=== PATIENT | male | born 1930 | race Caucasian/White ===

== ENCOUNTER 2018-05-04 05:51 | Inpatient (IN) ==
[2018-05-04] MEDS ORDERED: Iohexol 350 MG/ML 100 ML Vial (for Cath Lab) IVCONTRAST ONE (05:52)
[2018-05-04 07:00] LABS: Baso # (Auto) 0.1 th/mm3 (0.0-0.2); Baso % (Auto) 0.8 % (0.0-2.0); Eos # (Auto) 0.1 th/mm3 (0.0-0.4); Eos % (Auto) 1.1 % (0.0-4.0); Hematocrit 44.5 % (39.0-51.0); Lymph # (Auto) 2.3 th/mm3 (1.0-4.8); Lymph % (Auto) 19.4 % (9.0-44.0); Mean Corpuscular HGB Conc 33.6 % (32.0-36.0); Mean Corpuscular Hemoglobin 30.8 pg (27.0-34.0); Mean Corpuscular Volume 91.7 fL (80.0-100.0); Mean Platelet Volume 8.2 fL (7.0-11.0); Mono % (Auto) 8.8 % (0.0-8.0); Neut # (Auto) 8.3 th/mm3 (1.8-7.7); Neut % (Auto) 69.9 % (16.0-70.0); Platelet Count 180 th/mm3 (150-450); Red Blood Count 4.85 mil/mm3 (4.50-5.90); White Blood Count 11.9 th/mm3 (4.0-11.0)
[2018-05-04 07:08] LABS: Activated Partial Thrombo Time 27.6 sec (24.3-30.1); INR 1.1 Ratio
[2018-05-04 07:18] LABS: Calcium 9.1 mg/dL (8.5-10.1); Carbon Dioxide 28.6 meq/L (21.0-32.0)
[2018-05-04 08:13] LABS: Bilirubin,Urine Negative (Negative); Clarity,Urine Clear (Clear); Color,Urine Yellow (Yellw/Straw); Glucose,Urine (UA) Negative (Negative); Leukocyte Esterase,Urine Negative (Negative); Mucus,Urine Few /lpf (Occasional); Nitrite,Urine Negative (Negative); Specific Gravity,Urine 1.018 (1.002-1.035); Squamous Epithelial Cell,Urine <1 /hpf (0-5)
--- NOTE | 2018-05-04 08:14 | P.FRAIL ---
Frailty Index Date: May 04, 2018 Height: 167.64 cm Weight: 70.6 kg BMI: 25.1 Assessment Performed: Outpatient - Albumin Normal Albumin range: 3.5-5.0 g/dL Pass/Fail: Pass (4.1) - [place] Activities of Daily Living Bathing (bathes self/help in single area): [place] Dressing (gets/puts clothes on self): [place] (pt legally blind and needs help getting clothes. can dress self) Toileting (goes without help): [place] Transferring (unassisted or mechanical aides): [place] Continence (complete self-control): [place] Feeding (self, prep by another allowed): [place] Total ADL Score: 5 Pass/Fail: Pass - Journeyman Pipe Welder Strength 3 BMI Cutoff for Journeyman Pipe Welder Strength (Kg) <= 24 <= 29 24.1 - 28 <= 30 > 28 <= 32 Journeyman Pipe Welder Strength - Grasp 1: 24 Journeyman Pipe Welder Strength - Grasp 2: 22 Journeyman Pipe Welder Strength - Grasp 3: 22 Journeyman Pipe Welder Strength - Average: 22.6 Pass/Fail: Fail - 15-Foot Walk 3 Height 15-Foot Walk Cutoff Time <= 173 cm >= 7 seconds > 173 cm >= 6 seconds 15-Foot Walk (seconds): 11 (pt legally blind, uses cane, c/o knee pain, no sob) Pass/Fail: Fail - Total Frailty Total Frailty (out of 4): 2
[2018-05-04] MEDS ORDERED: Heparin/NS PF Inj 1,500 ML ONE (08:22)
[2018-05-04] MEDS ORDERED: fentaNYL Citrate Inj 100 MCG/2 ML Ampul ONE (08:32)
--- NOTE | 2018-05-04 09:52 | P.PCN ---
Date of procedure: 05/04/18 Pre-op diagnosis: Severe aortic valve stenosis Procedure: Procedure performed: 1. Fluoroscopy with interpretation 2. Coronary angiography 3. Right heart catheterization Methods: Risks, benefits, and alternatives were discussed with the patient. Patient understood and consented to the procedure. Patient was brought into the catheterization lab and placed in catheterization table. Right groin was prepped and draped in sterile fashion. Right groin was anesthetized with 2% lidocaine. Right femoral vein was accessed and a 7 [place] 11 cm sheath was placed without difficulty. Right common femoral artery was accessed and a 5 [place] 11 cm sheath was placed without difficulty. We had difficulty navigating the tortuous iliac vessels and selectively engaging the coronaries. The right common femoral sheath was upsized to a 6 [place] 25 cm sheath. Coronary angiography: 1. The left main coronary artery has 90% distal stenosis at the bifurcation of the left anterior descending and left circumflex coronary arteries. 2. The left anterior descending coronary artery has quite a bit of tortuosity and gives rise to a diagonal branch. The left anterior descending and diagonal branches have only minor luminal irregularities. 3. The left circumflex also has tortuous vessels in a first obtuse marginal branch with minor luminal irregularities. 4. 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 The mid right coronary artery is a 75% calcific stenosis the posterior descending branch originates off the right coronary artery making it a dominant vessel. The right coronary has only minor luminal irregularities. Right heart catheterization: A 7 [place] pulmonary arterial catheter was advanced to the right femoral venous sheath to the level of the right atrium under fluoroscopic guidance. Hemodynamics were performed in all chambers while venting to the pulmonary The wedge position. Hemodynamics are as follows. 1. Right atrial pressure 7 mmHg 2. Right ventricular pressure 37/3 mmHg 3. Pulmonary arterial pressure 28/8 mmHg 4. Pulmonary He wedge position 9 mmHg 5. Cardiac output 3.9 L/min 6. Cardiac index 2.2 L/min/m Conclusions: 1. 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 Severe aortic valve stenosis 3. Normal left and right-sided filling pressures. Normal cardiac output/index. Plan: We will consult cardiothoracic surgery for consideration of surgical aortic valve replacement in combination with coronary artery bypass surgery. Given the patient's advanced age and comorbidities in addition to calcific aorta, we will have to determine if he is a surgical candidate. A percutaneous approach would be very high risk and involve aortic valvuloplasty, Impella left ventricular percutaneous assist device placement, and multivessel coronary intervention.
--- NOTE | 2018-05-04 09:57 | CATHPROC ---
[employer] HIS Report Study Information Study Number Admission Scheduled Start Study Start [id number] May 04 2018 5:51AM 05/04/2018 May 04 2018 8:11AM [place] Service Cath Endovascular Study Admit Source Facility Department Other [facility] - [facility] Physician and Clinical Staff Initial Michael Gorman Flat Screen Worker Carlos Julian,RN Recorder Saul, Aidan,RT(R) Scrub Viridiana, Selam,PHARMACOGNOSIST TECH2 Procedures Performed Procedure Location (Site) Vessel Name Coronary Angiograms LCA Left Coronary Wire insertion Fem Art (right) Femoral Art Equipment Time Warehouse Incentive Selector Description Size Mfg Part Number Used/Scraped ARROW INTERNATIONAL CATHETER, FR.7 BALLOON [id number] 08:24 FR 7 Used INC. WEDGE PRESSURE *[id number] TRANSDUCER, TRNUOFFER [id number] 08:24 ORTEGA ABREU * Used W/STOCKCOCK *[id number] *[id number] *[id number] [id number] *[id number] *[id number] WIRE, AMPLATZ SUPER STIFF 09:11 [employer] Inc.tech 180CM 87822 Used 3MMJ [id number] 08:24 [employer] BLANKET,WARM AIR CCL * Used *[id number] 08:24 [employer] PACK, CCL CUSTOM * Used *[id number] 08:24 [employer] PACER PEN, SKIN DUAL W/ RULER * Used *[id number] 08:24 [employer] WIRE, 3MMJ .035 180CM 180CM Used *[id number] 08:24 NAMIC MANIFOLD, 2 PORT * Used *[id number] 08:24 NAMIC MANIFOLD, 4 PORT * Used *[id number] 08:24 NYCOMED OMNIPAQUE, 350 MG, 150ML 150ML [id number] Used [id number] 08:24 TERUMO MEDICAL SHEATH, FR5 TERUMO (10CM) FR 5 Used *[id number] 09:00 TERUMO MEDICAL SHEATH, FR5 TERUMO (25CM) FR 5 Used *[id number] 09:05 TERUMO MEDICAL SHEATH, FR6 TERUMO (25CM) FR 6 Used *[id number] 08:24 TERUMO MEDICAL SHEATH, FR7 TERUMO (10CM) FR 7 Used *[id number] Equipment Model, Serial, Lot Number and Expiration Data Description Model Number Serial Number Lot Number Expiration Date WIRE, AMPLATZ SUPER STIFF 3MMJ [id number] 10-06-2020 History: Allergies Allergy Reaction Plavix History: Risk Factors Family History of Hypertension Dyslipidemia Previous [place] Previous Heart Failure Premature CAD Yes Yes Yes No No Prior Valve Prior PCI Prior CABG Surgery No No No Cerebrovascular Peripheral Artery Chronic Lung On Dialysis Diabetes Disease Disease Disease No Yes No No No History: Stress Tests Stress or Imaging Studies Performed No History: Other Current Smoker No Labs Hgb (g/dl) Hct (%) WBC (l/cumm) Platelets (thousands) 11.60-17.00 35.00-51.00 4.00-11.00 150.00-450.00 15.0 44.5 11.9 180 Glucose (mg/dl) BUN (mg/dl) Creatinine (mg/dl) BUN:Creatinine (1:x) 74.00-106.00 7.00-18.00 0.50-1.30 10.00-20.00 90 15 0.9 16.7 Na (meq/l) K (meq/l) 136.00-145.00 3.50-5.10 140 4 INR (PTT:PT) 0.90-1.10 1.1 CPK-MB (ng/ML) 0.50-3.60 Not Drawn Medication Medication Total Dose (Bolus/Oral) Medication Total Dosage/Unit 1% XYLOCAINE 20 mL FENTANYL 50 mcg VERSED 2 mg Medications (Bolus/Oral) Medication Time Given Dosage/Unit Administered By Reason VERSED 05/04/2018 8:42:20 AM 1 mg Carlos Julian 1 mg VERSED given in lab by Carlos Julian RN in Left Antecubital via Peripheral IV. Ordered by Michael Nunn. FENTANYL 05/04/2018 8:43:51 AM 25 mcg Carlos Julian 25 mcg FENTANYL given in lab by Carlos Julian RN in Left Antecubital via Peripheral IV. Ordered by Michael Lozoya. 1% XYLOCAINE 05/04/2018 8:43:53 AM 20 mL Michael Nunn 20 mL 1% XYLOCAINE given in lab by Michael Nunn in Right Groin via Subcutaneous. Ordered by Michael Nunn. VERSED 05/04/2018 8:51:44 AM 1 mg Eliel, Carlos 1 mg VERSED given in lab by Carlos Julian RN in Left Antecubital via Peripheral IV. Ordered by Michael Nunn. FENTANYL 05/04/2018 8:52:01 AM 25 mcg Eliel, Carlos 25 mcg FENTANYL given in lab by Carlos Julian RN in Left Antecubital via Peripheral IV. Ordered by Michael Lozoya. Medication (Drip) Medication Time Given Dosage/Unit Concentration/Unit Diluent (ml) Solution IV Solutions 05/04/2018 8:14:43 AM 0 mL (IV) 500 NaCl .9 Patient arrived on IV Solutions given by Michael Nunn in Left Antecubital via Peripheral IV. Pump/D rip Flow = 20 ml/hr using NaCl .9. Ordered by Michael Nunn. Initial Case Assessment Initial Case Assessment Cardiovascular HR Rhythm NIBP Chest Pain 60 sr 174/85 0 Edema Present Skin color Skin None Normal Warm Dry Circulatory - Right Pulses Dorsalis Pedis Femoral 2 2 Scale (0,1,2,3,4,d) Circulatory - Left Pulses Dorsalis Pedis Femoral 2 2 Scale (0,1,2,3,4,d) Neurological State Oriented to time-place- Alert Moves all extremities person Respiration - General Respiration Rate SpO2 (%) O2 (lpm) (B/min) 18 98 0 Final Case Assessment Cardiovascular HR Rhythm NIBP Chest Pain 55 sr 154/64 0 Edema Present Skin color Skin None Normal Warm Dry Circulatory - Right Pulses Dorsalis Pedis Femoral 2 2 Scale (0,1,2,3,4,d) Circulatory - Left Pulses Dorsalis Pedis Femoral 2 2 Scale (0,1,2,3,4,d) Neurological State Oriented to time-place- Alert Moves all extremities person Respiration - General Respiration Rate SpO2 (%) O2 (lpm) (B/min) 18 99 0 Chronological Log Time Study Chronological Log 8:11:12 Patient arrived via Bed. 8:11:14 Patient Name, D.O.B, / Armband Verified By R.N. 8:11:16 Consent signed by the physician and the patient and verified by the [facility] staff. 8:11:17 Pre-op and post- op instructions given; patient acknowledges understanding of instructions. Verbal Stimulation=~VERBAL~ Physical Stimulation=~PHYSICAL~ Airway=~AIRWAY~ Respiration=~RESPIR ATION~ 8:13:48 TOTAL=~TOTAL~. (0=absent, 1=limited, 2=present) 8:13:56 Patient has been NPO for More than 6Hrs. 8:13:57 Skin Breakdown- 8:13:59 Patient Warmer Placed on the Table. 8:14:32 Patient Warmer Placed on the Table. 8:14:34 Ashley Prominences Protected 8:14:36 A # 20 IV was noted in the Antecubital (left). Grade = 0 Patient arrived on IV Solutions given by Michael Nunn in Left Antecubital via Peripheral IV. Pump/Drip Flow = 20 8:14:43 ml/hr using NaCl .9. Ordered by Michael Nunn. 8:14:48 History and physical on the chart or being dictated. 8:14:49 Assessment: Initial Case Vitals capture started with the following parameters, Patient=Adult, Interval=5 min, Initial Pr yrxyce=624 mmHg, 8:17:23 Deflation Rate=5 mmHg, Cuff placed on Left Arm Assessment: Initial Case, HR=60 BPM, Rhythm=sr, RBTS=365/85 mmhg, Chest Pain=0, Edema=None, [place] r=Normal, Skin = Warm, Dry Right Pulses: Dwayne Ped=2, Femoral=2 8:17:35 Left Pulses: Dwayne Ped=2, Femoral=2 Neurological: State=Alert, Ox3, DOHERTY Respiration: Resp=18 B/min, SpO2=98 %, O2=0 lpm 8:18:05 PAAR=591/85 mmhg, SpO2=97.0 %, Resp=14 B/min, Rose=2 8:18:24 Bilateral groins prepped with 2% chlorhexidine, and draped after a 3 minute waiting time. 8:21:38 Reference ECG taken 8:23:11 HR=63 bpm, TDLH=243/72 mmhg, XlM5=065.0 %, Resp=12 B/min 8:28:12 HR=53 bpm, PFAL=696/72 mmhg, SpO2=99.0 %, Resp=9 B/min, Rose=2 8:29:41 Pressure channel 1 zeroed. 8:33:13 HR=49 bpm, FMCW=040/57 mmhg, SpO2=99.0 %, Resp=7 B/min, Rose=2 8:34:34 MD paged 8:38:10 HR=58 bpm, SYZX=773/60 mmhg, SpO2=99.0 %, Resp=7 B/min, Orse=2 Time Out. Correct patient, correct procedure, correct physician, labs, allergies, and equipment verified with hoisting laborer 8:39:27 team present. Fire risk assesment completed (see hard stop sheet for coding). Time Out Concu rred by MD and individual staff in procedure. 8:39:37 Presedation re-assessment performed by [facility] RN. 8:42:20 1 mg VERSED given in lab by Carlos Julian RN in Left Antecubital via Peripheral IV. Ordered by Michael Nunn. 8:43:09 HR=52 bpm, ASWC=489/67 mmhg, SpO2=98.0 %, Resp=7 B/min, Rose=2 8:43:41 Case Start 8:43:45 Verbal Stimulation=2 Physical Stimulation=2 Airway=2 Respiration=2 TOTAL=8. (0=absent, 1=joyce ited, 2=present) 8:43:51 25 mcg FENTANYL given in lab by Carlos Julian RN in Left Antecubital via Peripheral IV. Orde red by Michael Nunn. 8:43:53 20 mL 1% XYLOCAINE given in lab by Michael Nunn in Right Groin via Subcutaneous. Ordered b Michael Denis. 8:45:09 Access site was Right Femoral Vein. 8:45:26 A SHEATH, FR7 TERUMO (10CM) FR 7 was advanced into the Fem Vein (right) using the Percutaneo us technique. 8:47:58 HR=56 bpm, XLHX=194/63 mmhg, SpO2=95.0 %, Resp=9 B/min, Rose=2 8:51:44 1 mg VERSED given in lab by Carlos Julian RN in Left Antecubital via Peripheral IV. Ordered by Michael Nunn. 8:52:01 25 mcg FENTANYL given in lab by Carlos Julian RN in Left Antecubital via Peripheral IV. Orde red by Michael Nunn. 8:52:06 Access site was Right Femoral Artery. 8:52:21 A SHEATH, FR5 TERUMO (10CM) FR 5 was advanced into the Fem Art (right) using the Percutaneou s technique. 8:52:59 A CATHETER, FR.7 BALLOON WEDGE PRESSURE FR 7 was inserted via Fem Vein (right) 8:53:03 HR=65 bpm, NIBP=94/52 mmhg, SpO2=89.0 %, Resp=8 B/min, Rose=2 Recorded Pressure: RA, HR=55, Condition=Condition 1 8:53:40 (Right Atrium) RA 76/5 Recorded Pressure: RV, HR=51, Condition=Condition 1 8:53:57 (Right Ventricle) RV 37/3/5 Recorded Pressure: MPA, HR=66, Condition=Condition 1 8:54:35 (Main Pulmonary Artery) MPA 10/03/17 Recorded Pressure: PCW, HR=65, Condition=Condition 1 8:54:52 (Pulmonary Capillary Wedge) PCW 8:55:52 [place]le Catheter Removed A JL 4.0 INFINITI CATHETER FR 5 was advanced over a wire. OMNIPAQUE, 350 MG, 150ML 150ML was use d for 8:56:07 injections. 8:58:32 HR=55 bpm, RAKY=289/65 mmhg, SpO2=94.0 %, Resp=13 B/min, Rose=2 8:59:39 Catheter was removed 8:59:46 A WIRE, 3MMJ .035 180CM 180CM was inserted via Fem Art (right). A SHEATH, FR5 TERUMO (25CM) FR 5 was exchanged in the Fem Art (right). This was necessary in ord er to 8:59:50 accomodate a larger catheter. A JL 5.0 INFINITI CATHETER FR 5 was advanced over a wire. OMNIPAQUE, 350 MG, 150ML 150ML was use d for 9:01:04 injections. 9:03:07 HR=48 bpm, APMF=485/58 mmhg, SpO2=89.0 %, Resp=16 B/min, Rose=2 9:04:17 Catheter was removed 9:04:57 A WIRE, 3MMJ .035 180CM 180CM was inserted via Fem Art (right). A SHEATH, FR6 TERUMO (25CM) FR 6 was exchanged in the Fem Art (right). This was necessary in ord er to 9:05:39 accomodate a larger catheter. 9:08:04 HR=65 bpm, XZPO=785/73 mmhg, SpO2=90.0 %, Resp=13 B/min, Rose=2 A AL 1 INFINITI CATHETER FR 6 was advanced over a wire. OMNIPAQUE, 350 MG, 150ML 150ML was used for 9:08:46 injections. 9:10:32 A WIRE, AMPLATZ SUPER STIFF 3MMJ 180CM was inserted via Fem Art (right). 9:11:52 Wire removed 9:13:07 HR=60 bpm, ECRK=815/60 mmhg, SpO2=95.0 %, Resp=10 B/min, Rose=2 After removing the current catheter a AL .75 GUIDE CATHETER FR 6 was advanced over a WIRE, 3MMJ .035 180CM 9:14:18 180CM. 9:18:06 HR=54 bpm, LEHX=388/60 mmhg, SpO2=95.0 %, Resp=16 B/min, Rose=2 9:20:16 The LCA was injected and visualized at various angles. OMNIPAQUE, 350 MG, 150ML 150ML used. Recorded Pressure: Ao, HR=62, Condition=Condition 1 9:22:08 (Aorta) Ao 134/58/86 9:23:50 HR=63 bpm, VGNH=686/49 mmhg, SpO2=98.0 %, Resp=11 B/min, Rose=2 9:26:53 Catheter was removed 9:26:58 Case End (Physician broke scrub) 9:28:06 HR=61 bpm, JFQK=837/63 mmhg, SpO2=93.0 %, Resp=10 B/min, Rose=2 9:28:27 Sheath removed; pressure applied to access site. 9:33:11 HR=47 bpm, ZHRL=243/55 mmhg, SpO2=95.0 %, Resp=10 B/min, Rose=2 9:38:10 HR=47 bpm, NOSP=778/61 mmhg, SpO2=97.0 %, Resp=14 B/min, Rose=2 9:43:46 HR=61 bpm, RLOB=876/80 mmhg, SpO2=92.0 %, Resp=15 B/min, Rose=2 9:47:11 Saturation: Site=FA (Femoral Artery) , O2=95.1 %, Hgb=15 gm/dl, Condition=Condition 1. Used in calculation. 9:47:27 Saturation: Site=PA (Pulmonary Artery) , O2=66.7 %, Hgb=15 gm/dl, Condition=Condition 1. Use d in calculation. 9:48:17 HR=55 bpm, JAGF=879/78 mmhg, SpO2=96.0 %, Resp=11 B/min, Rose=2 9:54:01 HR=54 bpm, ULKK=506/64 mmhg, Resp=15 B/min, Rose=2 9:55:11 Sterile dressing applied to site Assessment: Final Case, HR=55 BPM, Rhythm=sr, KMIO=417/64 mmhg, Chest Pain=0, Edema=None, Color= Normal, Skin = Warm, Dry Right Pulses: Dwayne Ped=2, Femoral=2 9:55:45 Left Pulses: Dwayne Ped=2, Femoral=2 Neurological: State=Alert, Ox3, DOHERTY Respiration: Resp=18 B/min, SpO2=99 %, O2=0 lpm 9:57:14 Vitals capture stopped. End Study - Contrast Media Used In Study Contrast Total Opened (mL) Total Used (mL) Total Wasted (mL) Omnipaque 75 75 0 End Study - Maximum Contrast Load Max Contrast Load (mL) 392.2 End Study - Radiation Exposure Fluoro Time (minutes) 15.3 End Study - Patient Disposition Complications Transferred To No Outpatient Bed
[2018-05-04] MEDS: Sod Chloride 0.9% Inj 1,000 ML IV.CONT SCH (10:07)
[2018-05-04] MEDS ORDERED: Atropine Inj 1 MG/10 ML Syringe ONE (10:19)
--- NOTE | 2018-05-04 11:21 | P.PNCV ---
- Note Subjective/Hospital Course: pt seen and evaluated for possible surgical AVR vs TAVR CABG vs high risk PCI sts data discussed with pt RISK SCORES About the STS Risk Calculator Procedure: AV Replacement + CAB Risk of Mortality: 7.428% Morbidity or Mortality: 32.395% Long Length of Stay: 20.18% Short Length of Stay: 10.129% Permanent Stroke: 4.051% Prolonged Ventilation: 21.751% DSW Infection: 0.447% Renal Failure: 9.044% Reoperation: 13.318% Objective: Vital Signs - 24 hr 05/04/18 07:06 05/04/18 10:05 Temperature 98.0 F Pulse Rate 64 Respiratory Rate 18 Blood Pressure 185/72 H Pulse Oximetry 96 99 Labs: Laboratory Results - last 12 hr 05/04/18 05/04/18 05/04/18 06:25 06:25 06:25 WBC 11.9 H RBC 4.85 Hgb 15.0 Hct 44.5 MCV 91.7 MCH 30.8 MCHC 33.6 RDW 14.0 Plt Count 180 MPV 8.2 Neut % (Auto) 69.9 Lymph % (Auto) 19.4 [place] % (Auto) 8.8 H Eos % (Auto) 1.1 Baso % (Auto) 0.8 Neut # (Auto) 8.3 H Lymph # (Auto) 2.3 [place] # (Auto) 1.0 H Eos # (Auto) 0.1 Baso # (Auto) 0.1 WBC Differential . Differential Comment Auto diff final PT 11.0 D INR 1.1 APTT 27.6 Sodium Potassium Chloride Carbon Dioxide Anion Gap BUN Creatinine Estimated GFR Random Glucose Calcium Albumin Urine Color Urine Clarity Urine pH Ur Specific [place] Urine Protein Urine Glucose (UA) Urine Ketones Urine Occult Blood Urine Nitrate Urine Bilirubin Urine Urobilinogen Ur Leukocyte Esterase Urine RBC Urine WBC Ur Squamous Epith Cells Urine Mucus Micro UA Comment Ur Microscopic Review Urine Culture Comments Blood Type A Positive Blood Type Recheck Required Antibody Screen Negative 05/04/18 05/04/18 05/04/18 06:25 06:25 06:40 WBC RBC Hgb Hct MCV MCH MCHC RDW Plt Count MPV Neut % (Auto) Lymph % (Auto) [place] % (Auto) Eos % (Auto) Baso % (Auto) Neut # (Auto) Lymph # (Auto) [place] # (Auto) Eos # (Auto) Baso # (Auto) WBC Differential Differential Comment PT INR APTT Sodium 140 Potassium 4.0 Chloride 106 Carbon Dioxide 28.6 Anion Gap 5 BUN 15 Creatinine 0.95 Estimated GFR 75 L Random Glucose 90 Calcium 9.1 Albumin 4.1 Urine Color Yellow Urine Clarity Clear Urine pH 5.0 Ur Specific [place] 1.018 Urine Protein Negative Urine Glucose (UA) Negative Urine Ketones Negative Urine Occult Blood Negative Urine Nitrate Negative Urine Bilirubin Negative Urine Urobilinogen 2.0 H Ur Leukocyte Esterase Negative Urine RBC 1 Urine WBC Less than 1 Ur Squamous Epith Cells <1 Urine Mucus Few H Micro UA Comment Culture not ind Ur Microscopic Review Not Reportable Urine Culture Comments Culture not ind Blood Type Blood Type Recheck Antibody Screen Result Diagrams: 05/04/18 06:25 05/04/18 06:25
[2018-05-04 12:08] LABS: Albumin 4.1 g/dL (3.4-5.0)
[2018-05-04 12:10] LABS: Total Protein 7.6 g/dL (6.4-8.2)
[2018-05-04 17:07] LABS: Hemoglobin A1c 5.4 % (4.3-6.0)
--- NOTE | 2018-05-04 17:18 | CT ---
EXAM DATE: 05/04/2018 2:16 PM EDT AGE/SEX: 87 years / Male INDICATIONS: Preoperative transaortic valve replacement. CLINICAL DATA: This is the patient's initial encounter. Patient reports that signs and symptoms have been present for 1 day and indicates a pain score of 0/10. MEDICAL/SURGICAL HISTORY: Aneurysm, abdominal. Hiatal hernia. Carcinoma, prostatic. None. RADIATION DOSE: 45.16 CTDI (mGy) COMPARISON: No prior exams available for comparison. TECHNIQUE: Volumetric scanning was performed using a multi-row detector CT scanner during bolus infu helder of 90 ml Omnipaque 350 (iohexol) nonionic water-soluble contrast as a single exam dose. The da ta was post processed with a variety of visualization algorithms including full volume maximum intens ity projection, multi-planar sliding thin slab reformation, curved planar reformation, and surface re ndering techniques. Using automated exposure control and adjustment of the mA and/or kV according to patient size, radiation dose was kept as low as reasonably achievable to obtain optimal diagnostic q uality images. DICOM format image data is available electronically for review and comparison. FINDINGS: CARDIAC: The coronary system is right dominant. There are coronary calcifications seen throughout th e coronary vessels.. There is no pericardial effusion AORTIC ROOT/VALVE: 3 cusps are evident with moderate calcifications. The aortic root measures 2.5 cm. Mid ascending thoracic aorta measures 3.2 cm with calcifications in the wall of the aorta.. THORACIC AORTA: There are atherosclerotic calcifications throughout the thoracic aortic arch. There is a three-vessel arch which is patent. No evidence of aneurysmal dilatation or dissection. ABDOMINAL AORTA: There is atherosclerotic plaquing throughout the abdominal aorta. There is aneurysm al dilatation of the infrarenal abdominal aorta measuring 4.4 x 4.4 cm. CELIAC ARTERY: The celiac artery is patent. There is a calcified plaque at the origin.. SMA: The SMA is patent with calcified plaque at the origin. RIGHT RENAL ARTERY: The right renal artery is patent. There are some calcified plaques at the origin . No definite high-grade stenosis. LEFT RENAL ARTERY: There is a focal moderate to high-grade stenosis involving the proximal segment o f the left renal artery approximately 1 cm past its origin. There is calcified plaquing at the origin of the left renal artery. The left renal artery is patent. RIGHT COMMON ILIAC: The right common iliac artery is patent with atherosclerotic plaquing. No focal or significant stenosis is demonstrated. The external iliac and common femoral artery are patent. The common femoral measures 1.2 cm.. LEFT COMMON ILIAC: The left common iliac artery is patent with atherosclerotic plaquing. The externa l iliac artery and common femoral artery are patent. The common femoral measures 1.4 cm.. THORAX: There is a 1.6 cm focal infiltrate versus density in the peripheral right upper lung. There is some chronic changes in both lung fleming. There is some scarring in both bases. ABDOMEN: There is some fatty infiltration of the liver. No dilated biliary ducts. The gallbladder is unremarkable. The spleen and pancreas are grossly within normal limits. The adrenal glands are unrem arkable. Both kidneys are functioning. There is no hydronephrosis. The bowel gas pattern is within no rmal limits. There is stool throughout the colon. PELVIS: The urinary bladder is unremarkable. There are degenerative changes the lumbar spine and pel vis. CONCLUSION: 1. There is a 1.6 cm focal infiltrate versus mass density in the peripheral right upper lung. This m ay be a focal inflammatory process versus mass. There are no prior studies for comparison. If this do es not resolve after appropriate medical therapy, a PET CT could be performed for further evaluation. 2. There is aneurysmal dilatation of the infrarenal abdominal aorta measuring 4.4 x 4.4 cm. There is diffuse atherosclerotic changes throughout the thoracic and abdominal aorta. 3. Short segment focal moderate to possibly high-grade stenosis involving the proximal segment of th e left renal artery. Electronically signed by: Nikos Howell MD 05/04/2018 5:16 PM EDT
[2018-05-05 05:40] LABS: Baso # (Auto) 0.1 th/mm3 (0.0-0.2); Baso % (Auto) 0.6 % (0.0-2.0); Eos # (Auto) 0.1 th/mm3 (0.0-0.4); Eos % (Auto) 0.7 % (0.0-4.0); Hematocrit 35.3 % (39.0-51.0); Hemoglobin 12.1 gm/dL (13.0-17.0); Lymph # (Auto) 2.1 th/mm3 (1.0-4.8); Mean Corpuscular HGB Conc 34.2 % (32.0-36.0); Mean Corpuscular Hemoglobin 30.7 pg (27.0-34.0); Mean Corpuscular Volume 89.9 fL (80.0-100.0); Mean Platelet Volume 8.4 fL (7.0-11.0); Mono # (Auto) 1.3 th/mm3 (0.0-0.9); Mono % (Auto) 11.2 % (0.0-8.0); Neut # (Auto) 8.2 th/mm3 (1.8-7.7); Neut % (Auto) 69.5 % (16.0-70.0); Platelet Count 144 th/mm3 (150-450); Red Blood Count 3.93 mil/mm3 (4.50-5.90); Red Cell Distribution Width 13.8 % (11.6-17.2); White Blood Count 11.9 th/mm3 (4.0-11.0)
[2018-05-05 06:09] LABS: Anion Gap 10 meq/L (5-15); Blood Urea Nitrogen 16 mg/dL (7-18); Calcium 8.3 mg/dL (8.5-10.1); Carbon Dioxide 23.9 meq/L (21.0-32.0); Chloride 108 meq/L (98-107); Glomerular Filtration Rate Greater Than 89 mL/min (>89); Glucose,Random 87 mg/dL (74-106); Potassium 3.5 meq/L (3.5-5.1); Sodium 142 meq/L (136-145)
--- NOTE | 2018-05-05 06:33 | MB ---
cc: Dominguez Tran MD DATE: 05/04/2018 HISTORY OF PRESENT ILLNESS: History of aortic stenosis, presented to Dr. Nunn's office for a transcatheter aortic valve consultation. They have been following his aortic valve. His aortic valve area is now 0.7 cm with a mean gradient of 48 mmHg. He has been somewhat sedentary, but is still able to do some housework and yard work. He underwent cardiac catheterization today for further evaluation, which showed a 90% distal stenosis in the left main coronary artery at the bifurcation of the LAD and the left circumflex artery. 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 The mid coronary artery had 75% calcific stenosis. He did a right-sided heart catheterization, which showed a right atrial pressure of 7 mmHg, pulmonary artery pressure of 28/8, a wedge pressure of 9, cardiac output of 3.9 with an index of 2.2. We were consulted to evaluate for possible aortic valve replacement in combination with coronary artery bypass grafting versus transcatheter aortic valve replacement and high-risk PCI with Impella ventricular assist device placement. PAST MEDICAL HISTORY: The patient has a significant medical history to include chronic atrial fibrillation, history of abdominal aortic aneurysm without rupture, aortic stenosis, cervical radiculopathy, history of CVA in the past, hypertension and hyperlipidemia. He is legally blind. He has some central vision. Coumadin therapy, osteoarthritis, history of prostate cancer treated with resection 11 years ago, history of sick sinus syndrome. PAST SURGICAL HISTORY: Include bilateral cataract surgery, colonoscopy, EGD, history of bilateral knee replacement, prostatectomy, tonsillectomy. FAMILY HISTORY: Father from heart disease. Mother with old age. 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 Remote history of tobacco abuse for a couple of years, quit in 1950s. Rare alcohol. He is unable to drive due to his blindness. He does, however, do some house and yard work. ALLERGIES: THE PATIENT HAS NO KNOWN ALLERGIES. HOME MEDICATIONS: 1. Diltiazem 120 p.o. daily. 2. Lisinopril 5. He takes 2 tablets at bedtime. 3. Coumadin 4 mg. He takes it 1.5 tabs Friday, Friday, Friday, , Friday, Friday. 4. On Friday, he takes aspirin 81 mg. 5. Fish oil. 6. Lovastatin. 7. Brimonidine eyedrops. 8. Latanoprost eye drops. 9. Tramadol 10. Timolol eyedrops. REVIEW OF SYSTEMS: GENERAL: No night sweats, fever, heat and cold intolerance. SKIN: No psoriasis, itching or hives. HEENT: The patient is legally blind. RESPIRATORY: Some occasional shortness of breath with activity. CARDIOVASCULAR: The patient denies any chest pain. No paroxysmal nocturnal dyspnea or orthopnea. GASTROINTESTINAL: No diarrhea or vomiting. GENITOURINARY: No burning, frequency, urgency. CENTRAL NERVOUS SYSTEM: History of prior cerebrovascular accident. ENDOCRINOLOGY: No hypothyroidism or diabetes. PHYSICAL EXAMINATION: VITAL SIGNS: Blood pressure 180/70, heart rate is 64, afebrile, O2 saturation 99 on 2 liters patient is awake, alert, in no acute distress. HEENT: Head is normocephalic, atraumatic. Pupils are equal. Oral mucosa pink, moist. NECK: Supple. No JVD. CARDIOVASCULAR: Heart sounds S1, S2. There is a grade 3/6 systolic murmur best heard on the left sternal border. LUNGS: Clear to auscultation. No wheezes, rales or rhonchi. ABDOMEN: Soft, nontender. No masses or organomegaly. Right groin catheterization site has a small hematoma. EXTREMITIES: No cyanosis, clubbing or edema. The patient did complain of some right foot numbness post-cath. We were able to obtain a strong palpable popliteal pulse and also Doppler post-tibial pulse. Please note, the patient also had a vagal response while they were holding pressure on the groin post-sheath removal and did require IV bolus of fluid and atropine, which he recovered immediately. LABORATORY DATA: Shows hemoglobin 15, hematocrit of 44, white cell count of 11.9, platelet count of 180. Sodium 140, potassium 4.0, BUN of 15, creatinine 0.95. INR 1.1. Urinalysis is unremarkable. Albumin level 4.1. ASSESSMENT AND PLAN: This is an 87-year-old male with severe aortic stenosis with a valve area of 0.7. He has coronary artery disease involving the left main and also the right coronary artery with ejection fraction of 55%. The cardiac films will be evaluated by Dr. Dominguez Tran. The risk of mortality is 7.428, morbidity/mortality of 32. Decision will be made and also with discussion with Dr. Nunn in regard to plan for treatment, which will be decided as per Dr. Dominguez Tran. Brittani Sampson [employer] SUPERVIS[employer] dictating for Dr. Dominguez Tran The patient was examined and chart reviewed on 05/04/2018. I agree with above. The ECHO and angiographic findings were discussed in detail with the patient. I agree that he will maximally benefit from coronary artery bypass grafting and aortic valve replacement therapy. The option of mechanical versus tissue valve was discussed in detail as well as the advantages and disadvantages of both types of valves. He understands the provided information and wishes to discuss it further with his spouse prior to agreeing to surgical intervention. Additionally given his advanced age and significant calcification on fluoroscopy , he will need a chest CT to assure that he does not have heavily calcified or porcelain ascending aorta which would preclude surgical intervention. Should he not be a surgical candidate, then a high risk PCI followed by TAVR may be a viable alternative option. Further therapy depending upon the CT findings as well as the patient's decision regarding his care. Thank you for allowing me to participate in the care of this patient. MD MAK Giron/lemuel , 11:31 AM , 11:43 AM CHRIS
--- NOTE | 2018-05-05 08:37 | P.PNCA ---
Subjective Interval history: no complaints doing well at bedside Medications and Allergies Active Medications: Active Medications Sodium Chloride (Ns Inj) 1,000 mls @ 30 mls/hr IV.CONT .Q24H [facility] Last Infusion: 05/04/18 10:15 Dose: 30 mls/hr Metoclopramide HCl (Reglan Inj) 10 mg IV.PUSH Q4H PRN; Protocol PRN Reason: NAUSEA Oxycodone/Acetaminophen (Percocet 5/325 Mg) 1 tab PO Q4H PRN PRN Reason: PAIN SCALE 1 TO 4 Sodium Chloride (Ns Flush) 2 ml IV.FLUSH BID YULIANA Sodium Chloride (Ns Flush) 2 ml IV.FLUSH PRN PRN PRN Reason: FLUSH AFTER USING IV ACCESS Allergies Allergy/AdvReac Type Severity Reaction Status Date / Time No Known Allergies Allergy Verified 05/04/18 07:24 Home Medications Medication Instructions Recorded Confirmed Type aspirin [Aspirin Low Dose] 81 mg PO DAILY 05/04/18 05/04/18 History diltiazem HCl 120 mg PO DAILY 05/04/18 05/04/18 History dorzolamide-timolol 1 drp OPHTHALMIC (EYE) BID 05/04/18 05/04/18 History latanoprost 1 drp OPHTHALMIC (EYE) QPM 05/04/18 05/04/18 History lisinopril 10 mg PO DAILY 05/04/18 05/04/18 History lovastatin 40 mg PO DAILY 05/04/18 05/04/18 History polyethylene glycol 3350 17 g PO DAILY PRN 05/04/18 05/04/18 History tramadol 50 mg PO Q6H PRN 05/04/18 05/04/18 History Physical Exam Vital signs: Vital Signs 05/04/18 10:05 05/04/18 20:00 05/05/18 00:00 Temperature 97.9 F 98.2 F Pulse Rate 66 51 L Respiratory Rate 18 18 Blood Pressure 122/58 L 138/63 Pulse Oximetry 99 98 100 05/05/18 04:00 Temperature 97.9 F Pulse Rate 62 Respiratory Rate 20 Blood Pressure 140/74 Pulse Oximetry 100 Intake & Output 05/04/18 05/05/18 05/05/18 18:59 06:59 18:59 Intake Total 515 / 515 240 / 240 Output Total 700 / 700 Balance 515 / 515 -460 / -460 Weight 70.6 kg 72.4 kg Intake: IV 515 / 515 Heparin/NS PF Inj 1,500 ML @ 0 15 / 15 mls/hr .ROUTE .STK-MED ONE Rx#: [id number] NS Inj 1,000 ML @ 30 mls/hr IV. 500 / 500 CONT .Q24H YULIANA Rx#:[id number] Oral 240 / 240 Output: Urine 700 / 700 Stool 0 / 0 Other: Weight On Admission 70.6 kg - Constitutional no acute distress - Routine Neck Exam Absent: JVD - Routine Respiratory Exam Present: CTA bilaterally - Routine Cardiovascular Exam Present: RRR, murmur - Routine Abdominal Exam Present: soft, normoactive bowel sounds - Routine Extremities Exam Absent: edema - Routine Neurological Exam Absent: sensory deficit, motor deficit Results 05/05/18 03:59 05/05/18 03:59 Cardiac Enzymes 05/04/18 Range/Units 06:25 AST 11 L (15-37) U/L Coagulation 05/04/18 Range/Units 06:25 PT 11.0 D (9.8-11.6) sec APTT 27.6 (24.3-30.1) sec CBC 05/04/18 05/05/18 Range/Units 06:25 03:59 WBC 11.9 H 11.9 H (4.0-11.0) th/mm3 RBC 4.85 3.93 L (4.50-5.90) mil/mm3 Hgb 15.0 12.1 L D (13.0-17.0) gm/dL Hct 44.5 35.3 L (39.0-51.0) % Plt Count 180 144 L (150-450) th/mm3 Neut # (Auto) 8.3 H 8.2 H (1.8-7.7) th/mm3 Lymph # (Auto) 2.3 2.1 (1.0-4.8) th/mm3 [place] # (Auto) 1.0 H 1.3 H (0.0-0.9) th/mm3 Eos # (Auto) 0.1 0.1 (0.0-0.4) th/mm3 Baso # (Auto) 0.1 0.1 (0.0-0.2) th/mm3 Comprehensive Metabolic Panel 05/04/18 05/04/18 05/04/18 Range/Units 06:25 06:25 06:25 Sodium 140 (136-145) meq/L Potassium 4.0 (3.5-5.1) meq/L Chloride 106 (98-107) meq/L Carbon Dioxide 28.6 (21.0-32.0) meq/L BUN 15 (7-18) mg/dL Creatinine 0.95 (0.60-1.30) mg/dL Calcium 9.1 (8.5-10.1) mg/dL Direct Bilirubin 0.2 (0.0-0.2) mg/dL Indirect Bilirubin 0.5 (0.0-0.8) mg/dL AST 11 L (15-37) U/L ALT 18 (12-78) U/L Alkaline Phosphatase 96 (45-117) U/L Total Protein 7.6 (6.4-8.2) g/dL Albumin 4.1 4.1 (3.4-5.0) g/dL 05/05/18 Range/Units 03:59 Sodium 142 (136-145) meq/L Potassium 3.5 (3.5-5.1) meq/L Chloride 108 H (98-107) meq/L Carbon Dioxide 23.9 (21.0-32.0) meq/L BUN 16 (7-18) mg/dL Creatinine 0.81 (0.60-1.30) mg/dL Calcium 8.3 L D (8.5-10.1) mg/dL Direct Bilirubin (0.0-0.2) mg/dL Indirect Bilirubin (0.0-0.8) mg/dL AST (15-37) U/L ALT (12-78) U/L Alkaline Phosphatase (45-117) U/L Total Protein (6.4-8.2) g/dL Albumin (3.4-5.0) g/dL Intake and Output 05/04/18 05/05/18 05/05/18 22:59 06:59 14:59 Intake Total 240 / 240 Output Total 700 / 700 Balance -460 / -460 Intake: Oral 240 / 240 Output: Urine 700 / 700 Stool 0 / 0 Other: Weight 72.4 kg - Imaging and Cardiology Imaging: Impressions Chest CT 05/04/18 00:00 CONCLUSION: 1. There is a 1.6 cm focal infiltrate versus mass density in the peripheral right upper lung. This may be a focal inflammatory process versus mass. There are no prior studies for comparison. If this does not resolve after appropriate medical therapy, a PET CT could be performed for further evaluation. 2. There is aneurysmal dilatation of the infrarenal abdominal aorta measuring 4.4 x 4.4 cm. There is diffuse atherosclerotic changes throughout the thoracic and abdominal aorta. 3. Short segment focal moderate to possibly high-grade stenosis involving the proximal segment of the left renal artery. Assessment and Plan - Assessment (1) Severe aortic stenosis Code(s): I35.0 - Nonrheumatic aortic (valve) stenosis Status: Acute (2) Coronary artery disease Code(s): I25.10 - Atherosclerotic heart disease of [place] coronary artery without angina pectoris Status: Acute - Plan discussed case in TAVR conference discussed case with Dr. Tran patient to consider surgical AVR + CABG. if declines, will decide strategy for revascularization (BAV +/- Impella + multiple vessel PCI (LM,LAD,LCx,RCA) continue supportive care high risk for sudden cardiac
--- NOTE | 2018-05-05 09:49 | P.PNCV ---
- Note Subjective/Hospital Course: 87/ male history of aortic stenosis, presented to Dr. Nunn's office for a transcatheter aortic valve consultation. His aortic valve area is now 0.7 cm with a mean gradient of 48 mmHg. He has been somewhat sedentary, but is still able to do some housework and yard work. He underwent cardiac catheterization today for further evaluation, which showed a 90% distal stenosis in the left main coronary artery at the bifurcation of the LAD and the left circumflex artery. 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 The mid coronary artery had 75% calcific stenosis. Right-sided heart catheterization, showed a right atrial pressure of 7 mmHg, pulmonary artery pressure of 28/8, a wedge pressure of 9, cardiac output of 3.9 with an index of 2.2. We were consulted to evaluate for possible aortic valve replacement in combination with coronary artery bypass grafting versus transcatheter aortic valve replacement and high-risk PCI with Impella ventricular assist device placement. PAST MEDICAL HISTORY: chronic atrial fibrillation, history of abdominal aortic aneurysm without rupture, aortic stenosis, cervical radiculopathy, history of CVA in the past, hypertension and hyperlipidemia. He is legally blind. He has some central vision. Coumadin therapy, osteoarthritis, history of prostate cancer treated with resection 11 years ago, history of sick sinus syndrome. 05/05 pt now at bedside, further discussion with pt and and Dr Nunn in regards to treatment options Dr Tran will discuss final plans with and pt this afternoon Objective: Vital Signs - 24 hr 05/04/18 10:05 05/04/18 20:00 05/05/18 00:00 Temperature 97.9 F 98.2 F Pulse Rate 66 51 L Respiratory Rate 18 18 Blood Pressure 122/58 L 138/63 Pulse Oximetry 99 98 100 05/05/18 04:00 Temperature 97.9 F Pulse Rate 62 Respiratory Rate 20 Blood Pressure 140/74 Pulse Oximetry 100 Labs: Laboratory Results - last 12 hr 05/05/18 05/05/18 03:59 03:59 WBC 11.9 H RBC 3.93 L Hgb 12.1 L D Hct 35.3 L MCV 89.9 MCH 30.7 MCHC 34.2 RDW 13.8 Plt Count 144 L MPV 8.4 Neut % (Auto) 69.5 Lymph % (Auto) 18.0 [place] % (Auto) 11.2 H Eos % (Auto) 0.7 Baso % (Auto) 0.6 Neut # (Auto) 8.2 H Lymph # (Auto) 2.1 [place] # (Auto) 1.3 H Eos # (Auto) 0.1 Baso # (Auto) 0.1 WBC Differential . Differential Comment Auto diff final Sodium 142 Potassium 3.5 Chloride 108 H Carbon Dioxide 23.9 Anion Gap 10 BUN 16 Creatinine 0.81 Estimated GFR Greater than 89 Random Glucose 87 Calcium 8.3 L D Result Diagrams: 05/05/18 03:59 05/05/18 03:59 Pulmonary: GENERAL: A&O x 3 / legally blind SKIN: Warm and dry. HEAD: Normocephalic. EYES: No scleral icterus. No injection or drainage. NECK: Supple, trachea midline. No JVD or lymphadenopathy. CARDIOVASCULAR: irregular rate and rhythm, 3/6 MAREN RESPIRATORY: Breath sounds equal bilaterally. No accessory muscle use. GASTROINTESTINAL: Abdomen soft, non-tender, nondistended. MUSCULOSKELETAL: No cyanosis, or edema. BACK: Nontender without obvious deformity. No CVA tenderness.
[2018-05-05] MEDS: Sod Chloride 0.9% Inj 1,000 ML IV.CONT SCH (10:00)
[2018-05-05] MEDS ORDERED: Polyethylene Glycol 3350 17 GM Packet PO PRN (15:39)
[2018-05-05] MEDS ORDERED: Dextrose 50% in Water 50 ML Vial IV.PUSH PRN (15:43)
[2018-05-05] MEDS ORDERED: Insulin Regular (For Infusion) 100 UNIT in Sodium Chlor 0.9% Inj 99 ML IV.CONT PRN (15:43)
[2018-05-05] MEDS ORDERED: Sodium Chloride 0.9% Irr Bot 500 ML, ceFAZolin Inj 500 MG IRRIGATION SCH ×2 (15:45)
[2018-05-05] MEDS ORDERED: Sodium Chlor 0.9% Inj 77.5 ML, Papaverine Inj 60 MG, Nitroglycerin Inj 100 MCG, dilTIAZ... IRRIGATION SCH ×3 (15:45)
[2018-05-05] MEDS ORDERED: Chlorhexidine 4% Topical 120 APPLIC/120 ML Bottle TOPICAL SCH (15:45)
[2018-05-05 18:06] LABS: Bilirubin,Urine Negative (Negative); Clarity,Urine Hazy (Clear); Color,Urine Yellow (Yellw/Straw); Glucose,Urine (UA) Negative (Negative); Leukocyte Esterase,Urine Negative (Negative); Mucus,Urine Few /lpf (Occasional); Nitrite,Urine Negative (Negative); Specific Gravity,Urine 1.017 (1.002-1.035); Squamous Epithelial Cell,Urine <1 /hpf (0-5); Urobilinogen,Urine 4 or Greater mg/dL (Less than 2)
--- NOTE | 2018-05-05 20:24 | US ---
EXAM DATE: 05/05/2018 3:43 PM EDT AGE/SEX: 87 years / Male INDICATIONS: PreOp cardiac surgery. CLINICAL DATA: This is the patient's initial encounter. Patient reports that signs and symptoms have been present for 1 day and indicates a pain score of 0/10. MEDICAL/SURGICAL HISTORY: Aneurysm, abdominal. Hypertension. Atrial fibrillation. Angina. Aort ic stenosis. Arthritis. Blind. Hyperlipidemia. Prostate cancer. Sick sinus syndrome. Hiatal hernia. None. COMPARISON: No prior exams available for comparison. VELOCITY PARAMETERS: ICA/CCA Ratio: Right 1.6 , Left 1.2 ICA: Right 104.8 cm/sec, Left 94.6 cm/sec CCA: Right 65.8 cm/sec, Left 80.2 cm/sec ECA: Right 73.5 cm/sec, Left 75.0 cm/sec Vertebral: Right 63.3 cm/sec antegrade, Left 40.9 cm/sec antegrade FINDINGS: Right Carotid: Moderate partially calcified arteriosclerotic plaque is visualized throughout the [place] common carotid and proximal ICA. Less than 50% luminal narrowing by grayscale analysis.The wavefo emely are within normal limits. Left Carotid: Moderate partially calcified arteriosclerotic plaque is visualized throughout the dist al common carotid and proximal ICA. Less than 50% luminal narrowing by grayscale analysis.. The wavef orms are within normal limits. Other: None. CONCLUSION: Calcified atherosclerotic plaque bilaterally slightly more abundant on the left without a hemodynamic ally significant stenosis involving either carotid artery. Antegrade flow involving both vertebral ar teries. Electronically signed by: Mauricio Paredes MD 05/05/2018 8:22 PM EDT
--- NOTE | 2018-05-05 20:32 | US ---
EXAM DATE: 05/05/2018 3:43 PM EDT AGE/SEX: 87 years / Male INDICATIONS: PreOp cardiac surgery. CLINICAL DATA: This is the patient's initial encounter. Patient reports that signs and symptoms have been present for 1 day and indicates a pain score of 0/10. MEDICAL/SURGICAL HISTORY: . Atrial fibrillation. Angina. Aortic stenosis. Arthritis. Blind. Hyp erlipidemia. Prostate cancer. Sick sinus syndrome. Hiatal hernia. None. COMPARISON: No prior exams available for comparison. TECHNIQUE: Venous ultrasound of both lower extremities was performed from the inguinal ligament to t he proximal calf. Real-time, color Doppler and spectral tracing, compression and augmentation techni ques were used. FINDINGS: Right Leg: Normal compression of the deep venous system from the inguinal region to the proximal jessica f. No echogenic clot is seen. Normal response of the venous system to augmentation and respiration. Left Leg: Normal compression of the deep venous system from the inguinal region to the proximal calf . No echogenic clot is seen. Normal response of the venous system to augmentation and respiration. Other: None. CONCLUSION: Negative exam. No sonographic or Doppler findings of deep venous thrombosis. Electronically signed by: Zachary Wills MD 05/05/2018 8:30 PM EDT
--- NOTE | 2018-05-05 20:33 | US ---
EXAM DATE: 05/05/2018 3:43 PM EDT AGE/SEX: 87 years / Male INDICATIONS: PreOp cardiac surgery. CLINICAL DATA: This is the patient's initial encounter. Patient reports that signs and symptoms have been present for 1 day and indicates a pain score of 0/10. MEDICAL/SURGICAL HISTORY: . Atrial fibrillation. Angina. Aortic stenosis. Arthritis. Blind. Hyp erlipidemia. Prostate cancer. Sick sinus syndrome. Hiatal hernia. None. COMPARISON: [facility] – [place], VENOUS DOPPLER LEG BI, 05/05/2018. . MEASUREMENTS: RIGHT THIGH: Proximal:__8 mm Mid:__ 2 mm Distal:__2 mm LEFT THIGH: Proximal:__6 mm Mid:__3 mm Distal:__2 mm RIGHT CALF: Proximal:__Non-visualized Mid:__Non-visualized Distal:__Non-visualized LEFT CALF: Proximal:__1 mm Mid:__Non-visualized Distal:__Non-visualized FINDINGS: The venous system of the lower extremities are patent by color Doppler imaging. Measurements of the leg veins (in mm) are listed above. CONCLUSION: 1. Venous mapping as above. 2. Nonvisualization of the greater saphenous throughout the right calf. Nonvisualization of the grea ter saphenous in the mid and distal portions of the left calf. Electronically signed by: Zachary Wills MD 05/05/2018 8:31 PM EDT
[2018-05-05] MEDS: Latanoprost 0.005% Opth Drops 2.5 ML Bottle EACH EYE SCH (20:47)
[2018-05-05] MEDS: Dorzolamide-Timolol 2/0.5% Opth Drops 10 ML Bottle EACH EYE SCH (20:47)
[2018-05-05] MEDS: Docusate Sodium 100 MG Capsule PO SCH (20:47)
[2018-05-06] MEDS: Sod Chloride 0.9% Inj 1,000 ML IV.CONT SCH (08:29)
[2018-05-06] MEDS: dilTIAZem CD 120 MG Capsule PO SCH (08:30)
[2018-05-06] MEDS: Dorzolamide-Timolol 2/0.5% Opth Drops 10 ML Bottle EACH EYE SCH ×2 (08:30→20:41)
[2018-05-06] MEDS: Docusate Sodium 100 MG Capsule PO SCH ×2 (08:30→20:43)
--- NOTE | 2018-05-06 11:05 | P.PNCV ---
- Note Subjective/Hospital Course: 87/ male history of aortic stenosis, presented to Dr. Nunn's office for a transcatheter aortic valve consultation. His aortic valve area is now 0.7 cm with a mean gradient of 48 mmHg. He has been somewhat sedentary, but is still able to do some housework and yard work. He underwent cardiac catheterization today for further evaluation, which showed a 90% distal stenosis in the left main coronary artery at the bifurcation of the LAD and the left circumflex artery. 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 The mid coronary artery had 75% calcific stenosis. Right-sided heart catheterization, showed a right atrial pressure of 7 mmHg, pulmonary artery pressure of 28/8, a wedge pressure of 9, cardiac output of 3.9 with an index of 2.2. We were consulted to evaluate for possible aortic valve replacement in combination with coronary artery bypass grafting versus transcatheter aortic valve replacement and high-risk PCI with Impella ventricular assist device placement. PAST MEDICAL HISTORY: chronic atrial fibrillation, history of abdominal aortic aneurysm without rupture, aortic stenosis, cervical radiculopathy, history of CVA in the past, hypertension and hyperlipidemia. He is legally blind. He has some central vision. Coumadin therapy, osteoarthritis, history of prostate cancer treated with resection 11 years ago, history of sick sinus syndrome. 05/05 pt now at bedside, further discussion with pt and and Dr Nunn in regards to treatment options Dr Tran will discuss final plans with and pt this afternoon 05/06 pt and agreeable for surgery on Friday venous mapping : nonvisualization of greater saphenous throughout the right calf , nonvisualization of greater saphenous in the mid and distal portions of left calf CT chest aneurysmal dilatation of infrarenal abdominal aorta 4.4x4.4cm 1.6 cm focal infiltrate vs mass peripheral right upper lung Objective: Vital Signs - 24 hr 05/05/18 12:00 05/05/18 19:00 05/05/18 20:00 Temperature 97.8 F 98.7 F Pulse Rate 72 62 64 Respiratory Rate 20 14 Blood Pressure 120/76 158/67 H Pulse Oximetry 96 98 05/05/18 21:00 05/05/18 22:00 05/05/18 23:00 Temperature 98.3 F Pulse Rate 64 54 L 58 L Respiratory Rate 14 Blood Pressure 155/67 H Pulse Oximetry 100 05/06/18 00:14 05/06/18 01:00 05/06/18 02:00 Temperature Pulse Rate 70 61 65 Respiratory Rate Blood Pressure Pulse Oximetry 05/06/18 03:00 05/06/18 05:11 05/06/18 06:00 Temperature 98.0 F Pulse Rate 59 L 55 L 56 L Respiratory Rate 14 Blood Pressure 124/58 L Pulse Oximetry 97 05/06/18 07:00 05/06/18 08:00 05/06/18 09:00 Temperature 97.9 F Pulse Rate 55 L 64 65 Respiratory Rate 17 Blood Pressure 160/70 H Pulse Oximetry 96 05/06/18 10:00 Temperature Pulse Rate 56 L Respiratory Rate Blood Pressure Pulse Oximetry GENERAL: A&O x 3 , legally blind SKIN: Warm and dry. HEAD: Normocephalic. EYES: No scleral icterus. No injection or drainage. NECK: Supple, trachea midline. No JVD or lymphadenopathy. CARDIOVASCULAR: irregular rate and rhythm 3/6 SM, no gallops, or rubs. RESPIRATORY: Breath sounds equal bilaterally. No accessory muscle use. GASTROINTESTINAL: Abdomen soft, non-tender, nondistended. MUSCULOSKELETAL: No cyanosis, or edema. BACK: Nontender without obvious deformity. No CVA tenderness. Result Diagrams: 05/05/18 03:59 05/05/18 03:59 - Plan (1) Atrial fibrillation Plan: for left atrial appendage excision (4) Coronary artery disease Plan: for surgery on Friday ASA, CCB
--- NOTE | 2018-05-06 11:40 | XR ---
EXAM DATE: 05/06/2018 12:00 AM EDT AGE/SEX: 87 years / Male INDICATIONS: Evaluate for pneumonia, pneumothorax, or communicable disease. Pre op cardiac surgery CLINICAL DATA: This is the patient's subsequent encounter. Patient reports that signs and symptoms h ave been present for 2 days and indicates a pain score of 0/10. MEDICAL/SURGICAL HISTORY: . A Fib. Angina. Aortic stenosis. Prostate cancer. Hiatal hernia. Sic k sinus syndrome. None. COMPARISON: [facility] – [place], CT CHEST TRANSAORTIC VALVE REP, 05/04/2018. . FINDINGS: Mild linear parenchymal opacities at the lung bases with mild diffuse interstitial prominence. The ca rdiomediastinal contours are unremarkable. Osseous structures are intact. CONCLUSION: 1. Senescent changes with mild atelectasis/scarring at the lung bases. Electronically signed by: Osmany Martinez MD 05/06/2018 11:39 AM EDT
[2018-05-06] MEDS: Latanoprost 0.005% Opth Drops 2.5 ML Bottle EACH EYE SCH (20:46)
[2018-05-07 05:34] LABS: Prothrombin Time 10.3 sec (9.8-11.6)
[2018-05-07] MEDS: Dorzolamide-Timolol 2/0.5% Opth Drops 10 ML Bottle EACH EYE SCH ×2 (08:07→21:11)
[2018-05-07] MEDS: Docusate Sodium 100 MG Capsule PO SCH ×2 (08:07→21:11)
[2018-05-07] MEDS: dilTIAZem CD 120 MG Capsule PO SCH (08:07)
[2018-05-07] MEDS: Sod Chloride 0.9% Inj 1,000 ML IV.CONT SCH (08:07)
--- NOTE | 2018-05-07 12:40 | P.PNCV ---
- Note Subjective/Hospital Course: 87/ male history of aortic stenosis, presented to Dr. Nunn's office for a transcatheter aortic valve consultation. His aortic valve area is now 0.7 cm with a mean gradient of 48 mmHg. He has been somewhat sedentary, but is still able to do some housework and yard work. He underwent cardiac catheterization today for further evaluation, which showed a 90% distal stenosis in the left main coronary artery at the bifurcation of the LAD and the left circumflex artery. 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 The mid coronary artery had 75% calcific stenosis. Right-sided heart catheterization, showed a right atrial pressure of 7 mmHg, pulmonary artery pressure of 28/8, a wedge pressure of 9, cardiac output of 3.9 with an index of 2.2. We were consulted to evaluate for possible aortic valve replacement in combination with coronary artery bypass grafting versus transcatheter aortic valve replacement and high-risk PCI with Impella ventricular assist device placement. PAST MEDICAL HISTORY: chronic atrial fibrillation, history of abdominal aortic aneurysm without rupture, aortic stenosis, cervical radiculopathy, history of CVA in the past, hypertension and hyperlipidemia. He is legally blind. He has some central vision. Coumadin therapy, osteoarthritis, history of prostate cancer treated with resection 11 years ago, history of sick sinus syndrome. 05/05 pt now at bedside, further discussion with pt and and Dr Nunn in regards to treatment options Dr Tran will discuss final plans with and pt this afternoon 05/06 pt and agreeable for surgery on Friday venous mapping : nonvisualization of greater saphenous throughout the right calf , nonvisualization of greater saphenous in the mid and distal portions of left calf CT chest aneurysmal dilatation of infrarenal abdominal aorta 4.4x4.4cm 1.6 cm focal infiltrate vs mass peripheral right upper lung 05/07 pt denies any chest pain or SOB stable for surgery in am Objective: Vital Signs - 24 hr 05/06/18 13:00 05/06/18 14:00 05/06/18 15:00 Temperature 98.6 F Pulse Rate 72 62 60 Respiratory Rate 18 Blood Pressure 128/61 Pulse Oximetry 98 05/06/18 15:59 05/06/18 17:00 05/06/18 18:00 Temperature Pulse Rate 55 L 66 61 Respiratory Rate Blood Pressure Pulse Oximetry 05/06/18 19:00 10/24/18 20:00 05/06/18 21:00 Temperature 98.3 F Pulse Rate 69 62 70 Respiratory Rate 16 Blood Pressure 124/58 L Pulse Oximetry 98 05/06/18 22:00 05/06/18 23:00 05/07/18 00:00 Temperature 98.7 F Pulse Rate 56 L 58 L 58 L Respiratory Rate 16 Blood Pressure 169/72 H Pulse Oximetry 97 05/07/18 01:00 05/07/18 02:00 05/07/18 03:00 Temperature 98.4 F Pulse Rate 54 L 54 L 63 Respiratory Rate 16 Blood Pressure 144/66 H Pulse Oximetry 98 05/07/18 04:00 05/07/18 05:00 05/07/18 06:00 Temperature Pulse Rate 50 L 56 L 59 L Respiratory Rate Blood Pressure Pulse Oximetry 05/07/18 07:00 05/07/18 08:00 05/07/18 09:00 Temperature 98.1 F Pulse Rate 56 L 54 L 60 Respiratory Rate 18 Blood Pressure 104/53 L Pulse Oximetry 97 05/07/18 10:00 05/07/18 11:00 05/07/18 12:00 Temperature 98.1 F Pulse Rate 53 L 51 L 61 Respiratory Rate 18 Blood Pressure 126/60 Pulse Oximetry 97 GENERAL: A&O x 3 SKIN: Warm and dry. HEAD: Normocephalic. EYES: No scleral icterus. No injection or drainage. NECK: Supple, trachea midline. No JVD or lymphadenopathy. CARDIOVASCULAR: irregular rate and rhythm without murmurs, gallops, or rubs. RESPIRATORY: Breath sounds equal bilaterally. No accessory muscle use. GASTROINTESTINAL: Abdomen soft, non-tender, nondistended. MUSCULOSKELETAL: No cyanosis, or edema. BACK: Nontender without obvious deformity. No CVA tenderness. Labs: Laboratory Results - last 12 hr 05/07/18 05/07/18 04:35 Unknown PT 10.3 INR 1.0 MTS Gel Crossmatch See Detail Result Diagrams: 05/05/18 03:59 05/05/18 03:59 - Plan (1) Atrial fibrillation Plan: for left atrial appendage excision resume eliquis before discharge (4) Coronary artery disease Plan: for surgery on Friday ASA, CCB
[2018-05-07] MEDS: Latanoprost 0.005% Opth Drops 2.5 ML Bottle EACH EYE SCH (21:11)
[2018-05-08] MEDS: Metoprolol Tartrate 25 MG Tablet PO SCH (05:21)
[2018-05-08] MEDS ORDERED: ceFAZolin 2 GM Premix Inj 2 GM/50 ML PIGGYBACK IV.SIG ONE (06:49)
[2018-05-08] MEDS ORDERED: Heparin - SQ 10,000 UNITS/ML Vial ONE ×2 (06:49→06:50)
[2018-05-08] MEDS ORDERED: CUST1000P IRRIGATION ONE (07:16)
[2018-05-08] MEDS ORDERED: Potassium Chlor 40 mEq Premix 40 MEQ/100 ML PIGGYBACK ONE (07:17)
[2018-05-08] MEDS ORDERED: Calcium Chloride Inj 1 GM/10 ML Syringe ONE (07:18)
[2018-05-08] MEDS ORDERED: Heparin 10,000 UNITS/10 ML Vial (for IV use) ONE (07:18)
[2018-05-08] MEDS ORDERED: Albumin Human 25% Inj 0 ML IV.SIG ONE (07:19)
--- NOTE | 2018-05-08 09:39 | P.CONVS ---
History of Present Illness Service: Vascular surgery Consult date: 05/08/18 Primary Care Provider: No Primary Care Physician Chief Complaint: Right groin hematoma History of Present Illness: 87-year-old male with a past medical history of aortic stenosis who recently underwent right heart catheterization. The patient subsequently developed a right groin hematoma. He reports mild pain in the right groin. His pain is exacerbated by pushing on the hematoma. He denies any right lower extremity wrist pain or claudication. He currently denies any chest pain or shortness of breath. PENDING SALE TO [facility] - History History Provided By: Patient - Medical History Medical History: Medical History (Last Updated 05/04/18 @ 07:24 by Adrianne Dodge RN) AAA (abdominal aortic aneurysm) Afib Angina pectoris Aortic stenosis Arthritis Blind in both eyes HLD (hyperlipidemia) HTN (hypertension) Hiatal hernia Prostate CA SSS (sick sinus syndrome) - Tobacco History Second Hand Smoke Exposure: No Tobacco Use In Past 30 Days: No Smoking Status: Former smoker - Alcohol History How Often Do You Have a Drink Containing Alcohol: Monthly or less - Immunization History Hx Influenza Vaccine This Season: Yes Medications and Allergies Active Medications: Active Medications Al Hydroxide/Mg Hydroxide (Milk Of [place]) 30 ml PO DAILY PRN PRN Reason: constipation Aspirin (Ecotrin) 81 mg PO DAILY [facility] Last Admin: 05/07/18 08:07 Dose: 81 mg Chlorhexidine Gluconate (Hibiclens 4% Topical) 1 applicatio TOPICAL TOPPIECE CUTTER [facility] Stop: 05/11/18 15:43 Sodium Chloride 77.5 ml/Papaverine HCl 60 mg/Nitroglycerin 100 mcg/Diltiazem HCl 100 mg 0 ml IRRIGATION TOPPIECE CUTTER [facility] Stop: 05/11/18 15:43 Sodium Chloride 500 ml/ (Cefazolin Sodium 500 mg) 0 ml IRRIGATION TOPPIECE CUTTER [facility] Stop: 05/11/18 15:43 Dextrose (D50w Vial) 50 ml IV.PUSH UNSCH PRN PRN Reason: PER HYPOGLYCEMIA PROTOCOL Diltiazem HCl (Cardizem Cd 24hr) 120 mg PO DAILY [facility] Last Admin: 05/07/18 08:07 Dose: 120 mg Docusate Sodium (Colace) 100 mg PO BID [facility] Last Admin: 05/07/18 21:11 Dose: 100 mg Dorzolamide/Timolol (Cosopt 2/0.5% Opth Drops) 1 drop EACH EYE BID [facility] Last Admin: 10/25/18 21:11 Dose: 1 drop Sodium Chloride (Ns Inj) 1,000 mls @ 30 mls/hr IV.CONT .Q24H [facility] Last Admin: 05/07/18 08:07 Dose: Not Given Cefazolin Sodium 2,000 mg/ (Sodium Chloride) 100 mls @ 200 mls/hr IV.SIG TOPPIECE CUTTER [facility] Stop: 05/11/18 15:43 Insulin Human Regular 100 unit (/ Sodium Chloride) 100 mls @ 3 mls/hr IV.CONT TITRATE PRN; Protocol PRN Reason: See Protocol Latanoprost (Xalatan 0.005% Opth Drops) 1 drop EACH EYE [facility] Last Admin: 05/07/18 21:11 Dose: 1 drop Metoclopramide HCl (Reglan Inj) 10 mg IV.PUSH Q4H PRN; Protocol PRN Reason: NAUSEA Metoprolol Tartrate (Lopressor) 12.5 mg PO TOPPIECE CUTTER [facility] Stop: 05/11/18 15:43 Last Admin: 05/08/18 05:21 Dose: 12.5 mg Oxycodone/Acetaminophen (Percocet 5/325 Mg) 1 tab PO Q4H PRN PRN Reason: PAIN SCALE 1 TO 4 Last Admin: 05/07/18 19:41 Dose: 1 tab Polyethylene Glycol (Miralax) 17 gm PO DAILY PRN PRN Reason: Constipation Pravastatin Sodium (Pravachol) 40 mg PO [facility] Last Admin: 05/07/18 21:11 Dose: 40 mg Sodium Chloride (Ns Flush) 2 ml IV.FLUSH BID [facility] Last Admin: 05/07/18 21:14 Dose: 2 ml Sodium Chloride (Ns Flush) 2 ml IV.FLUSH PRN PRN PRN Reason: FLUSH AFTER USING IV ACCESS Tramadol HCl (Ultram) 50 mg PO Q6H PRN PRN Reason: Pain 1-10 Allergies Allergy/AdvReac Type Severity Reaction Status Date / Time No Known Allergies Allergy Verified 05/04/18 07:24 Home Medications Medication Instructions Recorded Confirmed Type aspirin [Aspirin Low Dose] 81 mg PO DAILY 05/04/18 05/04/18 History diltiazem HCl 120 mg PO DAILY 05/04/18 05/04/18 History dorzolamide-timolol 1 drp OPHTHALMIC (EYE) BID 05/04/18 05/04/18 History latanoprost 1 drp OPHTHALMIC (EYE) QPM 05/04/18 05/04/18 History lisinopril 10 mg PO DAILY 05/04/18 05/04/18 History lovastatin 40 mg PO DAILY 05/04/18 05/04/18 History polyethylene glycol 3350 17 g PO DAILY PRN 05/04/18 05/04/18 History tramadol 50 mg PO Q6H PRN 05/04/18 05/04/18 History Physical Exam Vital Signs / I&O: Vital Signs 05/07/18 10:00 05/07/18 11:00 05/07/18 12:00 Temperature 98.1 F Pulse Rate 53 L 51 L 61 Respiratory Rate 18 Blood Pressure 126/60 Pulse Oximetry 97 05/07/18 13:00 05/07/18 14:00 05/07/18 15:00 Temperature 98.2 F Pulse Rate 52 L 55 L 61 Respiratory Rate 18 Blood Pressure 143/64 H Pulse Oximetry 98 05/07/18 16:00 05/07/18 17:00 05/07/18 18:00 Temperature Pulse Rate 52 L 66 58 L Respiratory Rate Blood Pressure Pulse Oximetry 05/07/18 19:00 05/07/18 20:00 05/07/18 21:00 Temperature 97.7 F Pulse Rate 50 L 54 L 52 L Respiratory Rate 20 Blood Pressure 138/65 Pulse Oximetry 97 05/07/18 21:10 05/07/18 22:00 05/07/18 23:00 Temperature 98.4 F Pulse Rate 60 60 Respiratory Rate 18 20 Blood Pressure 149/57 H Pulse Oximetry 96 05/08/18 00:00 05/08/18 01:00 05/08/18 02:00 Temperature Pulse Rate 52 L 54 L 53 L Respiratory Rate Blood Pressure Pulse Oximetry 05/08/18 03:00 05/08/18 04:00 05/08/18 05:00 Temperature 98.2 F Pulse Rate 50 L 52 L 65 Respiratory Rate 20 Blood Pressure 124/56 L Pulse Oximetry 98 05/08/18 06:00 05/08/18 07:00 Temperature 98 F Pulse Rate 52 L 59 L Respiratory Rate 16 Blood Pressure 131/86 Pulse Oximetry 97 Intake & Output 05/07/18 05/08/18 05/08/18 18:59 06:59 18:59 Intake Total 500 / 500 Output Total 600 / 600 325 / 325 Balance -100 / -100 -325 / -325 Weight 73 kg Intake: Oral 500 / 500 Output: Urine 600 / 600 325 / 325 Other: Date of Last Bowel Movement 05/07/18 05/07/18 05/07/18 # Bowel Movements 1 Neuro: Alert awake oriented x3 HEENT: Bilateral blindness Neck: Supple Heart: S1-S2 Lungs: Clear bilaterally Abdomen: Soft nontender nondistended Vascular: Right groin with a pulsatile mass with surrounding ecchymosis. There is no skin ischemia. Multiphasic dorsalis pedis, posterior tibial signals bilaterally. Laboratory Results - last 24 hr 05/07/18 05/07/18 05/07/18 00:30 11:00 20:00 Hgb 11.8 L Nasal Screen MRSA (PCR) Not detected Blood Type A Positive Antibody Screen Negative MTS Gel Crossmatch See Detail 05/07/18 Unknown Hgb Nasal Screen MRSA (PCR) Blood Type Antibody Screen MTS Gel Crossmatch See Detail Impressions Chest X-Ray 05/06/18 00:00 CONCLUSION: 1. Senescent changes with mild atelectasis/scarring at the lung bases. Assessment and Plan - Assessment (1) Groin hematoma Code(s): S30.1XXA - Contusion of abdominal wall, initial encounter Status: Acute - Plan No acute limb ischemia or skin ischemia. We will obtain Doppler ultrasound to rule out pseudoaneurysm. Thank you for allowing us to participate in this patient care Tacos Chahal MD [phone]
[2018-05-08] MEDS: Dorzolamide-Timolol 2/0.5% Opth Drops 10 ML Bottle EACH EYE SCH ×2 (11:05→21:10)
[2018-05-08] MEDS: dilTIAZem CD 120 MG Capsule PO SCH (11:07)
[2018-05-08] MEDS: Docusate Sodium 100 MG Capsule PO SCH ×2 (11:07→21:10)
--- NOTE | 2018-05-08 11:16 | US ---
EXAM DATE: 05/08/2018 10:51 AM EDT AGE/SEX: 87 years / Male INDICATIONS: Status post cardiac catheterization 05/04/2018; Right groin swelling and bruising. CLINICAL DATA: This is the patient's initial encounter. Patient reports that signs and symptoms have been present for 4 - 6 days and indicates a pain score of 1/10. MEDICAL/SURGICAL HISTORY: . AAA. Afib. Angina pectoris. Aortic stenosis. Arthritis. Blindn ess. Hiatal hernia. HLD. HTN. Prostate cancer. Sick sinus syndrome. . Cardiac catheterization. Cataract. Colonoscopy. EGD. Bilateral knee replacement. Prostatectomy. Tonsillectomy. COMPARISON: [facility] [place], US VENOUS MAPPING LEG BI, 05/05/2018. . TECHNIQUE: Dominguez-scale and color Doppler imaging of the inguinal region was performed. FINDINGS: Vascular: The arteries and veins in the inguinal region demonstrate no acute abnormality. There is no aneurysm, pseudoaneurysm, or thrombosis. Small hematoma measuring about 2 cm in diameter. Other: 2 cm hematoma is present. The visualized surrounding structures demonstrate no abnormality. CONCLUSION: 1. Negative for pseudoaneurysm. Small hematoma adjacent to the common femoral vein measuring about 2 cm in diameter. Electronically signed by: Gene Mata MD 05/08/2018 11:15 AM EDT
[2018-05-08] MEDS ORDERED: fentaNYL Citrate Inj 250 MCG/5 ML Ampul ONE (11:32)
--- NOTE | 2018-05-08 13:31 | P.PNCV ---
- Note Subjective/Hospital Course: 87/ male history of aortic stenosis, presented to Dr. Nunn's office for a transcatheter aortic valve consultation. His aortic valve area is now 0.7 cm with a mean gradient of 48 mmHg. He has been somewhat sedentary, but is still able to do some housework and yard work. He underwent cardiac catheterization today for further evaluation, which showed a 90% distal stenosis in the left main coronary artery at the bifurcation of the LAD and the left circumflex artery. 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 The mid coronary artery had 75% calcific stenosis. Right-sided heart catheterization, showed a right atrial pressure of 7 mmHg, pulmonary artery pressure of 28/8, a wedge pressure of 9, cardiac output of 3.9 with an index of 2.2. We were consulted to evaluate for possible aortic valve replacement in combination with coronary artery bypass grafting versus transcatheter aortic valve replacement and high-risk PCI with Impella ventricular assist device placement. PAST MEDICAL HISTORY: chronic atrial fibrillation, history of abdominal aortic aneurysm without rupture, aortic stenosis, cervical radiculopathy, history of CVA in the past, hypertension and hyperlipidemia. He is legally blind. He has some central vision. Coumadin therapy, osteoarthritis, history of prostate cancer treated with resection 11 years ago, history of sick sinus syndrome. 05/05 pt now at bedside, further discussion with pt and and Dr Nunn in regards to treatment options Dr Tran will discuss final plans with and pt this afternoon 05/06 pt and agreeable for surgery on Friday venous mapping : nonvisualization of greater saphenous throughout the right calf , nonvisualization of greater saphenous in the mid and distal portions of left calf CT chest aneurysmal dilatation of infrarenal abdominal aorta 4.4x4.4cm 1.6 cm focal infiltrate vs mass peripheral right upper lung 05/07 pt denies any chest pain or SOB stable for surgery in am 05/08 OR cancelled today 2/2 hematoma right groin appreciate vascular input Lower ext ultrasound : CONCLUSION: 1. Negative for pseudoaneurysm. Small hematoma adjacent to the common femoral vein measuring about 2 cm in diameter. rescheduled for Friday spoke with pt and no limb ischemia Objective: Vital Signs - 24 hr 05/07/18 14:00 05/07/18 15:00 05/07/18 16:00 Temperature 98.2 F Pulse Rate 55 L 61 52 L Respiratory Rate 18 Blood Pressure 143/64 H Pulse Oximetry 98 05/07/18 17:00 05/07/18 18:00 05/07/18 19:00 Temperature 97.7 F Pulse Rate 66 58 L 50 L Respiratory Rate 20 Blood Pressure 138/65 Pulse Oximetry 97 05/07/18 20:00 05/07/18 21:00 05/07/18 21:10 Temperature Pulse Rate 54 L 52 L Respiratory Rate 18 Blood Pressure Pulse Oximetry 05/07/18 22:00 05/07/18 23:00 05/08/18 00:00 Temperature 98.4 F Pulse Rate 60 60 52 L Respiratory Rate 20 Blood Pressure 149/57 H Pulse Oximetry 96 05/08/18 01:00 05/08/18 02:00 05/08/18 03:00 Temperature 98.2 F Pulse Rate 54 L 53 L 50 L Respiratory Rate 20 Blood Pressure 124/56 L Pulse Oximetry 98 05/08/18 04:00 05/08/18 05:00 05/08/18 06:00 Temperature Pulse Rate 52 L 65 52 L Respiratory Rate Blood Pressure Pulse Oximetry 05/08/18 07:00 05/08/18 08:00 05/08/18 09:00 Temperature 98 F Pulse Rate 59 L 58 L 56 L Respiratory Rate 16 Blood Pressure 131/86 Pulse Oximetry 97 05/08/18 10:00 Temperature Pulse Rate 58 L Respiratory Rate Blood Pressure Pulse Oximetry GENERAL: A&O x 3 SKIN: Warm and dry. right groin , ecchymosis with small hematoma / good distal pulses, no pulsatile mass HEAD: Normocephalic. EYES: No scleral icterus. No injection or drainage. NECK: Supple, trachea midline. No JVD or lymphadenopathy. CARDIOVASCULAR: Regular rate and rhythm without murmurs, gallops, or rubs. RESPIRATORY: Breath sounds equal bilaterally. No accessory muscle use. GASTROINTESTINAL: Abdomen soft, non-tender, nondistended. MUSCULOSKELETAL: No cyanosis, or edema. BACK: Nontender without obvious deformity. No CVA tenderness. Labs: Laboratory Results - last 12 hr 05/07/18 05/07/18 00:30 Unknown Blood Type A Positive Antibody Screen Negative MTS Gel Crossmatch See Detail See Detail Result Diagrams: 05/07/18 20:00 05/05/18 03:59 - Plan (1) Atrial fibrillation Plan: for left atrial appendage excision resume eliquis before discharge (4) Coronary artery disease Plan: for surgery on Friday cnacelled today 2/2 hematoma right groin US no pseudoaneurysm superficial hematoma ASA, CCB
[2018-05-08] MEDS: Latanoprost 0.005% Opth Drops 2.5 ML Bottle EACH EYE SCH (21:10)
--- NOTE | 2018-05-09 08:34 | P.PNVS ---
Subjective Subjective/Hospital Course: Pt feels well - no R groin pain does c/o knee pain which is chronic Objective Vital Signs / I&O: Vital Signs 05/08/18 09:00 05/08/18 10:00 05/08/18 11:00 Temperature 98.2 F Pulse Rate 56 L 58 L 65 Respiratory Rate 16 Blood Pressure 164/69 H Pulse Oximetry 97 05/08/18 12:00 05/08/18 13:00 05/08/18 14:00 Temperature Pulse Rate 66 58 L 54 L Respiratory Rate Blood Pressure Pulse Oximetry 05/08/18 15:00 05/08/18 16:00 05/08/18 17:00 Temperature 98.3 F Pulse Rate 68 55 L 60 Respiratory Rate 16 Blood Pressure 122/56 L Pulse Oximetry 98 05/08/18 18:00 05/08/18 19:00 05/08/18 20:00 Temperature 97.8 F Pulse Rate 55 L 61 66 Respiratory Rate 20 Blood Pressure 147/64 H Pulse Oximetry 99 05/08/18 21:00 05/08/18 22:00 05/08/18 23:00 Temperature 98.9 F Pulse Rate 56 L 54 L 50 L Respiratory Rate 20 Blood Pressure 145/67 H Pulse Oximetry 98 05/09/18 00:00 05/09/18 01:00 05/09/18 02:00 Temperature Pulse Rate 54 L 54 L 54 L Respiratory Rate Blood Pressure Pulse Oximetry 05/09/18 03:00 05/09/18 04:00 05/09/18 05:00 Temperature 97.9 F Pulse Rate 55 L 59 L 50 L Respiratory Rate 20 Blood Pressure 149/70 H Pulse Oximetry 98 05/09/18 06:00 Temperature Pulse Rate 65 Respiratory Rate Blood Pressure Pulse Oximetry Intake & Output 05/08/18 05/09/18 05/09/18 18:59 06:59 18:59 Intake Total 800 / 800 Output Total 400 / 400 700 / 700 Balance 400 / 400 -700 / -700 Weight 69 kg Intake: Oral 800 / 800 Output: Urine 400 / 400 700 / 700 Other: Date of Last Bowel Movement 05/07/18 # Bowel Movements 0 Physical Exam: R groin ecchymotic but soft skin without compromise Impressions Lower Extremity Ultrasound 05/08/18 00:00 CONCLUSION: 1. Negative for pseudoaneurysm. Small hematoma adjacent to the common femoral vein measuring about 2 cm in diameter. Assessment and Plan - Assessment (1) Groin hematoma Code(s): S30.1XXA - Contusion of abdominal wall, initial encounter Status: Acute - Plan hematoma without vascular compromise clear for AVR with Dr. Tran please call if needed
--- NOTE | 2018-05-09 08:35 | P.PNCV ---
- Note Subjective/Hospital Course: 87/ male history of aortic stenosis, presented to Dr. Nunn's office for a transcatheter aortic valve consultation. His aortic valve area is now 0.7 cm with a mean gradient of 48 mmHg. He has been somewhat sedentary, but is still able to do some housework and yard work. He underwent cardiac catheterization today for further evaluation, which showed a 90% distal stenosis in the left main coronary artery at the bifurcation of the LAD and the left circumflex artery. 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 The mid coronary artery had 75% calcific stenosis. Right-sided heart catheterization, showed a right atrial pressure of 7 mmHg, pulmonary artery pressure of 28/8, a wedge pressure of 9, cardiac output of 3.9 with an index of 2.2. We were consulted to evaluate for possible aortic valve replacement in combination with coronary artery bypass grafting versus transcatheter aortic valve replacement and high-risk PCI with Impella ventricular assist device placement. PAST MEDICAL HISTORY: chronic atrial fibrillation, history of abdominal aortic aneurysm without rupture, aortic stenosis, cervical radiculopathy, history of CVA in the past, hypertension and hyperlipidemia. He is legally blind. He has some central vision. Coumadin therapy, osteoarthritis, history of prostate cancer treated with resection 11 years ago, history of sick sinus syndrome. 05/05 pt now at bedside, further discussion with pt and and Dr Nunn in regards to treatment options Dr Tran will discuss final plans with and pt this afternoon 05/06 pt and agreeable for surgery on Friday venous mapping : nonvisualization of greater saphenous throughout the right calf , nonvisualization of greater saphenous in the mid and distal portions of left calf CT chest aneurysmal dilatation of infrarenal abdominal aorta 4.4x4.4cm 1.6 cm focal infiltrate vs mass peripheral right upper lung 05/07 pt denies any chest pain or SOB stable for surgery in am 05/08 OR cancelled today 2/2 hematoma right groin appreciate vascular input Lower ext ultrasound : CONCLUSION: 1. Negative for pseudoaneurysm. Small hematoma adjacent to the common femoral vein measuring about 2 cm in diameter. rescheduled for Friday spoke with pt and no limb ischemia 05/09 Clinically and hemodynamically stable Ultrasound reviewed Greatly appreciate Dr. Bliss's input Plan OR Friday morning Objective: Vital Signs - 24 hr 05/08/18 09:00 05/08/18 10:00 05/08/18 11:00 Temperature 98.2 F Pulse Rate 56 L 58 L 65 Respiratory Rate 16 Blood Pressure 164/69 H Pulse Oximetry 97 05/08/18 12:00 05/08/18 13:00 05/08/18 14:00 Temperature Pulse Rate 66 58 L 54 L Respiratory Rate Blood Pressure Pulse Oximetry 05/08/18 15:00 05/08/18 16:00 05/08/18 17:00 Temperature 98.3 F Pulse Rate 68 55 L 60 Respiratory Rate 16 Blood Pressure 122/56 L Pulse Oximetry 98 05/08/18 18:00 05/08/18 19:00 05/08/18 20:00 Temperature 97.8 F Pulse Rate 55 L 61 66 Respiratory Rate 20 Blood Pressure 147/64 H Pulse Oximetry 99 05/08/18 21:00 05/08/18 22:00 05/08/18 23:00 Temperature 98.9 F Pulse Rate 56 L 54 L 50 L Respiratory Rate 20 Blood Pressure 145/67 H Pulse Oximetry 98 05/09/18 00:00 05/09/18 01:00 05/09/18 02:00 Temperature Pulse Rate 54 L 54 L 54 L Respiratory Rate Blood Pressure Pulse Oximetry 05/09/18 03:00 05/09/18 04:00 05/09/18 05:00 Temperature 97.9 F Pulse Rate 55 L 59 L 50 L Respiratory Rate 20 Blood Pressure 149/70 H Pulse Oximetry 98 05/09/18 06:00 Temperature Pulse Rate 65 Respiratory Rate Blood Pressure Pulse Oximetry Result Diagrams: 05/07/18 20:00 05/05/18 03:59 - Plan (1) Atrial fibrillation Plan: for left atrial appendage excision resume eliquis before discharge (4) Coronary artery disease Plan: for surgery on Friday cnacelled today 2/2 hematoma right groin US no pseudoaneurysm superficial hematoma ASA, CCB
[2018-05-09] MEDS: Dorzolamide-Timolol 2/0.5% Opth Drops 10 ML Bottle EACH EYE SCH ×2 (09:11→20:39)
[2018-05-09] MEDS: Docusate Sodium 100 MG Capsule PO SCH ×2 (09:12→20:39)
[2018-05-09] MEDS: dilTIAZem CD 120 MG Capsule PO SCH (11:23)
[2018-05-10 04:30] LABS: Baso # (Auto) 0.1 th/mm3 (0.0-0.2); Baso % (Auto) 0.9 % (0.0-2.0); Eos # (Auto) 0.3 th/mm3 (0.0-0.4); Eos % (Auto) 2.6 % (0.0-4.0); Hematocrit 36.1 % (39.0-51.0); Hemoglobin 12.4 gm/dL (13.0-17.0); Lymph # (Auto) 2.4 th/mm3 (1.0-4.8); Lymph % (Auto) 21.5 % (9.0-44.0); Mean Corpuscular HGB Conc 34.2 % (32.0-36.0); Mean Corpuscular Hemoglobin 31.2 pg (27.0-34.0); Mean Platelet Volume 7.8 fL (7.0-11.0); Mono # (Auto) 1.2 th/mm3 (0.0-0.9); Mono % (Auto) 10.8 % (0.0-8.0); Neut % (Auto) 64.2 % (16.0-70.0); Platelet Count 154 th/mm3 (150-450); Red Blood Count 3.96 mil/mm3 (4.50-5.90); Red Cell Distribution Width 13.8 % (11.6-17.2)
[2018-05-10 04:58] LABS: Anion Gap 8 meq/L (5-15); Blood Urea Nitrogen 16 mg/dL (7-18); Calcium 8.5 mg/dL (8.5-10.1); Carbon Dioxide 25.5 meq/L (21.0-32.0); Chloride 109 meq/L (98-107); Glomerular Filtration Rate Greater Than 89 mL/min (>89); Glucose,Random 96 mg/dL (74-106); Potassium 4.2 meq/L (3.5-5.1); Sodium 142 meq/L (136-145)
[2018-05-10] MEDS: Latanoprost 0.005% Opth Drops 2.5 ML Bottle EACH EYE SCH ×3 (05:49→22:13)
--- NOTE | 2018-05-10 08:42 | P.PNVS ---
Subjective Subjective/Hospital Course: Pt feels well - no R groin pain sitting in bed, pati diet Objective Vital Signs / I&O: Vital Signs 05/09/18 09:00 05/09/18 10:00 05/09/18 11:00 Temperature Pulse Rate 59 L 55 L 60 Respiratory Rate Blood Pressure Pulse Oximetry 05/09/18 12:00 05/09/18 12:32 05/09/18 13:00 Temperature 98.0 F Pulse Rate 68 62 62 Respiratory Rate 18 Blood Pressure 139/63 Pulse Oximetry 99 05/09/18 14:00 05/09/18 15:00 05/09/18 15:39 Temperature 98.0 F Pulse Rate 60 53 L 57 L Respiratory Rate 18 Blood Pressure 125/60 Pulse Oximetry 96 05/09/18 16:00 05/09/18 17:00 05/09/18 18:00 Temperature Pulse Rate 59 L 48 L 54 L Respiratory Rate Blood Pressure Pulse Oximetry 05/09/18 19:00 05/09/18 20:00 05/09/18 21:00 Temperature 98 F Pulse Rate 60 62 72 Respiratory Rate 20 Blood Pressure 133/60 Pulse Oximetry 98 05/09/18 22:00 05/09/18 23:00 05/10/18 00:00 Temperature 98.6 F Pulse Rate 54 L 50 L 52 L Respiratory Rate 18 Blood Pressure 117/56 L Pulse Oximetry 97 05/10/18 01:00 05/10/18 02:00 05/10/18 03:00 Temperature 98.4 F Pulse Rate 48 L 53 L 52 L Respiratory Rate 18 Blood Pressure 141/63 H Pulse Oximetry 97 05/10/18 04:00 05/10/18 05:00 05/10/18 06:00 Temperature Pulse Rate 51 L 54 L 50 L Respiratory Rate Blood Pressure Pulse Oximetry 05/10/18 07:00 05/10/18 08:00 Temperature 98.6 F Pulse Rate 55 L 56 L Respiratory Rate 18 Blood Pressure 129/59 L Pulse Oximetry 96 Intake & Output 05/09/18 05/10/18 05/10/18 18:59 06:59 18:59 Intake Total 720 / 720 240 / 240 Output Total 725 / 725 250 / 250 Balance -5 / -5 -10 / -10 Weight 70 kg Intake: Oral 720 / 720 240 / 240 Output: Urine 725 / 725 250 / 250 Other: # Voids 2 Date of Last Bowel Movement 05/07/18 05/09/18 05/09/18 Physical Exam: R groin ecchymotic but skin not tense stable from yesterday Laboratory Results - last 24 hr 05/07/18 05/09/18 05/10/18 00:30 23:18 04:23 WBC 11.0 RBC 3.96 L Hgb 12.4 L Hct 36.1 L MCV 91.0 MCH 31.2 MCHC 34.2 RDW 13.8 Plt Count 154 MPV 7.8 Neut % (Auto) 64.2 Lymph % (Auto) 21.5 [place] % (Auto) 10.8 H Eos % (Auto) 2.6 Baso % (Auto) 0.9 Neut # (Auto) 7.0 Lymph # (Auto) 2.4 [place] # (Auto) 1.2 H Eos # (Auto) 0.3 Baso # (Auto) 0.1 WBC Differential . Differential Comment Auto diff final Sodium Potassium Chloride Carbon Dioxide Anion Gap BUN Creatinine Estimated GFR Random Glucose Calcium MTS Gel Crossmatch See Detail See Detail 05/10/18 04:23 WBC RBC Hgb Hct MCV MCH MCHC RDW Plt Count MPV Neut % (Auto) Lymph % (Auto) [place] % (Auto) Eos % (Auto) Baso % (Auto) Neut # (Auto) Lymph # (Auto) [place] # (Auto) Eos # (Auto) Baso # (Auto) WBC Differential Differential Comment Sodium 142 Potassium 4.2 Chloride 109 H Carbon Dioxide 25.5 Anion Gap 8 BUN 16 Creatinine 0.78 Estimated GFR Greater than 89 Random Glucose 96 Calcium 8.5 MTS Gel Crossmatch Impressions Lower Extremity Ultrasound 05/08/18 00:00 CONCLUSION: 1. Negative for pseudoaneurysm. Small hematoma adjacent to the common femoral vein measuring about 2 cm in diameter. Assessment and Plan - Assessment (1) Groin hematoma Code(s): S30.1XXA - Contusion of abdominal wall, initial encounter Status: Acute - Plan hematoma without vascular compromise clear for AVR with Dr. Tran please call if needed
[2018-05-10] MEDS: Docusate Sodium 100 MG Capsule PO SCH ×2 (08:49→22:13)
[2018-05-10] MEDS: Dorzolamide-Timolol 2/0.5% Opth Drops 10 ML Bottle EACH EYE SCH ×2 (08:49→22:15)
[2018-05-10] MEDS: dilTIAZem CD 120 MG Capsule PO SCH (08:49)
--- NOTE | 2018-05-10 09:23 | P.PNCV ---
- Note Subjective/Hospital Course: 87/ male history of aortic stenosis, presented to Dr. Nunn's office for a transcatheter aortic valve consultation. His aortic valve area is now 0.7 cm with a mean gradient of 48 mmHg. He has been somewhat sedentary, but is still able to do some housework and yard work. He underwent cardiac catheterization today for further evaluation, which showed a 90% distal stenosis in the left main coronary artery at the bifurcation of the LAD and the left circumflex artery. 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 The mid coronary artery had 75% calcific stenosis. Right-sided heart catheterization, showed a right atrial pressure of 7 mmHg, pulmonary artery pressure of 28/8, a wedge pressure of 9, cardiac output of 3.9 with an index of 2.2. We were consulted to evaluate for possible aortic valve replacement in combination with coronary artery bypass grafting versus transcatheter aortic valve replacement and high-risk PCI with Impella ventricular assist device placement. PAST MEDICAL HISTORY: chronic atrial fibrillation, history of abdominal aortic aneurysm without rupture, aortic stenosis, cervical radiculopathy, history of CVA in the past, hypertension and hyperlipidemia. He is legally blind. He has some central vision. Coumadin therapy, osteoarthritis, history of prostate cancer treated with resection 11 years ago, history of sick sinus syndrome. 05/05 pt now at bedside, further discussion with pt and and Dr Nunn in regards to treatment options Dr Tran will discuss final plans with and pt this afternoon 05/06 pt and agreeable for surgery on Friday venous mapping : nonvisualization of greater saphenous throughout the right calf , nonvisualization of greater saphenous in the mid and distal portions of left calf CT chest aneurysmal dilatation of infrarenal abdominal aorta 4.4x4.4cm 1.6 cm focal infiltrate vs mass peripheral right upper lung 05/07 pt denies any chest pain or SOB stable for surgery in am 05/08 OR cancelled today 2/2 hematoma right groin appreciate vascular input Lower ext ultrasound : CONCLUSION: 1. Negative for pseudoaneurysm. Small hematoma adjacent to the common femoral vein measuring about 2 cm in diameter. rescheduled for Friday spoke with pt and no limb ischemia 05/09 Clinically and hemodynamically stable Ultrasound reviewed Greatly appreciate Dr. Bliss's input Plan OR 05/10 Remains stable OR tomorrow Objective: Vital Signs - 24 hr 05/09/18 10:00 05/09/18 11:00 05/09/18 12:00 Temperature Pulse Rate 55 L 60 68 Respiratory Rate Blood Pressure Pulse Oximetry 05/09/18 12:32 05/09/18 13:00 05/09/18 14:00 Temperature 98.0 F Pulse Rate 62 62 60 Respiratory Rate 18 Blood Pressure 139/63 Pulse Oximetry 99 05/09/18 15:00 05/09/18 15:39 05/09/18 16:00 Temperature 98.0 F Pulse Rate 53 L 57 L 59 L Respiratory Rate 18 Blood Pressure 125/60 Pulse Oximetry 96 05/09/18 17:00 05/09/18 18:00 05/09/18 19:00 Temperature 98 F Pulse Rate 48 L 54 L 60 Respiratory Rate 20 Blood Pressure 133/60 Pulse Oximetry 98 05/09/18 20:00 05/09/18 21:00 05/09/18 22:00 Temperature Pulse Rate 62 72 54 L Respiratory Rate Blood Pressure Pulse Oximetry 05/09/18 23:00 05/10/18 00:00 05/10/18 01:00 Temperature 98.6 F Pulse Rate 50 L 52 L 48 L Respiratory Rate 18 Blood Pressure 117/56 L Pulse Oximetry 97 05/10/18 02:00 05/10/18 03:00 05/10/18 04:00 Temperature 98.4 F Pulse Rate 53 L 52 L 51 L Respiratory Rate 18 Blood Pressure 141/63 H Pulse Oximetry 97 05/10/18 05:00 05/10/18 06:00 05/10/18 07:00 Temperature 98.6 F Pulse Rate 54 L 50 L 55 L Respiratory Rate 18 Blood Pressure 129/59 L Pulse Oximetry 96 05/10/18 08:00 05/10/18 09:00 Temperature Pulse Rate 56 L 58 L Respiratory Rate Blood Pressure Pulse Oximetry Labs: Laboratory Results - last 12 hr 05/07/18 05/09/18 05/10/18 00:30 23:18 04:23 WBC 11.0 RBC 3.96 L Hgb 12.4 L Hct 36.1 L MCV 91.0 MCH 31.2 MCHC 34.2 RDW 13.8 Plt Count 154 MPV 7.8 Neut % (Auto) 64.2 Lymph % (Auto) 21.5 [place] % (Auto) 10.8 H Eos % (Auto) 2.6 Baso % (Auto) 0.9 Neut # (Auto) 7.0 Lymph # (Auto) 2.4 [place] # (Auto) 1.2 H Eos # (Auto) 0.3 Baso # (Auto) 0.1 WBC Differential . Differential Comment Auto diff final Sodium Potassium Chloride Carbon Dioxide Anion Gap BUN Creatinine Estimated GFR Random Glucose Calcium Blood Type MTS Gel Crossmatch See Detail See Detail 05/10/18 05/10/18 04:23 08:00 WBC RBC Hgb Hct MCV MCH MCHC RDW Plt Count MPV Neut % (Auto) Lymph % (Auto) [place] % (Auto) Eos % (Auto) Baso % (Auto) Neut # (Auto) Lymph # (Auto) [place] # (Auto) Eos # (Auto) Baso # (Auto) WBC Differential Differential Comment Sodium 142 Potassium 4.2 Chloride 109 H Carbon Dioxide 25.5 Anion Gap 8 BUN 16 Creatinine 0.78 Estimated GFR Greater than 89 Random Glucose 96 Calcium 8.5 Blood Type A Positive MTS Gel Crossmatch Result Diagrams: 05/10/18 04:23 05/10/18 04:23 - Plan (1) Atrial fibrillation Plan: for left atrial appendage excision resume eliquis before discharge (4) Coronary artery disease Plan: for surgery on Friday cnacelled today 2/2 hematoma right groin US no pseudoaneurysm superficial hematoma ASA, CCB
[2018-05-11] MEDS ORDERED: Sodium Chlor 0.9% Inj 500 ML IV.CONT ONE ×3 (03:30→07:10)
[2018-05-11] MEDS ORDERED: Chlorhexidine Gluconate 2% 1 Pack (2 Cloths) TOPICAL ONE (03:30)
[2018-05-11] MEDS: Metoprolol Tartrate 25 MG Tablet PO SCH (06:16)
[2018-05-11] MEDS ORDERED: Heparin - SQ 10,000 UNITS/ML Vial ONE ×2 (06:35→06:36)
[2018-05-11] MEDS ORDERED: ceFAZolin 2 GM Premix Inj 2 GM/50 ML PIGGYBACK IV.SIG ONE (06:36)
[2018-05-11] MEDS ORDERED: Tranexamic Acid Inj 1,000 MG/10 ML Ampul IV.PUSH ONE (07:10)
[2018-05-11] MEDS ORDERED: Dexmedetomidine Inj 200 MCG/2 ML Vial IV.CONT ONE (07:10)
[2018-05-11] MEDS ORDERED: Normosol-R pH 7.4 Inj 2,000 ML IV.CONT ONE (07:10)
[2018-05-11] MEDS ORDERED: Glycopyrrolate 0.2 MG/ML Vial IV.PUSH ONE (07:10)
[2018-05-11] MEDS ORDERED: Sodium Chlor 0.9% Inj 200 ML IV.CONT ONE (07:10)
[2018-05-11] MEDS ORDERED: Calcium Chloride Inj 1 GM/10 ML Syringe IV.CONT ONE (07:10)
[2018-05-11] MEDS ORDERED: Heparin - SQ 10,000 UNITS/ML Vial OTHER ONE (07:10)
[2018-05-11] MEDS ORDERED: Phenylephrine/NS 1000 MCG/10ML Syringe IV.PUSH ONE (07:10)
[2018-05-11] MEDS ORDERED: CUST1000P IRRIGATION ONE (07:26)
[2018-05-11] MEDS ORDERED: Potassium Chloride Inj 40 MEQ/20 ML Vial ONE (07:26)
[2018-05-11] MEDS ORDERED: Sodium Bicarbonate 8.4% Inj 50 MEQ/50 ML Syringe ONE ×2 (07:27→13:00)
[2018-05-11] MEDS ORDERED: Heparin 10,000 UNITS/10 ML Vial (for IV use) ONE (07:27)
[2018-05-11] MEDS ORDERED: Albumin Human 25% Inj 50 ML IV.SIG ONE (07:28)
[2018-05-11] MEDS: ceFAZolin Inj 2,000 MG in Sodium Chlor 0.9% Inj 80 ML IV.SIG SCH ×4 (08:05→23:55)
--- NOTE | 2018-05-11 10:47 | P.DCO ---
- Diagnosis (1) S/P AVR (aortic valve replacement) Status: Acute (2) S/P CABG (coronary artery bypass graft) Status: Acute - Home Health Nursing Order: Medical education, Signs/symptoms of disease process, Wound care and dressing changes, Nursing assessment with vital signs Instructions: PREVENA Single Use Negative Wound Therapy System Caregiver Instruction Sheet 1. A Prevena dressing system was applied to the chest incision during surgery , to promote wound healing. It works via a suction device (negative pressure wound therapy) to remove low to moderate levels of exudate (drainage) and infectious materials. We recommend that the device stay in place for up to seven days, from day of surgery. 2. Day of Surgery___/ Day of Removal ___/11/28 3. The dressing should only be removed by a health customer care manager. Please arrange removal of device to coincide with Home Health visit and or with Nursing staff at Rehab 4. If skin reddening or irritation of skin occurs, or excessive drainage, please notify the Cardiovascular Surgeons office at [phone]. 5. Light showering is permissible; however the pump should be disconnected and placed in safe location, where it will not get wet. The dressing should not be exposed to direct spray or submerged in water. No bath tub / shower only. Ensure the end of the tubing attached to the dressing is facing down so that water does not enter the top of the tube. 6. To remove Prevena dressing: press purple button to turn off device / remove the suction. Then disconnect the tubing from the pump. The fixation strips should be stretched away from the skin and the dressing lifted at one corner and peeled back until it has been fully removed. 7. After removal, it is ok to shower daily using liquid dial soap and clean wash cloth, rinse and pat dry, and leave incision open to air dry. For any concerns regarding Prevena dressing, and or wounds, please contact aTmar Flores, patient navigator at [phone] or notify the Cardiovascular Surgeons office at [phone]. Incentive spirometry Q1 hr x 10, while awake, also use acapella device hourly whole awake Sternal Breast Bone Precautions: NO pushing or pulling, ( pt must use sternal pillow to support chest with all activities and with coughing ( takes up to 3 months breast bone to heal ) Daily incision care: ok to shower daily, no tub bath. Wash all incisions with liquid dial soap, clean wash cloth to each site, rinse and pat dry. Observe for any signs of infection, such as drainage which is dark yellow, matt, green or foul smelling. Immediately report to the surgeon any drainage from the chest incision, or legs, and for any abnormal drainage from the chest tube sites. Notify surgeon if any temp >101.5 degrees F. When specialty dressing removed/ or if you do not have one, continue to shower daily as above, then rinse and pat incision dry and paint with betadine daily x 5 days. Allow steri strips to fall off if you have any. Avoid lotions, creams, salves, oils, etc. for the first month Please see attached forms for additional instructions regarding post Open Heart specialty wound vacuum dressings. MARTHA or Prevena , Dressing to be removed by Nursing staff on ___05/18/18____ F/U appointment: as per DC instructions: PCP in 2 weeks, CV surgeon 2 weeks, Test Analyst 3-4 weeks For any questions regarding incisions/ dressing / meds / post op care or above Symptoms, Friday 8am-5pm Heart & Vascular Surgery Office ( Dr. Tran & Dr. Barbosa), After Hours / Nights (5pm -8am) Weekends and Holidays Please call [facility] Cardiac [facility] ([facility]) Charge Nurse - Case Management Consult Yes - Certification I have seen patient Jayjay Engel on 05/11/18. My clinical findings support the need for the requested home health care services because: Deconditioned with increased weakness I certify that my clinical findings support that this patient is homebound because: Post-op weakness
[2018-05-11] MEDS ORDERED: Insulin Regular (For Infusion) 100 UNIT in Sodium Chlor 0.9% Inj 99 ML IV.CONT PRN (11:55)
[2018-05-11] MEDS ORDERED: Metoprolol Inj 5 MG/5 ML Vial IV.PUSH PRN (11:55)
[2018-05-11] MEDS ORDERED: Calcium Chloride Inj 1 GM in Sodium Chlor 0.9% Inj 100 ML IV.SIG PRN (11:55)
[2018-05-11] MEDS ORDERED: Dextrose 50% in Water 50 ML Vial IV.PUSH PRN (11:55)
[2018-05-11] MEDS ORDERED: Magnesium Sulfate Inj 2 GM in Sodium Chlor 0.9% Inj 96 ML IV.SIG PRN ×4 (11:55)
[2018-05-11] MEDS ORDERED: Dexmedetomidine Inj 200 MCG in Sodium Chlor 0.9% Inj 48 ML IV.CONT PRN (11:55)
[2018-05-11] MEDS ORDERED: RESP: Racemic Epinephrine 2.25% 0.5 ML Neb NEB PRN (11:55)
[2018-05-11] MEDS ORDERED: Morphine Sulfate Inj 2 MG/ML Vial IV.PUSH PRN (11:55)
[2018-05-11] MEDS ORDERED: fentaNYL Citrate Inj 100 MCG/2 ML Ampul IV.PUSH PRN (11:55)
[2018-05-11] MEDS ORDERED: Ketorolac Inj 30 MG/ML (IVP) Vial IV.PUSH PRN (11:55)
[2018-05-11] MEDS ORDERED: Calcium Chloride Inj 1 GM/10 ML Syringe IV.PUSH PRN (11:55)
[2018-05-11] MEDS ORDERED: Potassium Chlor 20 mEq Premix 20 MEQ/100 ML PIGGYBACK IV.SIG PRN ×3 (11:55)
[2018-05-11] MEDS ORDERED: Phenylephrine Inj 40 MG in Sodium Chlor 0.9% Inj 496 ML IV.CONT PRN (11:55)
--- NOTE | 2018-05-11 12:17 | P.OP ---
Date of procedure: 05/11/18 Anesthesia: CATALINAA Surgeon: Dominguez Tran MD Operation and Findings: PREPROCEDURE DIAGNOSES 1. Severe Multi Vessel Coronary Artery Disease. 2. Severe aortic stenosis 3. Atrial fibrillation POSTPROCEDURE DIAGNOSES 1. Severe Multi Vessel Coronary Artery Disease. 2. Severe aortic stenosis 3. 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 Urgent Clampless off-pump Coronary Artery Bypass Grafting x 3 with Left Internal Mammary Artery (BANKS) to Left Anterior Descending (LAD), reverse saphenous vein graft to obtuse Marginal branch of the left Circumflex artery, reverse saphenous vein graft to the right Coronary artery 2. Left leg Endoscopic Vein [place] 3. Intraoperative Vein Mapping. SURGEON Dominguez Tran MD INSPECTOR FLOOR Calvin Tobar, JANEE Cooper, [facility] ANESTHESIA General endotracheal CUSTOMER SALES REPRESENTATIVE LUTHER Espinoza MD PREPARATION ChloraPrep. COUNTS Needle, sponge, and instrument counts were correct. DRAINS Two 32-American mediastinal tubes. COMPLICATIONS None. INDICATIONS FOR PROCEDURE The patient is a 87-year-old presenting with chest pain and shortness of breath. Patient was noted to have multi-vessel coronary artery disease and severe aortic stenosis. The patient is being brought to the operating room for surgical therapy. PROCEDURE Patient was brought to the operating room and placed supine on the OR table. Following the induction of adequate general endotracheal anesthesia and placement of appropriate monitoring devices, intraoperative vein mapping was performed which revealed marginal but usable-caliber conduit in the left lower extremity. The patient was then prepped and draped in standard sterile fashion. Next, 2500 units of intravenous heparin was given. The left greater saphenous vein was harvested endoscopically. This appeared to be a useable-caliber conduit. Simultaneously, a median sternotomy was performed and the left internal mammary artery dissected free off the posterior sternal table. The patient was systemically heparinized and anticoagulation monitored by serial ACT measurements. The internal mammary artery had excellent pulsatile flow in it and was a good-caliber conduit. The pericardium was then divided in the midline, the cradle created and targets analyzed. Inspection of the ascending aorta at this point revealed a near porcelain aorta. It was heavily calcified with a very small area that was spared in the very proximal aspect of the ascending aorta just distal to the root. There was no area to cannulate or to crossclamp the ascending aorta in order to proceed with the aortic valve procedure, therefore, plans were made to proceed with off-pump coronary revascularization with potential TAVR following recovery. At this point, all anastomoses were performed in a beating-heart fashion using the [place] stabilizing system. The left internal mammary artery was anastomosed to the mid LAD (1.75 mm) in an end-to-side fashion using 7-0 Prolene. Segment of saphenous vein graft was then anastomosed to the OM1 (2 mm) in an end-to-side fashion using 7-0 Prolene. The final segment was anastomosed to the RCA (2 mm) in an end-to-side fashion using 7-0 Prolene. The proximal anastomoses were then constructed to the ascending aorta in a clamp less fashion using the heartstring device and a running 6-0 Prolene. All anastomotic sites were inspected and appeared to be hemostatic and patent. Protamine solution was given. Strict hemostasis was assured. The closure was undertaken. 2 chest tubes and ventricular pacing wires were placed. The pericardium was reapproximated in the midline. The sternum was approximated using sternal wires. The muscular and fascial layer were then closed in 3 layers. The endoscopic vein harvest site was closed in 2 layers. The patient tolerated the procedure well and was transferred to CVICU in stable condition.
[2018-05-11] MEDS ORDERED: fentaNYL Citrate Inj 250 MCG/5 ML Ampul ONE (12:32)
[2018-05-11] MEDS ORDERED: DOPamine 400 MG/250 ML Premix 400 MG/250 ML BAG IV.CONT ONE (12:42)
[2018-05-11] MEDS ORDERED: Post-op Orders (for Pharmacy) OTHER STA (12:47)
[2018-05-11] MEDS: Albumin Human 5% Inj 250 ML IV.SIG PRN ×2 (12:49→13:03)
--- NOTE | 2018-05-11 13:19 | XR ---
EXAM DATE: 05/11/2018 1:16 PM EDT AGE/SEX: 87 years / Male INDICATIONS: Post op cab. CLINICAL DATA: This is the patient's initial encounter. Patient reports that signs and symptoms have been present for 1 day and indicates a pain score of Nonresponsive. MEDICAL/SURGICAL HISTORY: Carcinoma, prostatic. a-fib, angina, aortic stenosis, arthritis, sick sinus syndrome, hiatal hernia None. COMPARISON: [facility] [place], CHEST 2V PA&LAT, 05/06/2018. . FINDINGS: ET tube nasogastric tube and central line, chest tubes and mediastinal drain are noted. Mediastinum i s prominent. There is no pneumothorax. There is no pleural effusion. CONCLUSION: Support apparatus in good position. Mild prominence the mediastinum. Electronically signed by: Lukas Lopez MD 05/11/2018 1:17 PM EDT
[2018-05-11] MEDS: Docusate Sodium 100 MG Capsule PO SCH ×2 (14:17→21:10)
[2018-05-11] MEDS: Dorzolamide-Timolol 2/0.5% Opth Drops 10 ML Bottle EACH EYE SCH ×2 (14:17→20:55)
[2018-05-11] MEDS: dilTIAZem CD 120 MG Capsule PO SCH (14:17)
--- NOTE | 2018-05-11 14:29 | MB ---
cc: Kedar Noble MD DATE: 05/11/2018 CRITICAL CARE CONSULTATION REASON FOR CONSULTATION: Critical care management. HISTORY OF PRESENT ILLNESS: The patient is an 87-year-old male with a past medical history of multivessel coronary artery disease, severe aortic stenosis, hypertension, hyperlipidemia, prostate cancer, who underwent off-pump CABG x3 by Dr. Tran. The patient remained on mechanical ventilation postop and Critical Care Medicine was consulted for critical care management. He underwent a cardiac catheterization by Dr. 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 He was seen by vascular surgery on 05/08/2018 as the patient developed right groin hematoma post-cardiac catheterization. He had an ultrasound of the lower extremity which showed no evidence of pseudoaneurysm; small hematoma adjacent to the common femoral vein measuring about 2 cm in diameter. When seen postop, patient was on Precedex at 0.3, Silverio-Synephrine currently at 60 mcg, dopamine at 5 mcg with a current blood pressure 97/44, with a heart rate of 49. He was cardioverted in the OR to sinus deshawn. Chest x-ray postop showed mild prominence in the mediastinum. PAST MEDICAL HISTORY: Significant for abdominal aortic aneurysm, atrial fibrillation, hyperlipidemia, hypertension, prostate cancer, sick sinus syndrome. ALLERGIES: NO KNOWN DRUG ALLERGIES. SOCIAL HISTORY: Ex-smoker, social drinker. FAMILY HISTORY: Noncontributing to present illness. CURRENT MEDICATIONS: 1. DuoNeb. 2. Aspirin. 3. Dopamine. 4. Silverio-Synephrine 5. Insulin drip. REVIEW OF SYSTEMS: As per HPI. Rest of review of systems limited as the patient is intubated. PHYSICAL EXAMINATION: GENERAL: An 87-year-old male status post CABG x3 off-pump, intubated. VITAL SIGNS: Temperature 97.7, pulse of 44-49, blood pressure 97/44, saturation 97%. Vent settings: CPAP pressure support of 10, PEEP of 5, 40% FiO2. HEENT: Atraumatic, normocephalic. Pupils equal and reactive to light and accommodation. Extraocular muscles intact. Conjunctivae pink. Nonicteric. Oral mucosa within normal. NECK: Supple. No JVD, adenopathy or thyromegaly. Trachea in the midline. CARDIOVASCULAR: Sinus deshawn; normal S1, S2. No murmurs, rubs or gallops noted. NECK: Supple. No JVD. PULMONARY: Bilaterally clear air entry. No rales or wheezing. ABDOMEN: Soft, nontender. No distention. Positive bowel sounds. EXTREMITIES: No cyanosis, clubbing, edema. NEUROLOGIC: Intubated. LABORATORY DATA: From 05/10/2018: WBC 11, hemoglobin 12.4, hematocrit 36, platelet count 154. Sodium 142, potassium 4, chloride 109, CO2 25, BUN 16, creatinine 0.78, glucose 123. RADIOGRAPHIC STUDIES: 1. A chest x-ray postop showed mild prominence in the mediastinum. 2. Venous Doppler ultrasound on 05/05/2018: No evidence of DVT. 3. CT chest from 05/04/2018 showed 1.6 cm focal infiltrate versus mass density in the peripheral right upper lung, aneurysmal dilatation of the infrarenal abdominal aorta measuring 4.4 cm x 4.4 cm. IMPRESSION: 1. Ventilator-dependent respiratory failure. 2. Status post coronary artery bypass graft x3 off-pump. 3. Severe aortic stenosis. 4. Multivessel coronary artery disease. 5. Atrial fibrillation. 6. History of hypertension. 7. Hyperlipidemia. 8. 1.6 cm infiltrate versus mass density in the peripheral right upper lung. 9. Infrarenal abdominal aortic aneurysm; 4.4 cm x 4.4 cm. RECOMMENDATIONS: 1. The patient was weaned off Precedex drip 2. Monitor neuro status closely. 3. Continue with vent support and maintain sats above 92%. 4. Bronchodilators in the form of DuoNeb every 6 hours plus every 2 hours p.r.n. for shortness of breath. 5. ICU vent bundle and continue with spontaneous breathing trials as tolerated. 6. Wean off pressors. He is currently on Silverio-Synephrine at 60 mcg and dopamine at 5 mcg. Maintain MAP greater than 65 mmHg. 7. The patient is status post cardiac catheterization on 05/04/2018, which showed severe aortic stenosis, multivessel disease, normal filling pressures and normal cardiac output/cardiac index. 8. Monitor chest tube drainage. Chest tube management per CT Surgery. 9. We will consult pulmonary service regarding abnormal focal opacity; 1.6 cm infiltrate versus a mass density in the peripheral right upper lung. This could be a focal inflammatory process versus mass. The patient might need a PET CT scan as an outpatient. 10. Monitor renal function, I's and O's and electrolyte replacement per protocol. 11. Continue with aspirin 81 mg daily, Plavix 75 mg daily to be started tomorrow. 12. Perioperative antibiotics per CT Surgery. He is on cefazolin. Monitor for signs of infection, which include fever and WBC. 13. Keep n.p.o. and continue with Protonix 40 mg daily. 14. Glycemic control. The patient is currently on insulin drip per protocol. 15. Monitor CBC. 16. Gastrointestinal prophylaxis with Protonix 40 mg daily and deep venous thrombosis prophylaxis with sequential compression devices. 17. IV access; right IJ CVP and left radial A-line in place. 18. Continue present treatment plan. MD VU Centeno/chalo , 01:52 PM , 02:08 PM
[2018-05-11 14:33] LABS: Alanine Aminotransferase 15 U/L (12-78); Anion Gap 8 meq/L (5-15); Aspartate Aminotransferase 11 U/L (15-37); Blood Urea Nitrogen 17 mg/dL (7-18); Calcium 8.2 mg/dL (8.5-10.1); Carbon Dioxide 25.1 meq/L (21.0-32.0); Chloride 111 meq/L (98-107); Glomerular Filtration Rate 80 mL/min (>89); Glucose,Random 134 mg/dL (74-106); Magnesium 2.6 mg/dL (1.5-2.5); Phosphorus 2.9 mg/dL (2.5-4.9); Potassium 4.2 meq/L (3.5-5.1); Sodium 144 meq/L (136-145)
[2018-05-11 14:34] LABS: Alkaline Phosphatase 62 U/L (45-117); Total Protein 5.2 g/dL (6.4-8.2)
--- NOTE | 2018-05-11 14:46 | ECG ---
Date Performed: 05/08/2018 Time Performed: 07:15:24 PTAGE: 87 years EKG: Sinus rhythm Inferior/lateral T wave changes are nonspecific Borderline ECG NO PREVIOUS TRACING DOCTOR: Leon De La Cruz Interpretating Date/Time 05/11/2018 14:43:25
[2018-05-11] MEDS: Latanoprost 0.005% Opth Drops 2.5 ML Bottle EACH EYE SCH (20:55)
[2018-05-12 06:10] LABS: Hematocrit 28.4 % (39.0-51.0); Hemoglobin 9.7 gm/dL (13.0-17.0); Mean Corpuscular HGB Conc 34.2 % (32.0-36.0); Mean Corpuscular Volume 90.5 fL (80.0-100.0); Mean Platelet Volume 9.1 fL (7.0-11.0); Platelet Count 166 th/mm3 (150-450); Red Blood Count 3.14 mil/mm3 (4.50-5.90); Red Cell Distribution Width 13.8 % (11.6-17.2); White Blood Count 25.2 th/mm3 (4.0-11.0)
--- NOTE | 2018-05-12 06:13 | XR ---
EXAM DATE: 05/12/2018 5:48 AM EDT AGE/SEX: 87 years / Male INDICATIONS: Status post CABG five days ago. CLINICAL DATA: This is the patient's subsequent encounter. Patient reports that signs and symptoms h ave been present for 1 week and indicates a pain score of 5/10. MEDICAL/SURGICAL HISTORY: Aneurysm, abdominal. Carcinoma, prostatic. Hypertension. A-Fib. Ao rtic stenosis. CABG. Central line. COMPARISON: [facility], CHEST 1V SINGLE AP, 05/11/2018. . FINDINGS: Median sternotomy changes are again noted. Mild cardiomegaly is stable. Mediastinal drain and left ch est tube remain in place. No pneumothorax seen. Mild streaky atelectasis of both mid and lower lungs is modestly improved in the interim. Patient has been extubated. Nasogastric tube out. Right internal jugular central venous catheter allison ins in place, tip in the superior vena cava. CONCLUSION: 1. Interim extubation and nasogastric tube removal. 2. Other lines and tubes unchanged, including a mediastinal drain and left chest tube. No pneumothor ax. 3. Slightly improved bilateral atelectasis. Electronically signed by: Calvin Mancini MD 05/12/2018 6:12 AM EDT
[2018-05-12 06:35] LABS: Anion Gap 8 meq/L (5-15); Blood Urea Nitrogen 17 mg/dL (7-18); Calcium 8.1 mg/dL (8.5-10.1); Carbon Dioxide 23.5 meq/L (21.0-32.0); Chloride 110 meq/L (98-107); Glomerular Filtration Rate Greater Than 89 mL/min (>89); Glucose,Random 110 mg/dL (74-106); Potassium 4.7 meq/L (3.5-5.1); Sodium 141 meq/L (136-145)
[2018-05-12] MEDS ORDERED: DOPamine 400 MG/250 ML Premix 400 MG/250 ML BAG IV.CONT ONE (06:55)
[2018-05-12] MEDS: DOPamine Inj 800 MG in Sodium Chlor 0.9% Inj 500 ML IV.CONT PRN (07:25)
[2018-05-12] MEDS ORDERED: Bisacodyl 10 MG Supp RECTAL PRN (08:28)
[2018-05-12] MEDS ORDERED: Dextrose 50% in Water 50 ML Vial IV.PUSH PRN (08:28)
[2018-05-12] MEDS ORDERED: Sod Phosphate/Sod Biphosphate (Adult) Enema 133 ML Bottle RECTAL PRN (08:28)
[2018-05-12] MEDS ORDERED: Mag Sulf 1 gm/100 ml Premix 100 ML IV.SIG ONE (09:00)
[2018-05-12] MEDS: Multivitamin/Minerals Therapeutic Tablet PO SCH (09:07)
[2018-05-12] MEDS: ceFAZolin Inj 2,000 MG in Sodium Chlor 0.9% Inj 80 ML IV.SIG SCH ×3 (09:08→23:28)
[2018-05-12] MEDS: Dorzolamide-Timolol 2/0.5% Opth Drops 10 ML Bottle EACH EYE SCH ×2 (09:08→20:18)
[2018-05-12] MEDS: Insulin NovoLOG Aspart Correctional Sugar Inj SQ SCH ×4 (09:26→23:19)
--- NOTE | 2018-05-12 10:16 | P.PNCV ---
- Note Subjective/Hospital Course: 87/ male history of aortic stenosis, presented to Dr. Nunn's office for a transcatheter aortic valve consultation. His aortic valve area is now 0.7 cm with a mean gradient of 48 mmHg. He has been somewhat sedentary, but is still able to do some housework and yard work. He underwent cardiac catheterization today for further evaluation, which showed a 90% distal stenosis in the left main coronary artery at the bifurcation of the LAD and the left circumflex artery. 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 The mid coronary artery had 75% calcific stenosis. Right-sided heart catheterization, showed a right atrial pressure of 7 mmHg, pulmonary artery pressure of 28/8, a wedge pressure of 9, cardiac output of 3.9 with an index of 2.2. We were consulted to evaluate for possible aortic valve replacement in combination with coronary artery bypass grafting versus transcatheter aortic valve replacement and high-risk PCI with Impella ventricular assist device placement. PAST MEDICAL HISTORY: chronic atrial fibrillation, history of abdominal aortic aneurysm without rupture, aortic stenosis, cervical radiculopathy, history of CVA in the past, hypertension and hyperlipidemia. He is legally blind. He has some central vision. Coumadin therapy, osteoarthritis, history of prostate cancer treated with resection 11 years ago, history of sick sinus syndrome. 05/05 pt now at bedside, further discussion with pt and and Dr Nunn in regards to treatment options Dr Tran will discuss final plans with and pt this afternoon 05/06 pt and agreeable for surgery on Friday venous mapping : nonvisualization of greater saphenous throughout the right calf , nonvisualization of greater saphenous in the mid and distal portions of left calf CT chest aneurysmal dilatation of infrarenal abdominal aorta 4.4x4.4cm 1.6 cm focal infiltrate vs mass peripheral right upper lung 05/07 pt denies any chest pain or SOB stable for surgery in am 05/08 OR cancelled today 2/2 hematoma right groin appreciate vascular input Lower ext ultrasound : CONCLUSION: 1. Negative for pseudoaneurysm. Small hematoma adjacent to the common femoral vein measuring about 2 cm in diameter. rescheduled for Friday spoke with pt and no limb ischemia 05/09 Clinically and hemodynamically stable Ultrasound reviewed Greatly appreciate Dr. Bliss's input Plan OR 05/10 Remains stable OR tomorrow 05/11 surgery PREPROCEDURE DIAGNOSES 1. Severe Multi Vessel Coronary Artery Disease. 2. Severe aortic stenosis 3. Atrial fibrillation POSTPROCEDURE DIAGNOSES 1. Severe Multi Vessel Coronary Artery Disease. 2. Severe aortic stenosis 3. 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 Urgent Clampless off-pump Coronary Artery Bypass Grafting x 3 with Left Internal Mammary Artery (BANKS) to Left Anterior Descending (LAD), reverse saphenous vein graft to obtuse Marginal branch of the left Circumflex artery, reverse saphenous vein graft to the right Coronary artery 2. Left leg Endoscopic Vein [place] 3. Intraoperative Vein Mapping. extubated after surgery crystalloid 3000cc, 650cc cell saver 05/12 on 5 liter nasal cannula intermittently paced last pm intermittent Afib with rate 60-70 pt will need to have workup for TAVR at a later date lactic acid 0.9 weaning off Silverio gtt / on 5 mcq of Dopamine on 5 liter nasal cannula intermittently paced last pm intermittent Afib with rate 60-70/ consult placed with Dr Millan on ASA, Plavix, no BB , amiodarone or CCB/ dc toradol leave in CVICU for now Objective: Vital Signs - 24 hr 05/11/18 12:24 05/11/18 12:30 05/11/18 13:00 Temperature 97.7 F 97.7 F Pulse Rate 45 L 44 L Respiratory Rate 11 L 12 Blood Pressure 125/52 L Pulse Oximetry 97 97 05/11/18 14:35 05/11/18 14:41 05/11/18 15:00 Temperature 97.4 F L Pulse Rate 75 Respiratory Rate 10 L Blood Pressure 114/58 L Pulse Oximetry 98 94 L 94 L 05/11/18 16:13 05/11/18 18:25 05/11/18 19:00 Temperature 97.4 F L Pulse Rate 70 59 L Respiratory Rate 18 12 16 Blood Pressure 106/53 L Pulse Oximetry 98 05/11/18 21:25 05/11/18 23:00 05/12/18 03:00 Temperature 97.8 F 97.9 F Pulse Rate 75 89 69 Respiratory Rate 16 16 16 Blood Pressure 115/51 L 92/52 L Pulse Oximetry 97 97 98 05/12/18 03:26 05/12/18 07:00 05/12/18 09:22 Temperature 98.4 F Pulse Rate 69 64 76 Respiratory Rate 14 12 18 Blood Pressure 125/66 Pulse Oximetry 95 97 GENERAL: A&O x 3 SKIN: Warm and dry. prevena dressing to chest , dressing in place left leg hematoma right groin site, some old ecchymosis HEAD: Normocephalic. EYES: No scleral icterus. No injection or drainage. NECK: Supple, trachea midline. No JVD or lymphadenopathy. CARDIOVASCULAR: irregular rate and rhythm/ 3/6 sm RESPIRATORY: Breath sounds equal bilaterally. No accessory muscle use. diminished in bases / chest tube to wall suction / no air leak/ drained 130cc/ 12 hrs GASTROINTESTINAL: Abdomen soft, non-tender, nondistended. MUSCULOSKELETAL: No cyanosis, or edema. BACK: Nontender without obvious deformity. No CVA tenderness. Labs: Laboratory Results - last 12 hr 05/12/18 05/12/18 05/12/18 00:48 01:03 02:13 WBC RBC Hgb Hct MCV MCH MCHC RDW Plt Count MPV Sodium Potassium Chloride Carbon Dioxide Anion Gap BUN Creatinine Estimated GFR POC Glucose 56 L 144 H 97 Random Glucose Calcium Magnesium 05/12/18 05/12/18 05/12/18 03:00 05:19 05:19 WBC 25.2 H RBC 3.14 L Hgb 9.7 L Hct 28.4 L MCV 90.5 MCH 31.0 MCHC 34.2 RDW 13.8 Plt Count 166 MPV 9.1 Sodium 141 Potassium 4.7 Chloride 110 H Carbon Dioxide 23.5 Anion Gap 8 BUN 17 Creatinine 0.77 Estimated GFR Greater than 89 POC Glucose 112 H Random Glucose 110 H Calcium 8.1 L Magnesium 2.0 D 05/12/18 05/12/18 05/12/18 05:23 06:50 08:11 WBC RBC Hgb Hct MCV MCH MCHC RDW Plt Count MPV Sodium Potassium Chloride Carbon Dioxide Anion Gap BUN Creatinine Estimated GFR POC Glucose 127 H 100 100 Random Glucose Calcium Magnesium 05/12/18 09:26 WBC RBC Hgb Hct MCV MCH MCHC RDW Plt Count MPV Sodium Potassium Chloride Carbon Dioxide Anion Gap BUN Creatinine Estimated GFR POC Glucose 120 H Random Glucose Calcium Magnesium Result Diagrams: 05/12/18 05:19 05/12/18 05:19 Telemetry: afib - Plan (1) S/P CABG (coronary artery bypass graft) Plan: ASA, plavix AV will need to be addressed as a TAVR workup at later date (4-6weeks ) no BB , no amiodarone 2/2 bradycardia remains on pressors weaning slowly s/p volume infusion lactic acid 0.9 OOB to chair later this am pulm toileting eval for rehab at discharge (3) Coronary artery disease Plan: for surgery on Friday cnacelled today 2/2 hematoma right groin US no pseudoaneurysm superficial hematoma ASA, CCB (4) Atrial fibrillation Plan: was on coumadin at home consult placed for Dr Millan / yuri for pacer (5) Legally blind Plan: may need rehab
--- NOTE | 2018-05-12 10:19 | P.PNCC ---
Subjective Subjective Remarks/Hospital Course: patient is an 87-year-old male with a past medical history of multivessel coronary artery disease, severe aortic stenosis, hypertension, hyperlipidemia, prostate cancer, who underwent off-pump CABG x3 by Dr. Tran. The patient remained on mechanical ventilation postop and Critical Care Medicine was consulted for critical care management. He underwent a cardiac catheterization by Dr. 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 He was seen by vascular surgery on 05/08/2018 as the patient developed right groin hematoma post-cardiac catheterization. He had an ultrasound of the lower extremity which showed no evidence of pseudoaneurysm; small hematoma adjacent to the common femoral vein measuring about 2 cm in diameter. When seen postop, patient was on Precedex at 0.3, Silverio-Synephrine currently at 60 mcg, dopamine at 5 mcg with a current blood pressure 97/44, with a heart rate of 49. He was cardioverted in the OR to sinus deshawn. Chest x-ray postop showed mild prominence in the mediastinum. 05/12 Patient was extubated yesterday On Dopamine 5 mics and Neosyn 10 mics. Afebrile. Objective Vital Signs / I&O: Vital Signs 05/11/18 12:24 05/11/18 12:30 05/11/18 13:00 Temperature 97.7 F 97.7 F Pulse Rate 45 L 44 L Respiratory Rate 11 L 12 Blood Pressure 125/52 L Pulse Oximetry 97 97 05/11/18 14:35 05/11/18 14:41 05/11/18 15:00 Temperature 97.4 F L Pulse Rate 75 Respiratory Rate 10 L Blood Pressure 114/58 L Pulse Oximetry 98 94 L 94 L 05/11/18 16:13 05/11/18 18:25 05/11/18 19:00 Temperature 97.4 F L Pulse Rate 70 59 L Respiratory Rate 18 12 16 Blood Pressure 106/53 L Pulse Oximetry 98 05/11/18 21:25 05/11/18 23:00 05/12/18 03:00 Temperature 97.8 F 97.9 F Pulse Rate 75 89 69 Respiratory Rate 16 16 16 Blood Pressure 115/51 L 92/52 L Pulse Oximetry 97 97 98 05/12/18 03:26 05/12/18 07:00 05/12/18 09:22 Temperature 98.4 F Pulse Rate 69 64 76 Respiratory Rate 14 12 18 Blood Pressure 125/66 Pulse Oximetry 95 97 Intake & Output 05/11/18 05/12/18 05/12/18 18:59 06:59 18:59 Intake Total 5566 / 5566 2200 / 2200 582 / 582 Output Total 1575 / 1575 715 / 715 Balance 3991 / 3991 1485 / 1485 582 / 582 Weight 77.5 kg Intake: IV 1366 / 1366 200 / 200 582 / 582 DOPamine 400 MG/250 ML Premix 68 / 68 400 mg In 250 ml @ 0 mls/hr IV. CONT .STK-MED ONE Rx#:[id number] Precedex Inj 200 MCG In NS Inj 12 / 12 0 / 0 48 ML @ 0.2 MCG/KG/HR 3.52 mls/ hr IV.CONT TITRATE PRN Rx#: [id number] NovoLIN R (IV Infusion) 100 44 / 44 32 / 32 UNIT In NS Inj 99 ML @ 3 UNITS/ HR 3 mls/hr IV.CONT TITRATE PRN Rx#:[id number] Neosynephrine Inj 40 MG In NS 192 / 192 Inj 496 ML @ 40 MCG/MIN 30 mls/ hr IV.CONT TITRATE PRN Rx#: [id number] Ofirmev Inj 1,000 mg In 100 ml 200 / 200 100 / 100 100 / 100 @ 400 mls/hr IV.SIG Q6H [place] Rx# :[id number] Buminate 5% Inj 250 ML @ 250 500 / 500 mls/hr IV.SIG UNSCH PRN Rx#: [id number] Calcium Chloride Inj 1 GM In NS 100 / 100 Inj 100 ML @ 100 mls/hr IV.SIG PRN PRN Rx#:[id number] LR 1000 mL Inj 250 ML @ Wide 250 / 250 Open IV.SIG .Q0M [place] Rx#: [id number] KCl 20 mEq Premix Inj 20 meq In 100 / 100 100 ml @ 50 mls/hr IV.SIG PRN PRN Rx#:[id number] Ancef 2 GM Premix Inj 2 gm In 50 / 50 50 ml @ 0 mls/hr IV.SIG .STK- MED ONE Rx#:[id number] Ancef Inj 2,000 MG In NS Inj 80 200 / 200 100 / 100 100 / 100 ML @ 200 mls/hr IV.SIG Q8H [facility] Rx#:[id number] Anesthesia Amount 3000 / 3000 Other 1200 / 1200 2000 / 2000 Output: Estimated Blood Loss 650 / 650 Urine Amount (Catheter) 625 / 625 585 / 585 Indwelling Temp Sensing 625 / 625 585 / 585 Catheter Chest Tube Drainage 300 / 300 130 / 130 #1Y and #2Y Right Pleural/ 300 / 300 130 / 130 Mediastinal Y Connected Other: Other Intake Source Saline Solution Saline Solution Result Diagrams: 05/12/18 05:19 05/12/18 05:19 Other Results: Laboratory Results - last 12 hr 05/12/18 05/12/18 05/12/18 00:48 01:03 02:13 WBC RBC Hgb Hct MCV MCH MCHC RDW Plt Count MPV Sodium Potassium Chloride Carbon Dioxide Anion Gap BUN Creatinine Estimated GFR POC Glucose 56 L 144 H 97 Random Glucose Calcium Magnesium 05/12/18 05/12/18 05/12/18 03:00 05:19 05:19 WBC 25.2 H RBC 3.14 L Hgb 9.7 L Hct 28.4 L MCV 90.5 MCH 31.0 MCHC 34.2 RDW 13.8 Plt Count 166 MPV 9.1 Sodium 141 Potassium 4.7 Chloride 110 H Carbon Dioxide 23.5 Anion Gap 8 BUN 17 Creatinine 0.77 Estimated GFR Greater than 89 POC Glucose 112 H Random Glucose 110 H Calcium 8.1 L Magnesium 2.0 D 05/12/18 05/12/18 05/12/18 05:23 06:50 08:11 WBC RBC Hgb Hct MCV MCH MCHC RDW Plt Count MPV Sodium Potassium Chloride Carbon Dioxide Anion Gap BUN Creatinine Estimated GFR POC Glucose 127 H 100 100 Random Glucose Calcium Magnesium 05/12/18 09:26 WBC RBC Hgb Hct MCV MCH MCHC RDW Plt Count MPV Sodium Potassium Chloride Carbon Dioxide Anion Gap BUN Creatinine Estimated GFR POC Glucose 120 H Random Glucose Calcium Magnesium Imaging: Chest CT 05/04/18 00:00 CONCLUSION: 1. There is a 1.6 cm focal infiltrate versus mass density in the peripheral right upper lung. This may be a focal inflammatory process versus mass. There are no prior studies for comparison. If this does not resolve after appropriate medical therapy, a PET CT could be performed for further evaluation. 2. There is aneurysmal dilatation of the infrarenal abdominal aorta measuring 4.4 x 4.4 cm. There is diffuse atherosclerotic changes throughout the thoracic and abdominal aorta. 3. Short segment focal moderate to possibly high-grade stenosis involving the proximal segment of the left renal artery. Carotid Doppler Study 05/05/18 15:43 CONCLUSION: Calcified atherosclerotic plaque bilaterally slightly more abundant on the left without a hemodynamically significant stenosis involving either carotid artery. Antegrade flow involving both vertebral arteries. Venous Doppler Study 05/05/18 15:43 CONCLUSION: Negative exam. No sonographic or Doppler findings of deep venous thrombosis. Lower Extremity Ultrasound 05/08/18 00:00 CONCLUSION: 1. Negative for pseudoaneurysm. Small hematoma adjacent to the common femoral vein measuring about 2 cm in diameter. Chest X-Ray 05/12/18 05:00 CONCLUSION: 1. Interim extubation and nasogastric tube removal. 2. Other lines and tubes unchanged, including a mediastinal drain and left chest tube. No pneumothorax. 3. Slightly improved bilateral atelectasis. Objective Remarks: GENERAL: Patient is 87 yo lying in bed in NAD SKIN: Warm and dry. HEAD: Normocephalic. EYES: No scleral icterus. No injection or drainage. NECK: Supple, trachea midline. No JVD or lymphadenopathy. CARDIOVASCULAR: Regular rate and rhythm without murmurs, gallops, or rubs. RESPIRATORY: Breath sounds equal bilaterally. No accessory muscle use. GASTROINTESTINAL: Abdomen soft, non-tender, nondistended. MUSCULOSKELETAL: No cyanosis, or edema. Neuro: Awake and alert Assessment and Plan - Assessment and Plan Plan: 1. Resp Insuff s/p extubation 05/11 2. S/p CABG x3 off-pump. 3. Severe aortic stenosis. 4. Multivessel coronary artery disease. 5. Atrial fibrillation. 6. History of hypertension. 7. Hyperlipidemia. 8. 1.6 cm infiltrate versus mass density in the peripheral right upper lung. 9. Infrarenal abdominal aortic aneurysm; 4.4 cm x 4.4 cm. Plan Neuro: Monitor neuro status, avoid sedatives Pulm: Continue with oxygen and maintain sats>92%. Bronchodilators , incentive spirometry CXR today: Slightly improved bilateral atelectasis CV: Wean off pressors ( On Dopamine 5mics, Neosyn 10 mics) Monitor HR and BP maintain MAP> 65 mmHg. s/p cardiac cath 05/04: severe , multivessel disease, normal filling pressures and normal cardiac output/cardiac index. Monitor chest tube drainage. Chest tube management per CT Surgery. Continue with aspirin 81 mg daily, Plavix 75 mg daily : Monitor renal function, I's and O's and electrolyte replacement per protocol. ID: Perioperative antibiotics per CT Surgery. He is on cefazolin. Monitor for signs of infection,(fever and WBC). Repeat CBC GI: Protonix 40 mg daily. Endo: SSI for Glycemic control. Heme: Monitor CBC. GI prophylaxis with Protonix 40 mg daily DVT prophylaxis with SCD IV access; right IJ CVP placed 05/11 Level 3
--- NOTE | 2018-05-12 10:52 | P.DIET ---
Nutritional Evaluation Screening comments: MDC for diet education received s/p CABG on 05/11. Patient Navigator to provide education. Consult RD if complexities with diet education arise.
[2018-05-12 11:01] LABS: Baso # (Auto) 0.1 th/mm3 (0.0-0.2); Baso % (Auto) 0.3 % (0.0-2.0); Hematocrit 28.1 % (39.0-51.0); Hemoglobin 9.4 gm/dL (13.0-17.0); Lymph # (Auto) 1.4 th/mm3 (1.0-4.8); Mean Corpuscular HGB Conc 33.4 % (32.0-36.0); Mean Corpuscular Volume 92.8 fL (80.0-100.0); Mean Platelet Volume 7.9 fL (7.0-11.0); Mono # (Auto) 1.9 th/mm3 (0.0-0.9); Mono % (Auto) 8.6 % (0.0-8.0); Neut # (Auto) 19.2 th/mm3 (1.8-7.7); Neut % (Auto) 85.1 % (16.0-70.0); Platelet Count 144 th/mm3 (150-450); Red Blood Count 3.03 mil/mm3 (4.50-5.90); Red Cell Distribution Width 13.9 % (11.6-17.2); White Blood Count 22.6 th/mm3 (4.0-11.0)
[2018-05-12] MEDS ORDERED: Acetaminophen 650 MG Supp RECTAL PRN (12:00)
[2018-05-12] MEDS ORDERED: Acetaminophen 325 MG Tablet PO PRN (12:00)
--- NOTE | 2018-05-12 14:56 | ECG ---
Date Performed: 05/12/2018 Time Performed: 07:59:34 PTAGE: 87 years EKG: CONSIDER ACUTE ST ELEVATION [place] Sinus rhythm . Anterolateral ST elevation, CONSIDER ACUTE INFARCT Since the previous tracing, no significant rosen e noted Abnormal ECG NO PREVIOUS TRACING DOCTOR: Kyle Tanner Interpretating Date/Time 05/12/2018 14:49:56
[2018-05-12] MEDS: Docusate Sodium 100 MG Capsule PO SCH (20:17)
[2018-05-12] MEDS: Latanoprost 0.005% Opth Drops 2.5 ML Bottle EACH EYE SCH (20:18)
[2018-05-13] MEDS: Insulin NovoLOG Aspart Correctional Sugar Inj SQ SCH ×5 (02:57→20:31)
[2018-05-13] MEDS: DOPamine Inj 800 MG in Sodium Chlor 0.9% Inj 500 ML IV.CONT PRN (02:58)
[2018-05-13 05:28] LABS: Baso # (Auto) 0.1 th/mm3 (0.0-0.2); Baso % (Auto) 0.4 % (0.0-2.0); Eos % (Auto) 0.1 % (0.0-4.0); Hematocrit 25.4 % (39.0-51.0); Hemoglobin 8.6 gm/dL (13.0-17.0); Lymph # (Auto) 1.3 th/mm3 (1.0-4.8); Lymph % (Auto) 7.7 % (9.0-44.0); Mean Corpuscular HGB Conc 33.7 % (32.0-36.0); Mean Corpuscular Hemoglobin 31.2 pg (27.0-34.0); Mean Corpuscular Volume 92.8 fL (80.0-100.0); Mean Platelet Volume 8.7 fL (7.0-11.0); Mono # (Auto) 1.5 th/mm3 (0.0-0.9); Mono % (Auto) 9.1 % (0.0-8.0); Neut % (Auto) 82.7 % (16.0-70.0); Platelet Count 120 th/mm3 (150-450); Red Blood Count 2.74 mil/mm3 (4.50-5.90); Red Cell Distribution Width 13.9 % (11.6-17.2)
[2018-05-13 05:58] LABS: Anion Gap 5 meq/L (5-15); Blood Urea Nitrogen 18 mg/dL (7-18); Calcium 8.1 mg/dL (8.5-10.1); Carbon Dioxide 26.9 meq/L (21.0-32.0); Chloride 108 meq/L (98-107); Glomerular Filtration Rate Greater Than 89 mL/min (>89); Glucose,Random 103 mg/dL (74-106); Magnesium 2.3 mg/dL (1.5-2.5); Potassium 4.3 meq/L (3.5-5.1); Sodium 140 meq/L (136-145)
--- NOTE | 2018-05-13 07:21 | MB ---
cc: Sandra Millan MD,Dominguez Russell MD DATE: 05/12/2018 REASON FOR CONSULTATION: For evaluation of TAVR. HISTORY OF PRESENT ILLNESS: Mr. Engel is an 87-year-old gentleman with history of coronary artery disease, left main 78%, severe aortic stenosis, aortic valve area around 0.7 cm2 with a mean gradient of around 48, ____ coronary artery bypass grafting today scheduled for transaortic valve replacement in the near future. The patient is post-CABG. Doing well. He also has history of atrial fibrillation and abdominal aneurysm. The chart was reviewed. The patient was evaluated. The patient is legally blind and history of CVA. ALLERGIES: NONE. SOCIAL HISTORY: The patient denies smoking and drinking. FAMILY HISTORY: Noncontributory to his current medical condition. MEDICATIONS: Currently, the gentleman is on acetaminophen. He is on aspirin 81 mg a day. He is on Plavix 75 mg a day, insulin, Toradol, magnesium, metoprolol, Protonix, Zofran, and potassium. REVIEW OF SYSTEMS: He is feeling tired. He want to go home. He want to know when the TAVR is going to be done. PHYSICAL EXAMINATION: GENERAL: Alert, fully oriented. VITAL SIGNS: His blood pressure on evaluation this morning 107/53, pulse 55, respiratory rate 18. LUNGS: Ventilated. CARDIOVASCULAR: S1, S2 regular. No gallop. ABDOMEN: Soft, obese. No mass. EXTREMITIES: No edema. Right jugular area with central line access. ELECTROCARDIOGRAM: Sinus with diffuse ST changes. There is no significant change compared to previous electrocardiogram. LABORATORY DATA: Hemoglobin is 9.4, white blood cell 22.6, INR 1.0. Potassium 4.7, creatinine 0.77. ASSESSMENT AND RECOMMENDATIONS: Mr. Engel is stable. He is in sinus rhythm. Electrocardiogram is stable. No sign of interventricular conduction delay. There is also ____ of bradycardia. At this point, my recommendation is to continue with current management. Further decision by the TAVR team. I will follow Mr. Engel on a p.r.n. basis. Case extensively discussed with his . No need at this point for AV claudia conduction evaluation. Sandra Millan MD HS/sv/ll , 07:58 PM , 08:09 PM
--- NOTE | 2018-05-13 08:00 | P.PNCC ---
Subjective Subjective Remarks/Hospital Course: patient is an 87-year-old male with a past medical history of multivessel coronary artery disease, severe aortic stenosis, hypertension, hyperlipidemia, prostate cancer, who underwent off-pump CABG x3 by Dr. Tran. The patient remained on mechanical ventilation postop and Critical Care Medicine was consulted for critical care management. He underwent a cardiac catheterization by Dr. 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 He was seen by vascular surgery on 05/08/2018 as the patient developed right groin hematoma post-cardiac catheterization. He had an ultrasound of the lower extremity which showed no evidence of pseudoaneurysm; small hematoma adjacent to the common femoral vein measuring about 2 cm in diameter. When seen postop, patient was on Precedex at 0.3, Silverio-Synephrine currently at 60 mcg, dopamine at 5 mcg with a current blood pressure 97/44, with a heart rate of 49. He was cardioverted in the OR to sinus deshawn. Chest x-ray postop showed mild prominence in the mediastinum. 05/12 Patient was extubated yesterday On Dopamine 5 mics and Neosyn 10 mics. Afebrile. Subjective: 05/13: Patient requesting pain pills for back pain. Currently on a dopamine drip at 2.5mcg/kg/min. Afebrile. Tolerating cardiac and diabetic diet. Objective Vital Signs / I&O: Vital Signs 05/12/18 09:22 05/12/18 11:00 05/12/18 13:49 Temperature 98.4 F Pulse Rate 76 65 89 Respiratory Rate 18 12 18 Blood Pressure 107/53 L Pulse Oximetry 97 98 05/12/18 15:00 05/12/18 16:56 05/12/18 19:00 Temperature 98.6 F 98.0 F Pulse Rate 70 67 Respiratory Rate 14 14 20 Blood Pressure 95/49 L 111/56 L Pulse Oximetry 97 98 05/12/18 19:48 05/12/18 20:00 05/12/18 23:00 Temperature 98.2 F Pulse Rate 64 64 Respiratory Rate 14 20 Blood Pressure 113/68 Pulse Oximetry 97 98 94 L 05/12/18 23:10 05/13/18 03:00 05/13/18 07:33 Temperature 98.0 F Pulse Rate 62 62 68 Respiratory Rate 20 18 Blood Pressure 123/69 Pulse Oximetry 97 98 Intake & Output 05/12/18 05/13/18 05/13/18 18:59 06:59 18:59 Intake Total 2202 / 2202 860 / 860 Output Total 170 / 170 635 / 635 Balance 2031 / 2031 225 / 225 Weight 76.5 kg Intake: IV 782 / 782 620 / 620 Intropin Inj 800 MG In NS Inj 520 / 520 500 ML @ 3 MCG/KG/MIN 8.24 mls/ hr IV.CONT TITRATE PRN Rx#: [id number] Precedex Inj 200 MCG In NS Inj 0 / 0 48 ML @ 0.2 MCG/KG/HR 3.52 mls/ hr IV.CONT TITRATE PRN Rx#: [id number] NovoLIN R (IV Infusion) 100 32 / 32 UNIT In NS Inj 99 ML @ 3 UNITS/ HR 3 mls/hr IV.CONT TITRATE PRN Rx#:[id number] Ofirmev Inj 1,000 mg In 100 ml 100 / 100 @ 400 mls/hr IV.SIG Q6H [facility] Rx# :[id number] Calcium Chloride Inj 1 GM In NS 100 / 100 Inj 100 ML @ 100 mls/hr IV.SIG PRN PRN Rx#:[id number] LR 1000 mL Inj 250 ML @ Wide 250 / 250 Open IV.SIG .Q0M [facility] Rx#: [id number] Magnesium Sulfate 1 gm/D5W 100 100 / 100 ml Premix 100 ML @ 100 mls/hr IV.SIG ONCE ONE Rx#:[id number] Ancef Inj 2,000 MG In NS Inj 80 200 / 200 100 / 100 ML @ 200 mls/hr IV.SIG Q8H [facility] Rx#:[id number] Oral 720 / 720 240 / 240 Other 700 / 700 Output: Urine 525 / 525 Chest Tube Drainage 170 / 170 110 / 110 #1Y and #2Y Right Pleural/ 170 / 170 110 / 110 Mediastinal Y Connected Other: Other Intake Source Saline Solution Result Diagrams: 05/13/18 04:35 05/13/18 04:35 Imaging: Chest CT 05/04/18 00:00 CONCLUSION: 1. There is a 1.6 cm focal infiltrate versus mass density in the peripheral right upper lung. This may be a focal inflammatory process versus mass. There are no prior studies for comparison. If this does not resolve after appropriate medical therapy, a PET CT could be performed for further evaluation. 2. There is aneurysmal dilatation of the infrarenal abdominal aorta measuring 4.4 x 4.4 cm. There is diffuse atherosclerotic changes throughout the thoracic and abdominal aorta. 3. Short segment focal moderate to possibly high-grade stenosis involving the proximal segment of the left renal artery. Carotid Doppler Study 05/05/18 15:43 CONCLUSION: Calcified atherosclerotic plaque bilaterally slightly more abundant on the left without a hemodynamically significant stenosis involving either carotid artery. Antegrade flow involving both vertebral arteries. Lower Extremity Ultrasound 05/05/18 15:43 CONCLUSION: 1. Venous mapping as above. 2. Nonvisualization of the greater saphenous throughout the right calf. Nonvisualization of the greater saphenous in the mid and distal portions of the left calf. Venous Doppler Study 05/05/18 15:43 CONCLUSION: Negative exam. No sonographic or Doppler findings of deep venous thrombosis. Chest X-Ray 05/06/18 00:00 CONCLUSION: 1. Senescent changes with mild atelectasis/scarring at the lung bases. Lower Extremity Ultrasound 05/08/18 00:00 CONCLUSION: 1. Negative for pseudoaneurysm. Small hematoma adjacent to the common femoral vein measuring about 2 cm in diameter. Chest X-Ray 05/11/18 11:55 CONCLUSION: Support apparatus in good position. Mild prominence the mediastinum. Chest X-Ray 05/12/18 05:00 CONCLUSION: 1. Interim extubation and nasogastric tube removal. 2. Other lines and tubes unchanged, including a mediastinal drain and left chest tube. No pneumothorax. 3. Slightly improved bilateral atelectasis. Objective Remarks: GENERAL: Patient is 87 yo lying in bed in NAD on nasal cannula SKIN: Warm and dry. HEAD: Normocephalic. EYES: No scleral icterus. No injection or drainage. NECK: Supple, trachea midline. No JVD or lymphadenopathy. CARDIOVASCULAR: Regular rate and rhythm without murmurs, gallops, or rubs. RESPIRATORY: Breath sounds equal bilaterally. No accessory muscle use. GASTROINTESTINAL: Abdomen soft, non-tender, nondistended. MUSCULOSKELETAL: No no peripheral edema. KEEGAN hose in place. Bilaterally. Neuro: Awake and alert Assessment and Plan - Assessment and Plan Plan: 1. Resp Insuff s/p extubation 05/11 2. S/p CABG x3 off-pump. 3. Severe aortic stenosis. 4. Multivessel coronary artery disease. 5. Atrial fibrillation. 6. History of hypertension. 7. Hyperlipidemia. 8. 1.6 cm infiltrate versus mass density in the peripheral right upper lung. 9. Infrarenal abdominal aortic aneurysm; 4.4 cm x 4.4 cm. 10. Leukocytosis 11. Normocytic anemia 12. Thrombocytopenia 13. Glaucoma Plan Neuro: Monitor neuro status, avoid sedatives. On benefit 650 every 4, tramadol 50 mg every 6 hours as needed pain 1 through 10 and oxycodone/acetaminophen 1 tablet every 4 hours as needed pain 1 through 4. Management per neurosurgery Continue latanoprost 0.005% 1 drop each eye at night and torsemide/ dorzolamide/timolol 2/0.5 for glaucoma Pulm: Continue with oxygen and maintain sats>92%. Currently on 3 L 0/ipratropium aerosols every 6 hours while awake with every 2 hours as needed dyspnea, incentive spirometry CXR ordered 05/14: Slightly improved bilateral atelectasis CV: Wean off pressors ( On Dopamine 2.5 mcg/kg/min) Monitor HR and BP maintain MAP> 65 mmHg. Holding diltiazem 120 mg daily while on vasopressors. Continue pravastatin 40 mg daily for hyperlipidemia. s/p cardiac cath 05/04: severe , multivessel disease, normal filling pressures and normal cardiac output/cardiac index. Monitor chest tube drainage. Chest tube management per CT Surgery. Continue with aspirin 81 mg daily, clopidogrel 75 mg daily Evaluated by EP cardiology. No indication for AV conduction evaluation per their notes : Monitor renal function, I's and O's and electrolyte replacement per protocol. ID: Perioperative antibiotics per CT Surgery. Has completed cefazolin. Monitor for signs of infection,(fever and WBC). Repeat CBC GI: Protonix 40 mg daily. Endo: SSI for Glycemic control. With aspart insulin before meals at bedtime Heme: Monitor CBC. Follow trends. No indication for transfusion of blood products at this time. GI prophylaxis with Protonix 40 mg daily DVT prophylaxis with SCD IV access; right IJ CVP placed 05/11 Level 3
[2018-05-13] MEDS: Multivitamin/Minerals Therapeutic Tablet PO SCH (09:28)
[2018-05-13] MEDS: Docusate Sodium 100 MG Capsule PO SCH ×2 (09:29→20:32)
[2018-05-13] MEDS: Dorzolamide-Timolol 2/0.5% Opth Drops 10 ML Bottle EACH EYE SCH ×2 (09:31→20:38)
[2018-05-13] MEDS: Polyethylene Glycol 3350 17 GM Packet PO SCH (09:32)
[2018-05-13] MEDS: Ferrous Sulfate 325 MG Tablet PO SCH ×2 (11:28→18:03)
--- NOTE | 2018-05-13 12:37 | MB ---
cc: Alfred Fajardo MD DATE: 05/12/2018 REASON FOR CONSULTATION: Lung nodule. HISTORY OF PRESENT ILLNESS: This is an 87-year-old white male with a history of severe aortic valve stenosis and multivessel coronary artery disease, hyperlipidemia, hypertension, prostate cancer and underwent a CABG x3 by Dr. Tran. The patient had initially undergone a cardiac catheterization on 05/04/2018, which showed stenosis of the distal main and the right coronary arteries and aortic valve stenosis as well. Following the CABG, the patient was in the intensive care unit and has been extubated off the ventilator and is on pressors including Silverio-Synephrine and dopamine. His chest x-ray did show some evidence of vascular prominence. He subsequently underwent CT of the chest and the CT chest reportedly showed evidence of a nodular infiltrate in the right upper lobe measuring 1.6 cm and needed further followup; also had infrarenal abdominal aortic aneurysm 4.4 cm. Presently, the patient is alert and having some shortness of breath at rest and is on oxygen via nasal cannula at 5 liters. PAST MEDICAL HISTORY: Significant for atrial fibrillation, abdominal aortic aneurysm, hypertension, hyperlipidemia, cancer of the prostate and sick sinus. SOCIAL HISTORY: The patient smoked for about 5 years; less than a pack a day. Occasional alcohol use. FAMILY HISTORY: Noncontributory. ALLERGIES: NONE LISTED. MEDICATIONS: Medications list was reviewed from the chart. REVIEW OF SYSTEMS: The patient is unable to answer all questions. He has some chest tightness and he has some wheezing and cough, and also has mild leg swelling. The patient denies any calf muscle pains. No urinary symptoms. No anxiety, no depression. PHYSICAL EXAMINATION: GENERAL: This is an averagely built, elderly man who is awake and in no acute distress. VITAL SIGNS: Blood pressure 120/60, pulse is 70, respirations 16, temperature 97.5. HEENT: Head is normocephalic. Pupils are reactive. Sclerae are clear. Throat is clear. Nasal mucosa injected. NECK: Supple, no bruits or thyroid enlargement or lymphadenopathy. CHEST: Equal movements with a few coarse wheezes scattered throughout both lung fleming with occasional basal crackles. HEART: Sounds were irregular. S1 and S2 with a systolic apical murmur 2/6. ABDOMEN: Soft, obese without masses. No organomegaly or tenderness. Bowel sounds are active. EXTREMITIES: With minimal edema and decreased peripheral pulses. Reflexes are 1+ with no gross motor deficits. NEUROLOGIC: Cranial nerves grossly intact. SKIN: Cool and dry. IMPRESSION: 1. Status post coronary artery bypass graft x3 with acute postoperative respiratory insufficiency. 2. Right upper lobe lung nodule, etiology undetermined. 3. Mild pulmonary edema. 4. Severe aortic valve stenosis. 5. History of hypertension. 6. Atrial fibrillation. PLAN: The patient has been placed on O2 at 4 liters. Incentive spirometry started every 2 hours. Nebulized albuterol and Atrovent solution q.i.d. p.r.n. and a followup chest x-ray to be done. The nodule in the right lung needs outpatient followup with a PET CT when is clinically stable and his chest wound has healed. We will also get a pulmonary function study when it is feasible to do that. The patient will be weaned down on the oxygen as tolerated. Pressors to be weaned down as well. Thank you Dr. Salvador for this consultation. VAyaka Fajardo MD VREZA/chalo , 12:00 PM , 12:15 PM
--- NOTE | 2018-05-13 13:03 | P.PNCV ---
- Note Subjective/Hospital Course: 87/ male history of aortic stenosis, presented to Dr. Nunn's office for a transcatheter aortic valve consultation. His aortic valve area is now 0.7 cm with a mean gradient of 48 mmHg. He has been somewhat sedentary, but is still able to do some housework and yard work. He underwent cardiac catheterization today for further evaluation, which showed a 90% distal stenosis in the left main coronary artery at the bifurcation of the LAD and the left circumflex artery. 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 The mid coronary artery had 75% calcific stenosis. Right-sided heart catheterization, showed a right atrial pressure of 7 mmHg, pulmonary artery pressure of 28/8, a wedge pressure of 9, cardiac output of 3.9 with an index of 2.2. We were consulted to evaluate for possible aortic valve replacement in combination with coronary artery bypass grafting versus transcatheter aortic valve replacement and high-risk PCI with Impella ventricular assist device placement. PAST MEDICAL HISTORY: chronic atrial fibrillation, history of abdominal aortic aneurysm without rupture, aortic stenosis, cervical radiculopathy, history of CVA in the past, hypertension and hyperlipidemia. He is legally blind. He has some central vision. Coumadin therapy, osteoarthritis, history of prostate cancer treated with resection 11 years ago, history of sick sinus syndrome. 05/05 pt now at bedside, further discussion with pt and and Dr Nunn in regards to treatment options Dr Tran will discuss final plans with and pt this afternoon 05/06 pt and agreeable for surgery on Friday venous mapping : nonvisualization of greater saphenous throughout the right calf , nonvisualization of greater saphenous in the mid and distal portions of left calf CT chest aneurysmal dilatation of infrarenal abdominal aorta 4.4x4.4cm 1.6 cm focal infiltrate vs mass peripheral right upper lung 05/07 pt denies any chest pain or SOB stable for surgery in am 05/08 OR cancelled today 2/2 hematoma right groin appreciate vascular input Lower ext ultrasound : CONCLUSION: 1. Negative for pseudoaneurysm. Small hematoma adjacent to the common femoral vein measuring about 2 cm in diameter. rescheduled for Friday spoke with pt and no limb ischemia 05/09 Clinically and hemodynamically stable Ultrasound reviewed Greatly appreciate Dr. Bliss's input Plan OR 05/10 Remains stable OR tomorrow 05/11 surgery PREPROCEDURE DIAGNOSES 1. Severe Multi Vessel Coronary Artery Disease. 2. Severe aortic stenosis 3. Atrial fibrillation POSTPROCEDURE DIAGNOSES 1. Severe Multi Vessel Coronary Artery Disease. 2. Severe aortic stenosis 3. 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 Urgent Clampless off-pump Coronary Artery Bypass Grafting x 3 with Left Internal Mammary Artery (BANKS) to Left Anterior Descending (LAD), reverse saphenous vein graft to obtuse Marginal branch of the left Circumflex artery, reverse saphenous vein graft to the right Coronary artery 2. Left leg Endoscopic Vein [place] 3. Intraoperative Vein Mapping. extubated after surgery crystalloid 3000cc, 650cc cell saver 05/12 on 5 liter nasal cannula intermittently paced last pm intermittent Afib with rate 60-70 pt will need to have workup for TAVR at a later date lactic acid 0.9 weaning off Silverio gtt / on 5 mcq of Dopamine on 5 liter nasal cannula intermittently paced last pm intermittent Afib with rate 60-70/ consult placed with Dr Millan on ASA, Plavix, no BB , amiodarone or CCB/ dc toradol leave in CVICU for now 05/13 off all pressors , feels fair , somewhat painful no BB or amiodarone for now remains in NSR / eval for chest tube removal later today ambulate , wean 02 resume coumadin when chest tubes out transfer to stepdown Objective: Vital Signs - 24 hr 05/12/18 13:49 05/12/18 15:00 05/12/18 16:56 Temperature 98.6 F Pulse Rate 89 70 Respiratory Rate 18 14 14 Blood Pressure 95/49 L Pulse Oximetry 97 05/12/18 19:00 05/12/18 19:48 05/12/18 20:00 Temperature 98.0 F Pulse Rate 67 64 Respiratory Rate 20 14 Blood Pressure 111/56 L Pulse Oximetry 98 97 98 05/12/18 23:00 05/12/18 23:10 05/13/18 03:00 Temperature 98.2 F 98.0 F Pulse Rate 64 62 62 Respiratory Rate 20 20 Blood Pressure 113/68 123/69 Pulse Oximetry 94 L 97 05/13/18 07:00 05/13/18 07:33 05/13/18 08:00 Temperature 98.8 F Pulse Rate 61 68 Respiratory Rate 16 18 Blood Pressure 112/62 Pulse Oximetry 97 98 97 Labs: Laboratory Results - last 12 hr 05/10/18 05/13/18 05/13/18 08:00 02:47 04:35 WBC 17.0 H RBC 2.74 L Hgb 8.6 L Hct 25.4 L MCV 92.8 MCH 31.2 MCHC 33.7 RDW 13.9 Plt Count 120 L MPV 8.7 Neut % (Auto) 82.7 H Lymph % (Auto) 7.7 L [place] % (Auto) 9.1 H Eos % (Auto) 0.1 Baso % (Auto) 0.4 Neut # (Auto) 14.0 H Lymph # (Auto) 1.3 [place] # (Auto) 1.5 H Eos # (Auto) 0.0 Baso # (Auto) 0.1 WBC Differential . Differential Comment Auto diff final Sodium Potassium Chloride Carbon Dioxide Anion Gap BUN Creatinine Estimated GFR POC Glucose 157 H Random Glucose Calcium Magnesium MTS Gel Crossmatch See Detail 05/13/18 05/13/18 05/13/18 04:35 06:13 11:11 WBC RBC Hgb Hct MCV MCH MCHC RDW Plt Count MPV Neut % (Auto) Lymph % (Auto) [place] % (Auto) Eos % (Auto) Baso % (Auto) Neut # (Auto) Lymph # (Auto) [place] # (Auto) Eos # (Auto) Baso # (Auto) WBC Differential Differential Comment Sodium 140 Potassium 4.3 Chloride 108 H Carbon Dioxide 26.9 Anion Gap 5 BUN 18 Creatinine 0.76 Estimated GFR Greater than 89 POC Glucose 142 H 104 Random Glucose 103 Calcium 8.1 L Magnesium 2.3 MTS Gel Crossmatch Result Diagrams: 05/13/18 04:35 05/13/18 04:35 Telemetry: nsr - Plan (1) S/P CABG (coronary artery bypass graft) Plan: ASA, plavix AV will need to be addressed as a TAVR workup at later date (4-6weeks ) no BB , no amiodarone 2/2 bradycardia / IMPROVED / appreciate Dr Millan input , no need for AV claudia workup for now off pressors OOB to chair later this am pulm toileting eval for rehab at discharge (4) Atrial fibrillation Plan: resume coumadin when chest tubes out (5) Legally blind Plan: may need rehab
--- NOTE | 2018-05-13 18:09 | P.PN ---
Subjective Interval history: Up in a chair and seems better. C/O constipation. On O2 3L. Good output and off pressors. Physical Exam Vital signs: Vital Signs 05/12/18 19:00 05/12/18 19:48 05/12/18 20:00 Temperature 98.0 F Pulse Rate 67 64 Respiratory Rate 20 14 Blood Pressure 111/56 L Pulse Oximetry 98 97 98 05/12/18 23:00 05/12/18 23:10 05/13/18 03:00 Temperature 98.2 F 98.0 F Pulse Rate 64 62 62 Respiratory Rate 20 20 Blood Pressure 113/68 123/69 Pulse Oximetry 94 L 97 05/13/18 07:00 05/13/18 07:33 05/13/18 08:00 Temperature 98.8 F Pulse Rate 61 68 Respiratory Rate 16 18 Blood Pressure 112/62 Pulse Oximetry 97 98 97 05/13/18 11:00 05/13/18 14:31 05/13/18 15:23 Temperature 98.3 F Pulse Rate 95 H 66 67 Respiratory Rate 17 18 Blood Pressure 141/65 H Pulse Oximetry 98 05/13/18 15:46 05/13/18 16:34 05/13/18 17:08 Temperature 97.9 F Pulse Rate 65 59 L 60 Respiratory Rate 16 Blood Pressure 100/51 L Pulse Oximetry 100 Intake & Output 05/12/18 05/13/18 05/13/18 18:59 06:59 18:59 Intake Total 2202 / 2202 860 / 860 Output Total 170 / 170 635 / 635 Balance 2031 / 2031 225 / 225 Weight 76.5 kg Intake: IV 782 / 782 620 / 620 Intropin Inj 800 MG In NS Inj 520 / 520 500 ML @ 3 MCG/KG/MIN 8.24 mls/ hr IV.CONT TITRATE PRN Rx#: [id number] Precedex Inj 200 MCG In NS Inj 0 / 0 48 ML @ 0.2 MCG/KG/HR 3.52 mls/ hr IV.CONT TITRATE PRN Rx#: [id number] NovoLIN R (IV Infusion) 100 32 / 32 UNIT In NS Inj 99 ML @ 3 UNITS/ HR 3 mls/hr IV.CONT TITRATE PRN Rx#:[id number] Ofirmev Inj 1,000 mg In 100 ml 100 / 100 @ 400 mls/hr IV.SIG Q6H [facility] Rx# :[id number] Calcium Chloride Inj 1 GM In NS 100 / 100 Inj 100 ML @ 100 mls/hr IV.SIG PRN PRN Rx#:[id number] LR 1000 mL Inj 250 ML @ Wide 250 / 250 Open IV.SIG .Q0M [facility] Rx#: [id number] Magnesium Sulfate 1 gm/D5W 100 100 / 100 ml Premix 100 ML @ 100 mls/hr IV.SIG ONCE ONE Rx#:[id number] Ancef Inj 2,000 MG In NS Inj 80 200 / 200 100 / 100 ML @ 200 mls/hr IV.SIG Q8H [facility] Rx#:[id number] Oral 720 / 720 240 / 240 Other 700 / 700 Output: Urine 525 / 525 Chest Tube Drainage 170 / 170 110 / 110 #1Y and #2Y Right Pleural/ 170 / 170 110 / 110 Mediastinal Y Connected Other: Other Intake Source Saline Solution GENERAL: Elderly W/M in no distress. SKIN: Warm and dry. HEAD: Atraumatic. Normocephalic. EYES: Pupils equal and round. No scleral icterus. No injection or drainage. ENT: No nasal bleeding or discharge. Mucous membranes pink and moist. NECK: Trachea midline. No JVD. CARDIOVASCULAR: Regular rate and rhythm. RESPIRATORY: No accessory muscle use. Occ Basal crackles. Breath sounds equal bilaterally. GASTROINTESTINAL: Abdomen soft, non-tender, nondistended. Hepatic and splenic margins not palpable. MUSCULOSKELETAL: Extremities without clubbing, cyanosis, but has edema. No obvious deformities. NEUROLOGICAL: Awake and alert. No obvious cranial nerve deficits. Motor grossly within normal limits. Five out of 5 muscle strength in the arms and legs. Normal speech. PSYCHIATRIC: Appropriate mood and affect; insight and judgment normal. - Urinary Catheter Management Indwelling Temp Sensing Catheter Cath placed during this visit: yes, but has since been removed by the nurse Reason for continuing: Not indwelling catheter Insertion date: 05/11/18 Insertion time: 07:40 Removal date: 05/12/18 Removal time: 06:30 Results - Labs CBC & Chem 7: 05/13/18 04:35 05/13/18 04:35 Laboratory Results - last 24 hr 05/10/18 05/12/18 05/13/18 08:00 23:18 02:47 WBC RBC Hgb Hct MCV MCH MCHC RDW Plt Count MPV Neut % (Auto) Lymph % (Auto) [place] % (Auto) Eos % (Auto) Baso % (Auto) Neut # (Auto) Lymph # (Auto) [place] # (Auto) Eos # (Auto) Baso # (Auto) WBC Differential Differential Comment Sodium Potassium Chloride Carbon Dioxide Anion Gap BUN Creatinine Estimated GFR POC Glucose 114 H 157 H Random Glucose Calcium Magnesium MTS Gel Crossmatch See Detail 05/13/18 05/13/18 05/13/18 04:35 04:35 06:13 WBC 17.0 H RBC 2.74 L Hgb 8.6 L Hct 25.4 L MCV 92.8 MCH 31.2 MCHC 33.7 RDW 13.9 Plt Count 120 L MPV 8.7 Neut % (Auto) 82.7 H Lymph % (Auto) 7.7 L [place] % (Auto) 9.1 H Eos % (Auto) 0.1 Baso % (Auto) 0.4 Neut # (Auto) 14.0 H Lymph # (Auto) 1.3 [place] # (Auto) 1.5 H Eos # (Auto) 0.0 Baso # (Auto) 0.1 WBC Differential . Differential Comment Auto diff final Sodium 140 Potassium 4.3 Chloride 108 H Carbon Dioxide 26.9 Anion Gap 5 BUN 18 Creatinine 0.76 Estimated GFR Greater than 89 POC Glucose 142 H Random Glucose 103 Calcium 8.1 L Magnesium 2.3 MTS Gel Crossmatch 05/13/18 05/13/18 11:11 17:58 WBC RBC Hgb Hct MCV MCH MCHC RDW Plt Count MPV Neut % (Auto) Lymph % (Auto) [place] % (Auto) Eos % (Auto) Baso % (Auto) Neut # (Auto) Lymph # (Auto) [place] # (Auto) Eos # (Auto) Baso # (Auto) WBC Differential Differential Comment Sodium Potassium Chloride Carbon Dioxide Anion Gap BUN Creatinine Estimated GFR POC Glucose 104 162 H Random Glucose Calcium Magnesium MTS Gel Crossmatch Assessment and Plan - Assessment (1) Atelectasis Code(s): J98.11 - Atelectasis Status: Acute (2) Lung nodule, solitary Code(s): R91.1 - Solitary pulmonary nodule Status: Acute (3) Severe aortic stenosis Code(s): I35.0 - Nonrheumatic aortic (valve) stenosis Status: Acute (4) Coronary artery disease Code(s): I25.10 - Atherosclerotic heart disease of [place] coronary artery without angina pectoris Status: Acute (5) Atrial fibrillation Code(s): I48.91 - Unspecified atrial fibrillation Status: Acute (6) Legally blind Code(s): H54.8 - Legal blindness, as defined in [place] Status: Acute (7) Groin hematoma Code(s): S30.1XXA - Contusion of abdominal wall, initial encounter Status: Acute (8) S/P CABG (coronary artery bypass graft) Code(s): Z95.1 - Presence of aortocoronary bypass graft Status: Acute - Plan 1. Continue O2 2 L. 2. Nebs qid , duoneb 3. Continue IS q2h. 4. CBC,BMP CXR in am. 5. Chest tube to drain.
[2018-05-13] MEDS: Latanoprost 0.005% Opth Drops 2.5 ML Bottle EACH EYE SCH (20:32)
[2018-05-14] MEDS ORDERED: Amiodarone Inj 150 MG in Dextrose 5% in Water Inj 100 ML IV.SIG SCH ×2 (04:35)
--- NOTE | 2018-05-14 05:16 | XR ---
EXAM DATE: 05/14/2018 4:37 AM EDT AGE/SEX: 87 years / Male INDICATIONS: Shortness of breath, possible pulmonary disease. CLINICAL DATA: This is the patient's subsequent encounter. Patient reports that signs and symptoms h ave been present for 1 week and indicates a pain score of 5/10. MEDICAL/SURGICAL HISTORY: Aneurysm, abdominal. Carcinoma, prostatic. Hypertension. A-fib. CABG. COMPAR[place]: [facility] [place] [facility] [place]/2018. . FINDINGS: Changes of recent median sternotomy again noted. Bibasilar consolidation with small right and small-t o-moderate left pleural effusions are present and both sides are slightly worse in the interim. I don 't see a pneumothorax. Mediastinal drain and left chest tube remain in place. There is a right internal jugular central veno us catheter with tip in the superior vena cava. CONCLUSION: Worsening left greater than right consolidation and small effusions at the lung bases. No pneumothora x. Electronically signed by: Calvin Mancini MD 05/14/2018 5:15 AM EDT
[2018-05-14 07:11] LABS: Baso # (Auto) 0.1 th/mm3 (0.0-0.2); Baso % (Auto) 0.5 % (0.0-2.0); Eos # (Auto) 0.2 th/mm3 (0.0-0.4); Eos % (Auto) 1.4 % (0.0-4.0); Hematocrit 25.9 % (39.0-51.0); Hemoglobin 8.8 gm/dL (13.0-17.0); Lymph # (Auto) 1.4 th/mm3 (1.0-4.8); Lymph % (Auto) 10.8 % (9.0-44.0); Mean Corpuscular Hemoglobin 31.5 pg (27.0-34.0); Mean Corpuscular Volume 92.6 fL (80.0-100.0); Mono # (Auto) 1.4 th/mm3 (0.0-0.9); Mono % (Auto) 10.3 % (0.0-8.0); Neut # (Auto) 10.3 th/mm3 (1.8-7.7); Platelet Count 126 th/mm3 (150-450); Red Cell Distribution Width 14.2 % (11.6-17.2); White Blood Count 13.3 th/mm3 (4.0-11.0)
[2018-05-14 07:17] LABS: Prothrombin Time 10.4 sec (9.8-11.6)
[2018-05-14 07:47] LABS: Anion Gap 8 meq/L (5-15); Blood Urea Nitrogen 18 mg/dL (7-18); Calcium 8.1 mg/dL (8.5-10.1); Carbon Dioxide 27.5 meq/L (21.0-32.0); Chloride 107 meq/L (98-107); Glomerular Filtration Rate Greater Than 89 mL/min (>89); Glucose,Random 85 mg/dL (74-106); Magnesium 2.4 mg/dL (1.5-2.5); Potassium 4.3 meq/L (3.5-5.1); Sodium 142 meq/L (136-145)
[2018-05-14] MEDS: Sod Chloride 0.9% Inj 1,000 ML IV.CONT SCH ×3 (09:04→09:10)
[2018-05-14] MEDS: Insulin NovoLOG Aspart Correctional Sugar Inj SQ SCH ×4 (09:05→23:20)
[2018-05-14] MEDS: Polyethylene Glycol 3350 17 GM Packet PO SCH (09:06)
[2018-05-14] MEDS: Multivitamin/Minerals Therapeutic Tablet PO SCH (09:06)
[2018-05-14] MEDS: Docusate Sodium 100 MG Capsule PO SCH ×2 (09:06→23:16)
[2018-05-14] MEDS: Dorzolamide-Timolol 2/0.5% Opth Drops 10 ML Bottle EACH EYE SCH ×2 (09:08→23:19)
--- NOTE | 2018-05-14 12:15 | P.PNCV ---
- Note Subjective/Hospital Course: 87/ male history of aortic stenosis, presented to Dr. Nunn's office for a transcatheter aortic valve consultation. His aortic valve area is now 0.7 cm with a mean gradient of 48 mmHg. He has been somewhat sedentary, but is still able to do some housework and yard work. He underwent cardiac catheterization today for further evaluation, which showed a 90% distal stenosis in the left main coronary artery at the bifurcation of the LAD and the left circumflex artery. 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 The mid coronary artery had 75% calcific stenosis. Right-sided heart catheterization, showed a right atrial pressure of 7 mmHg, pulmonary artery pressure of 28/8, a wedge pressure of 9, cardiac output of 3.9 with an index of 2.2. We were consulted to evaluate for possible aortic valve replacement in combination with coronary artery bypass grafting versus transcatheter aortic valve replacement and high-risk PCI with Impella ventricular assist device placement. PAST MEDICAL HISTORY: chronic atrial fibrillation, history of abdominal aortic aneurysm without rupture, aortic stenosis, cervical radiculopathy, history of CVA in the past, hypertension and hyperlipidemia. He is legally blind. He has some central vision. Coumadin therapy, osteoarthritis, history of prostate cancer treated with resection 11 years ago, history of sick sinus syndrome. 05/05 pt now at bedside, further discussion with pt and and Dr Nunn in regards to treatment options Dr Tran will discuss final plans with and pt this afternoon 05/06 pt and agreeable for surgery on Friday venous mapping : nonvisualization of greater saphenous throughout the right calf , nonvisualization of greater saphenous in the mid and distal portions of left calf CT chest aneurysmal dilatation of infrarenal abdominal aorta 4.4x4.4cm 1.6 cm focal infiltrate vs mass peripheral right upper lung 05/07 pt denies any chest pain or SOB stable for surgery in am 05/08 OR cancelled today 2/2 hematoma right groin appreciate vascular input Lower ext ultrasound : CONCLUSION: 1. Negative for pseudoaneurysm. Small hematoma adjacent to the common femoral vein measuring about 2 cm in diameter. rescheduled for Friday spoke with pt and no limb ischemia 05/09 Clinically and hemodynamically stable Ultrasound reviewed Greatly appreciate Dr. Bliss's input Plan OR 05/10 Remains stable OR tomorrow 05/11 surgery PREPROCEDURE DIAGNOSES 1. Severe Multi Vessel Coronary Artery Disease. 2. Severe aortic stenosis 3. Atrial fibrillation POSTPROCEDURE DIAGNOSES 1. Severe Multi Vessel Coronary Artery Disease. 2. Severe aortic stenosis 3. 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 Urgent Clampless off-pump Coronary Artery Bypass Grafting x 3 with Left Internal Mammary Artery (BANKS) to Left Anterior Descending (LAD), reverse saphenous vein graft to obtuse Marginal branch of the left Circumflex artery, reverse saphenous vein graft to the right Coronary artery 2. Left leg Endoscopic Vein Zoe 3. Intraoperative Vein Mapping. extubated after surgery crystalloid 3000cc, 650cc cell saver 05/12 on 5 liter nasal cannula intermittently paced last pm intermittent Afib with rate 60-70 pt will need to have workup for TAVR at a later date lactic acid 0.9 weaning off Silverio gtt / on 5 mcq of Dopamine on 5 liter nasal cannula intermittently paced last pm intermittent Afib with rate 60-70/ consult placed with Dr Millan on ASA, Plavix, no BB , amiodarone or CCB/ dc toradol leave in CVICU for now 05/13 off all pressors , feels fair , somewhat painful no BB or amiodarone for now remains in NSR / eval for chest tube removal later today ambulate , wean 02 resume coumadin when chest tubes out transfer to [facility] 05/14 went into afib RVR this am , short period add low dose BB chest tubes dc resume coumadin today, dc CVC line wean 02 as tolerated Objective: Vital Signs - 24 hr 05/13/18 14:31 05/13/18 15:23 05/13/18 15:46 Temperature 97.9 F Pulse Rate 66 67 65 Respiratory Rate 18 16 Blood Pressure 100/51 L Pulse Oximetry 100 05/13/18 16:34 05/13/18 17:08 05/13/18 18:05 Temperature Pulse Rate 59 L 60 71 Respiratory Rate Blood Pressure Pulse Oximetry 05/13/18 19:00 05/13/18 20:00 05/13/18 21:00 Temperature 97.9 F Pulse Rate 69 62 64 Respiratory Rate 20 18 Blood Pressure 141/63 H Pulse Oximetry 99 99 05/13/18 22:00 05/13/18 23:00 05/14/18 00:00 Temperature 97.8 F Pulse Rate 56 L 57 L 64 Respiratory Rate 20 Blood Pressure 129/60 Pulse Oximetry 98 05/14/18 01:00 05/14/18 02:00 05/14/18 03:00 Temperature 98.1 F Pulse Rate 62 60 58 L Respiratory Rate 16 Blood Pressure 138/63 Pulse Oximetry 98 05/14/18 04:00 05/14/18 05:00 05/14/18 06:00 Temperature Pulse Rate 60 72 78 Respiratory Rate Blood Pressure Pulse Oximetry 05/14/18 07:00 05/14/18 10:02 Temperature 97.9 F Pulse Rate 86 66 Respiratory Rate 19 18 Blood Pressure 154/74 H Pulse Oximetry 97 GENERAL: A&O x 3 SKIN: Warm and dry. prevena dressing to chest , incision intact to lef tleg HEAD: Normocephalic. EYES: No scleral icterus. No injection or drainage. NECK: Supple, trachea midline. No JVD or lymphadenopathy. CARDIOVASCULAR: irregular rate and rhythm without murmurs, gallops, or rubs. RESPIRATORY: Breath sounds equal bilaterally. No accessory muscle use. diminished in bases , chest tube dc without difficulty GASTROINTESTINAL: Abdomen soft, non-tender, nondistended. MUSCULOSKELETAL: No cyanosis, or edema. BACK: Nontender without obvious deformity. No CVA tenderness. Labs: Laboratory Results - last 12 hr 05/14/18 05/14/18 05/14/18 06:15 06:15 06:15 WBC 13.3 H RBC 2.80 L Hgb 8.8 L Hct 25.9 L MCV 92.6 MCH 31.5 MCHC 34.0 RDW 14.2 Plt Count 126 L MPV 9.0 Neut % (Auto) 77.0 H Lymph % (Auto) 10.8 [place] % (Auto) 10.3 H Eos % (Auto) 1.4 Baso % (Auto) 0.5 Neut # (Auto) 10.3 H Lymph # (Auto) 1.4 [place] # (Auto) 1.4 H Eos # (Auto) 0.2 Baso # (Auto) 0.1 WBC Differential . Differential Comment Auto diff final PT 10.4 INR 1.0 Sodium 142 Potassium 4.3 Chloride 107 Carbon Dioxide 27.5 Anion Gap 8 BUN 18 Creatinine 0.79 Estimated GFR Greater than 89 POC Glucose Random Glucose 85 Calcium 8.1 L Magnesium 2.4 05/14/18 08:12 WBC RBC Hgb Hct MCV MCH MCHC RDW Plt Count MPV Neut % (Auto) Lymph % (Auto) [place] % (Auto) Eos % (Auto) Baso % (Auto) Neut # (Auto) Lymph # (Auto) [place] # (Auto) Eos # (Auto) Baso # (Auto) WBC Differential Differential Comment PT INR Sodium Potassium Chloride Carbon Dioxide Anion Gap BUN Creatinine Estimated GFR POC Glucose 111 H Random Glucose Calcium Magnesium Result Diagrams: 05/14/18 06:15 05/14/18 06:15 - Plan (1) S/P CABG (coronary artery bypass graft) Plan: ASA, plavix AV will need to be addressed as a TAVR workup at later date (4-6weeks ) low dose BB , / appreciate Dr Millan input , no need for AV claudia workup for now chest tube dc without difficulty OOB to chair later this am pulm toileting eval for rehab at discharge (3) Coronary artery disease Plan: for surgery on Friday cnacelled today 2/2 hematoma right groin US no pseudoaneurysm superficial hematoma ASA, CCB (4) Atrial fibrillation Plan: resume coumadin low dose BB (5) Legally blind Plan: may need rehab
[2018-05-14] MEDS: Metoprolol Tartrate 25 MG Tablet PO SCH ×2 (12:43→23:15)
[2018-05-14] MEDS: Ferrous Sulfate 325 MG Tablet PO SCH ×2 (12:47→17:26)
[2018-05-14] MEDS: Lisinopril 10 MG Tablet PO SCH (12:47)
--- NOTE | 2018-05-14 17:32 | ECG ---
Date Performed: 05/13/2018 Time Performed: 16:05:46 PTAGE: 87 years EKG: CONSIDER ACUTE ST ELEVATION SD Sinus bradycardia Short SC interval Anteroseptal ST elevation, CONSIDER ACUTE INFARCT When compare to previous tracing, ST elevation is somewhat less Pro minent, though still present. Abnormal ECG PREVIOUS TRACING : 05/12/2018 07.59.34 DOCTOR: Phillip Cowart Interpretating Date/Time 05/14/2018 17:31:27
--- NOTE | 2018-05-14 19:20 | P.PN ---
Subjective Interval history: was up in a chair and feels better. On O2 at 3 L. Physical Exam Vital signs: Vital Signs 05/13/18 20:00 05/13/18 21:00 05/13/18 22:00 Temperature Pulse Rate 62 64 56 L Respiratory Rate 18 Blood Pressure Pulse Oximetry 99 05/13/18 23:00 05/14/18 00:00 05/14/18 01:00 Temperature 97.8 F Pulse Rate 57 L 64 62 Respiratory Rate 20 Blood Pressure 129/60 Pulse Oximetry 98 05/14/18 02:00 05/14/18 03:00 05/14/18 04:00 Temperature 98.1 F Pulse Rate 60 58 L 60 Respiratory Rate 16 Blood Pressure 138/63 Pulse Oximetry 98 05/14/18 05:00 05/14/18 06:00 05/14/18 07:00 Temperature 97.9 F Pulse Rate 72 78 83 Respiratory Rate 19 Blood Pressure 154/74 H Pulse Oximetry 97 05/14/18 08:00 05/14/18 09:00 05/14/18 10:00 Temperature Pulse Rate 77 75 80 Respiratory Rate Blood Pressure Pulse Oximetry 05/14/18 10:02 05/14/18 11:00 05/14/18 12:00 Temperature 97.7 F Pulse Rate 66 72 85 Respiratory Rate 18 20 Blood Pressure 134/60 Pulse Oximetry 94 L 05/14/18 13:00 05/14/18 14:00 05/14/18 15:00 Temperature Pulse Rate 72 77 75 Respiratory Rate Blood Pressure Pulse Oximetry 95 05/14/18 16:00 05/14/18 16:49 05/14/18 17:15 Temperature Pulse Rate 78 70 Respiratory Rate 20 Blood Pressure Pulse Oximetry Intake & Output 05/14/18 05/14/18 05/15/18 06:59 18:59 06:59 Intake Total 480 / 480 Output Total 820 / 820 Balance -340 / -340 Weight 76 kg Intake: Oral 480 / 480 Output: Urine 800 / 800 Chest Tube Drainage 20 / 20 #1Y and #2Y Right Pleural/ 20 / 20 Mediastinal Y Connected GENERAL: Elderly W/M alert.NAD SKIN: Warm and dry. HEAD: Atraumatic. Normocephalic. EYES: Pupils equal and round. No scleral icterus. No injection or drainage. ENT: No nasal bleeding or discharge. Mucous membranes pink and moist. NECK: Trachea midline. No JVD. CARDIOVASCULAR: Regular rate and rhythm. RESPIRATORY: No accessory muscle use. Occ wheeze.. Breath sounds equal bilaterally. GASTROINTESTINAL: Abdomen soft, non-tender, nondistended. Hepatic and splenic margins not palpable. MUSCULOSKELETAL: Extremities without clubbing, cyanosis, but has edema. No obvious deformities. NEUROLOGICAL: Awake and alert. No obvious cranial nerve deficits. Motor grossly within normal limits. Five out of 5 muscle strength in the arms and legs. Normal speech. PSYCHIATRIC: Appropriate mood and affect; insight and judgment normal. - Urinary Catheter Management Indwelling Temp Sensing Catheter Cath placed during this visit: yes, but has since been removed by the nurse Reason for continuing: Not indwelling catheter Insertion date: 05/11/18 Insertion time: 07:40 Removal date: 05/12/18 Removal time: 06:30 Results - Labs CBC & Chem 7: 05/14/18 06:15 05/14/18 06:15 Laboratory Results - last 24 hr 05/13/18 05/14/18 05/14/18 20:26 06:15 06:15 WBC 13.3 H RBC 2.80 L Hgb 8.8 L Hct 25.9 L MCV 92.6 MCH 31.5 MCHC 34.0 RDW 14.2 Plt Count 126 L MPV 9.0 Neut % (Auto) 77.0 H Lymph % (Auto) 10.8 [place] % (Auto) 10.3 H Eos % (Auto) 1.4 Baso % (Auto) 0.5 Neut # (Auto) 10.3 H Lymph # (Auto) 1.4 [place] # (Auto) 1.4 H Eos # (Auto) 0.2 Baso # (Auto) 0.1 WBC Differential . Differential Comment Auto diff final PT INR Sodium 142 Potassium 4.3 Chloride 107 Carbon Dioxide 27.5 Anion Gap 8 BUN 18 Creatinine 0.79 Estimated GFR Greater than 89 POC Glucose 191 H Random Glucose 85 Calcium 8.1 L Magnesium 2.4 05/14/18 05/14/18 05/14/18 06:15 08:12 17:00 WBC RBC Hgb Hct MCV MCH MCHC RDW Plt Count MPV Neut % (Auto) Lymph % (Auto) [place] % (Auto) Eos % (Auto) Baso % (Auto) Neut # (Auto) Lymph # (Auto) [place] # (Auto) Eos # (Auto) Baso # (Auto) WBC Differential Differential Comment PT 10.4 INR 1.0 Sodium Potassium Chloride Carbon Dioxide Anion Gap BUN Creatinine Estimated GFR POC Glucose 111 H 157 H Random Glucose Calcium Magnesium - Imaging Impressions Chest X-Ray 05/14/18 06:00 CONCLUSION: Worsening left greater than right consolidation and small effusions at the lung bases. No pneumothorax. Assessment and Plan - Assessment (1) Atelectasis Code(s): J98.11 - Atelectasis Status: Acute (2) Lung nodule, solitary Code(s): R91.1 - Solitary pulmonary nodule Status: Acute (3) Severe aortic stenosis Code(s): I35.0 - Nonrheumatic aortic (valve) stenosis Status: Acute (4) Coronary artery disease Code(s): I25.10 - Atherosclerotic heart disease of [place] coronary artery without angina pectoris Status: Acute (5) Atrial fibrillation Code(s): I48.91 - Unspecified atrial fibrillation Status: Acute (6) Legally blind Code(s): H54.8 - Legal blindness, as defined in [place] Status: Acute (7) Groin hematoma Code(s): S30.1XXA - Contusion of abdominal wall, initial encounter Status: Acute (8) S/P CABG (coronary artery bypass graft) Code(s): Z95.1 - Presence of aortocoronary bypass graft Status: Acute - Plan 1. Continue O2 3 L. and wean to Keep sat >92 2. Cont Nebs qid , duoneb 3. Continue IS q2h. 4. CBC,BMP in am. 5. Chest tube out soon 6. Continue Coumadin 4 mg daily
[2018-05-14] MEDS: Latanoprost 0.005% Opth Drops 2.5 ML Bottle EACH EYE SCH (23:15)
[2018-05-15] MEDS: Sod Chloride 0.9% Inj 1,000 ML IV.CONT SCH (08:13)
[2018-05-15] MEDS: Insulin NovoLOG Aspart Correctional Sugar Inj SQ SCH ×2 (08:17→11:16)
--- NOTE | 2018-05-15 08:24 | XR ---
EXAM DATE: 05/15/2018 5:38 AM EDT AGE/SEX: 87 years / Male INDICATIONS: Left chest tube removal CLINICAL DATA: This is the patient's initial encounter. Patient reports that signs and symptoms have been present for 1 day and indicates a pain score of 5/10. MEDICAL/SURGICAL HISTORY: . Aneurysm, abdominal. Carcinoma, prostatic. Hypertension. A-fib. CA BG. COMPARISON: [facility] – [place]ST 1V SINGLE AP, 05/14/2018. . FINDINGS: The cardiac silhouette is enlarged in transverse diameter. Median sternotomy wires are present. There is bilateral lower lobe atelectasis versus pneumonia. Left chest tube has been removed. There is no evidence of pneumothorax. Small bilateral pleural effusions are identified. CONCLUSION: No evidence of pneumothorax following chest tube removal. Electronically signed by: Leon Perez MD 05/15/2018 5:48 AM EDT
[2018-05-15 09:31] LABS: Prothrombin Time 10.5 sec (9.8-11.6)
[2018-05-15] MEDS: Metoprolol Tartrate 25 MG Tablet PO SCH (10:05)
[2018-05-15] MEDS: Multivitamin/Minerals Therapeutic Tablet PO SCH (10:05)
[2018-05-15] MEDS: Lisinopril 10 MG Tablet PO SCH (10:05)
[2018-05-15] MEDS: Docusate Sodium 100 MG Capsule PO SCH (10:06)
[2018-05-15] MEDS: Polyethylene Glycol 3350 17 GM Packet PO SCH (10:07)
[2018-05-15] MEDS: Dorzolamide-Timolol 2/0.5% Opth Drops 10 ML Bottle EACH EYE SCH (10:07)
[2018-05-15] MEDS: Ferrous Sulfate 325 MG Tablet PO SCH (11:14)
--- NOTE | 2018-05-15 13:53 | P.DS ---
Date of admission: 05/05/18 15:34 Primary care physician: No Primary Care Physician Attending physician on discharge: Dominguez Tran Anticipated date of discharge: 05/15/18 Brief History from admission: 87/ male history of aortic stenosis, presented to Dr. Nunn's office for a transcatheter aortic valve consultation. His aortic valve area is now 0.7 cm with a mean gradient of 48 mmHg. He has been somewhat sedentary, but is still able to do some housework and yard work. He underwent cardiac catheterization today for further evaluation, which showed a 90% distal stenosis in the left main coronary artery at the bifurcation of the LAD and the left circumflex artery. 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 The mid coronary artery had 75% calcific stenosis. Right-sided heart catheterization, showed a right atrial pressure of 7 mmHg, pulmonary artery pressure of 28/8, a wedge pressure of 9, cardiac output of 3.9 with an index of 2.2. We were consulted to evaluate for possible aortic valve replacement in combination with coronary artery bypass grafting versus transcatheter aortic valve replacement and high-risk PCI with Impella ventricular assist device placement. PAST MEDICAL HISTORY: chronic atrial fibrillation, history of abdominal aortic aneurysm without rupture, aortic stenosis, cervical radiculopathy, history of CVA in the past, hypertension and hyperlipidemia. He is legally blind. He has some central vision. Coumadin therapy, osteoarthritis, history of prostate cancer treated with resection 11 years ago, history of sick sinus syndrome. Patient update on day of discharge: pt doing well, on room air CXR showed small effusion/ lasix IV x one back on coumadin DS: Diagnosis - Discharge Diagnosis (1) S/P CABG (coronary artery bypass graft) Status: Acute (2) Severe aortic stenosis Status: Chronic (3) Coronary artery disease Status: Chronic (4) Atrial fibrillation Status: Chronic (5) Legally blind Status: Chronic DS: Summary Hospital Course: pt now at bedside, further discussion with pt and and Dr Nunn in regards to treatment options Dr Tran will discuss final plans with and pt this afternoon 05/06 pt and agreeable for surgery on Friday venous mapping : nonvisualization of greater saphenous throughout the right calf , nonvisualization of greater saphenous in the mid and distal portions of left calf CT chest aneurysmal dilatation of infrarenal abdominal aorta 4.4x4.4cm 1.6 cm focal infiltrate vs mass peripheral right upper lung 05/07 pt denies any chest pain or SOB stable for surgery in am 05/08 OR cancelled today 2/2 hematoma right groin appreciate vascular input Lower ext ultrasound : CONCLUSION: 1. Negative for pseudoaneurysm. Small hematoma adjacent to the common femoral vein measuring about 2 cm in diameter. rescheduled for Friday spoke with pt and no limb ischemia 05/09 Clinically and hemodynamically stable Ultrasound reviewed Greatly appreciate Dr. Bliss's input Plan OR Friday morning 05/10 Remains stable OR tomorrow 05/11 surgery PREPROCEDURE DIAGNOSES 1. Severe Multi Vessel Coronary Artery Disease. 2. Severe aortic stenosis 3. Atrial fibrillation POSTPROCEDURE DIAGNOSES 1. Severe Multi Vessel Coronary Artery Disease. 2. Severe aortic stenosis 3. 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 Urgent Clampless off-pump Coronary Artery Bypass Grafting x 3 with Left Internal Mammary Artery (BANKS) to Left Anterior Descending (LAD), reverse saphenous vein graft to obtuse Marginal branch of the left Circumflex artery, reverse saphenous vein graft to the right Coronary artery 2. Left leg Endoscopic Vein [place] 3. Intraoperative Vein Mapping. extubated after surgery crystalloid 3000cc, 650cc cell saver 05/12 on 5 liter nasal cannula intermittently paced last pm intermittent Afib with rate 60-70 pt will need to have workup for TAVR at a later date lactic acid 0.9 weaning off Silverio gtt / on 5 mcq of Dopamine on 5 liter nasal cannula intermittently paced last pm intermittent Afib with rate 60-70/ consult placed with Dr Millan on ASA, Plavix, no BB , amiodarone or CCB/ dc toradol leave in CVICU for now 05/13 off all pressors , feels fair , somewhat painful no BB or amiodarone for now remains in NSR / eval for chest tube removal later today ambulate , wean 02 resume coumadin when chest tubes out transfer to stepdown 05/14 went into afib RVR this am , short period add low dose BB chest tubes dc resume coumadin today, dc CVC line wean 02 as tolerated 05/15 doing well on room air remains in afib rate controlled tolerating low dose BB stable for dc to rehab - Time Spent with Patient Total time spent providing and/or coordinating discharge services: Greater than 30 minutes - Quality: VTE Deep Vein Thrombosis/Pulmonary Embolism Present on Admission: No Exam Vital signs: Vital Signs 05/14/18 14:00 05/14/18 15:00 05/14/18 16:00 Temperature Pulse Rate 77 75 78 Respiratory Rate Blood Pressure Pulse Oximetry 95 05/14/18 16:49 05/14/18 17:15 05/14/18 19:00 Temperature 98.2 F Pulse Rate 70 81 Respiratory Rate 20 16 Blood Pressure 120/59 L Pulse Oximetry 96 05/14/18 20:00 05/14/18 21:00 05/14/18 22:00 Temperature Pulse Rate 76 78 68 Respiratory Rate Blood Pressure Pulse Oximetry 05/14/18 23:00 05/14/18 23:57 05/15/18 00:00 Temperature 97.7 F Pulse Rate 74 80 Respiratory Rate 18 16 Blood Pressure 127/64 Pulse Oximetry 96 05/15/18 01:00 05/15/18 02:00 05/15/18 03:00 Temperature 98.4 F Pulse Rate 72 64 64 Respiratory Rate 18 Blood Pressure 142/72 H Pulse Oximetry 94 L 05/15/18 04:00 05/15/18 05:00 05/15/18 05:10 Temperature Pulse Rate 64 68 Respiratory Rate 16 Blood Pressure Pulse Oximetry 05/15/18 06:00 05/15/18 07:00 05/15/18 08:00 Temperature 97.9 F Pulse Rate 64 82 60 Respiratory Rate 16 Blood Pressure 174/80 H Pulse Oximetry 96 05/15/18 09:00 05/15/18 10:00 05/15/18 10:42 Temperature Pulse Rate 62 60 Respiratory Rate Blood Pressure Pulse Oximetry 96 05/15/18 10:53 05/15/18 12:00 05/15/18 13:00 Temperature 98.1 F Pulse Rate 70 68 78 Respiratory Rate 16 Blood Pressure 105/57 L Pulse Oximetry 96 05/15/18 13:38 Temperature Pulse Rate 82 Respiratory Rate Blood Pressure Pulse Oximetry Intake & Output 05/14/18 05/15/18 05/15/18 18:59 06:59 18:59 Intake Total 480 / 480 Output Total 620 / 620 Balance -140 / -140 Weight 77 kg Intake: Oral 480 / 480 Output: Urine 620 / 620 Other: Date of Last Bowel Movement 05/15/18 05/15/18 # Bowel Movements 1 - Constitutional no acute distress - Routine HEENT Exam Head: Present: normocephalic, atraumatic - Routine Neck Exam Present: supple, full ROM - Routine Chest/Breast/Axilla Exam Chest wall: Present: tenderness - Routine Respiratory Exam Comments: diminished in bases - Routine Cardiovascular Exam Present: S1, S2, irregularly irregular - Routine Abdominal Exam Present: soft, normoactive bowel sounds - Routine Extremities Exam Present: full ROM, pulses intact, normal capillary refill - Routine Skin Exam Present: intact, wounds Comments: prevena dressing to chest - Routine Neurological Exam Present: alert, oriented X3 Results Procedures completed during hospitalization: Date of procedure: 05/04/18 Pre-op diagnosis: Severe aortic valve stenosis Procedure: Procedure performed: 1. Fluoroscopy with interpretation 2. Coronary angiography 3. Right heart catheterization Methods: Risks, benefits, and alternatives were discussed with the patient. Patient understood and consented to the procedure. Patient was brought into the catheterization lab and placed in catheterization table. Right groin was prepped and draped in sterile fashion. Right groin was anesthetized with 2% lidocaine. Right femoral vein was accessed and a 7 [place] 11 cm sheath was placed without difficulty. Right common femoral artery was accessed and a 5 [place] 11 cm sheath was placed without difficulty. We had difficulty navigating the tortuous iliac vessels and selectively engaging the coronaries. The right common femoral sheath was upsized to a 6 [place] 25 cm sheath. Coronary angiography: 1. The left main coronary artery has 90% distal stenosis at the bifurcation of the left anterior descending and left circumflex coronary arteries. 2. The left anterior descending coronary artery has quite a bit of tortuosity and gives rise to a diagonal branch. The left anterior descending and diagonal branches have only minor luminal irregularities. 3. The left circumflex also has tortuous vessels in a first obtuse marginal branch with minor luminal irregularities. 4. 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 The mid right coronary artery is a 75% calcific stenosis the posterior descending branch originates off the right coronary artery making it a dominant vessel. The right coronary has only minor luminal irregularities. Right heart catheterization: A 7 [place] pulmonary arterial catheter was advanced to the right femoral venous sheath to the level of the right atrium under fluoroscopic guidance. Hemodynamics were performed in all chambers while venting to the pulmonary The wedge position. Hemodynamics are as follows. 1. Right atrial pressure 7 mmHg 2. Right ventricular pressure 37/3 mmHg 3. Pulmonary arterial pressure 28/8 mmHg 4. Pulmonary He wedge position 9 mmHg 5. Cardiac output 3.9 L/min 6. Cardiac index 2.2 L/min/m Conclusions: 1. 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 Severe aortic valve stenosis 3. Normal left and right-sided filling pressures. Normal cardiac output/index. Plan: We will consult cardiothoracic surgery for consideration of surgical aortic valve replacement in combination with coronary artery bypass surgery. Given the patient's advanced age and comorbidities in addition to calcific aorta, we will have to determine if he is a surgical candidate. A percutaneous approach would be very high risk and involve aortic valvuloplasty, Impella left ventricular percutaneous assist device placement, and multivessel coronary intervention. Date of procedure: 05/11/18 Anesthesia: GETA Surgeon: Dominguez Tran MD Operation and Findings: PREPROCEDURE DIAGNOSES 1. Severe Multi Vessel Coronary Artery Disease. 2. Severe aortic stenosis 3. Atrial fibrillation POSTPROCEDURE DIAGNOSES 1. Severe Multi Vessel Coronary Artery Disease. 2. Severe aortic stenosis 3. 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 Urgent Clampless off-pump Coronary Artery Bypass Grafting x 3 with Left Internal Mammary Artery (BANKS) to Left Anterior Descending (LAD), reverse saphenous vein graft to obtuse Marginal branch of the left Circumflex artery, reverse saphenous vein graft to the right Coronary artery 2. Left leg Endoscopic Vein [place] 3. Intraoperative Vein Mapping. SURGEON Dominguez Tran MD INDUSTRIAL MAINTENANCE TECH Calvin Tobar ROLLER STAKERKourtney Cooper, [facility] ANESTHESIA General endotracheal SHORT ORDER COOK LUTHER Espinoza MD PREPARATION ChloraPrep. COUNTS Needle, sponge, and instrument counts were correct. DRAINS Two 32-[place] mediastinal tubes. COMPLICATIONS None. INDICATIONS FOR PROCEDURE The patient is a 87-year-old presenting with chest pain and shortness of breath. Patient was noted to have multi-vessel coronary artery disease and severe aortic stenosis. The patient is being brought to the operating room for surgical therapy. PROCEDURE Patient was brought to the operating room and placed supine on the OR table. Following the induction of adequate general endotracheal anesthesia and placement of appropriate monitoring devices, intraoperative vein mapping was performed which revealed marginal but usable-caliber conduit in the left lower extremity. The patient was then prepped and draped in standard sterile fashion. Next, 2500 units of intravenous heparin was given. The left greater saphenous vein was harvested endoscopically. This appeared to be a useable-caliber conduit. Simultaneously, a median sternotomy was performed and the left internal mammary artery dissected free off the posterior sternal table. The patient was systemically heparinized and anticoagulation monitored by serial ACT measurements. The internal mammary artery had excellent pulsatile flow in it and was a good-caliber conduit. The pericardium was then divided in the midline, the cradle created and targets analyzed. Inspection of the ascending aorta at this point revealed a near porcelain aorta. It was heavily calcified with a very small area that was spared in the very proximal aspect of the ascending aorta just distal to the root. There was no area to cannulate or to crossclamp the ascending aorta in order to proceed with the aortic valve procedure, therefore, plans were made to proceed with off-pump coronary revascularization with potential TAVR following recovery. At this point, all anastomoses were performed in a beating-heart fashion using the [place] stabilizing system. The left internal mammary artery was anastomosed to the mid LAD (1.75 mm) in an end-to-side fashion using 7-0 Prolene. Segment of saphenous vein graft was then anastomosed to the OM1 (2 mm) in an end-to-side fashion using 7-0 Prolene. The final segment was anastomosed to the RCA (2 mm) in an end-to-side fashion using 7-0 Prolene. The proximal anastomoses were then constructed to the ascending aorta in a clamp less fashion using the heartstring device and a running 6-0 Prolene. All anastomotic sites were inspected and appeared to be hemostatic and patent. Protamine solution was given. Strict hemostasis was assured. The closure was undertaken. 2 chest tubes and ventricular pacing wires were placed. The pericardium was reapproximated in the midline. The sternum was approximated using sternal wires. The muscular and fascial layer were then closed in 3 layers. The endoscopic vein harvest site was closed in 2 layers. The patient tolerated the procedure well and was transferred to CVICU in stable condition. Labs on day of discharge: Labs from last 24 hours 05/15/18 05/15/18 05/15/18 11:16 08:59 08:14 PT 10.5 INR 1.0 POC Glucose 130 H 107 05/14/18 05/14/18 20:38 17:00 PT INR POC Glucose 141 H 157 H - Impressions ITS Impressions Chest CT 05/04/18 00:00 CONCLUSION: 1. There is a 1.6 cm focal infiltrate versus mass density in the peripheral right upper lung. This may be a focal inflammatory process versus mass. There are no prior studies for comparison. If this does not resolve after appropriate medical therapy, a PET CT could be performed for further evaluation. 2. There is aneurysmal dilatation of the infrarenal abdominal aorta measuring 4.4 x 4.4 cm. There is diffuse atherosclerotic changes throughout the thoracic and abdominal aorta. 3. Short segment focal moderate to possibly high-grade stenosis involving the proximal segment of the left renal artery. Carotid Doppler Study 05/05/18 15:43 CONCLUSION: Calcified atherosclerotic plaque bilaterally slightly more abundant on the left without a hemodynamically significant stenosis involving either carotid artery. Antegrade flow involving both vertebral arteries. Venous Doppler Study 05/05/18 15:43 CONCLUSION: Negative exam. No sonographic or Doppler findings of deep venous thrombosis. Lower Extremity Ultrasound 05/08/18 00:00 CONCLUSION: 1. Negative for pseudoaneurysm. Small hematoma adjacent to the common femoral vein measuring about 2 cm in diameter. Chest X-Ray 05/15/18 06:00 CONCLUSION: No evidence of pneumothorax following chest tube removal. Discharge Plan - Discharge Disposition Patient Disposition: 62 Rehab Inpatient - Discharge Condition Condition: Good - Discharge Details Anticipated Discharge Date: 05/15/18 - Physicians Team Primary Care Provider: Primary Care Physici,Haley Attending Provider: Dominguez Tran Other Providers: Dominguez Tran MD ; Manuel Bliss MD ; Kedar Noble MD ; Christophe Gaston,Agency ; Calvin Hawthorne MD ; Sandra Millan MD ; Milvia [place] Haven[place]ini peoples - Rxs /Orders / Referrals /Forms Prescriptions: New docusate sodium [DOK] 100 mg Capsule 100 mg PO BID RF: 0 ferrous sulfate [FeroSul] 325 mg (65 mg iron) Tablet 325 mg PO BID@1200,1700 RF: 0 furosemide [Lasix] 20 mg Tablet 40 mg PO DAILY Qty: 7 RF: 0 ipratropium-albuterol 0.5 mg-3 mg(2.5 mg base)/3 mL Solution For Nebulization 1 amp NEB Q2HR NEB PRN (Reason: Wheezing) RF: 0 metoprolol tartrate 25 mg Tablet 12.5 mg PO BID RF: 0 twlkvpqs-ajam-TR-calcium-mins [Thera M Plus (ferrous fumarat)] 9 mg iron-400 mcg Tablet 1 tab PO DAILY RF: 0 oxycodone-acetaminophen 5-325 mg Tablet 1 tab PO Q4H PRN (Reason: Pain Scale 1 To 4) RF: 0 potassium chloride 10 mEq Tablet Extended Release 20 meq PO DAILY Qty: 7 RF: 0 warfarin [Coumadin] 4 mg Tablet 4 mg PO DAILY@1600 RF: 0 Continue aspirin [Aspirin Low Dose] 81 mg Tablet,Delayed Release (Dr/Ec) 81 mg PO DAILY brimonidine 0.2 % Drops 1 drp OPHTHALMIC (EYE) BID dorzolamide-timolol 22.3-6.8 mg/mL Drops 1 drp OPHTHALMIC (EYE) BID latanoprost 0.005 % Drops 1 drp OPHTHALMIC (EYE) QPM lisinopril 10 mg Tablet 10 mg PO DAILY lovastatin 40 mg Tablet Extended Release 24 Hr 40 mg PO DAILY polyethylene glycol 3350 17 gram Powder In Packet 17 g PO DAILY PRN (Reason: Constipation) tramadol 50 mg Tablet 50 mg PO Q6H PRN (Reason: Pain) Discontinued diltiazem HCl 120 mg Capsule,Extended Release 24 Hr 120 mg PO DAILY Ambulatory Orders / Order Sets / DME: Prothrombin Time INR (Routine) Location: Determined by Patient Ordered By: Lisa Sampson Referrals: David Wu Dr [Other] - See Instructions ( Your appointment has been scheduled for [05/25/18] at [1:30 pm] If you cannot make this appointment, please call the office to reschedule ) Calvin Hawthorne MD [Physician] - See Instructions ( Your appointment has been scheduled for [06/08/18] at [2:15 PM] If you cannot make this appointment, please call the office to reschedule ) Lisa Sampson [ADVANCE RN PRACTITIONER] - See Instructions ( Your appointment has been scheduled for [06/02/18] at [10:45 am] If you cannot make this appointment, please call the office to reschedule ) Christophe Gaston,Agency [Agency] - See Instructions Michael Nunn MD [Physician] - See Instructions ( Your appointment has been scheduled for [06/16/18] at [2:20 pm] If you cannot make this appointment, please call the office to reschedule ) - Discharge Instructions Patient Printed Instructions: Heart Catheterization (DC) Additional Instructions: HOME HEALTH CARE HAS BEEN ARRANGED WITH NIRAJ GASTON, CONTACT#[phone] PREVENA Single Use Negative Wound Therapy System Caregiver Instruction Sheet 1. A Prevena dressing system was applied to the chest incision during surgery , to promote wound healing. It works via a suction device (negative pressure wound therapy) to remove low to moderate levels of exudate (drainage) and infectious materials. We recommend that the device stay in place for up to seven days, from day of surgery. 2. Day of Surgery___05/11/18 Day of Removal ___05/18/18 3. The dressing should only be removed by a health direct care worker. Please arrange removal of device to coincide with Home Health visit and or with Nursing staff at Rehab 4. If skin reddening or irritation of skin occurs, or excessive drainage, please notify the Cardiovascular Surgeons office at [phone]. 5. Light showering is permissible; however the pump should be disconnected and placed in safe location, where it will not get wet. The dressing should not be exposed to direct spray or submerged in water. No bath tub / shower only. Ensure the end of the tubing attached to the dressing is facing down so that water does not enter the top of the tube. 6. To remove Prevena dressing: press purple button to turn off device / remove the suction. Then disconnect the tubing from the pump. The fixation strips should be stretched away from the skin and the dressing lifted at one corner and peeled back until it has been fully removed. 7. After removal, it is ok to shower daily using liquid dial soap and clean wash cloth, rinse and pat dry, and leave incision open to air dry. For any concerns regarding Prevena dressing, and or wounds, please contact Tamar Flores, patient navigator at [phone] or notify the Cardiovascular Surgeons office at [phone]. Incentive spirometry Q1 hr x 10, while awake, also use acapella device hourly whole awake Sternal Breast Bone Precautions: NO pushing or pulling, ( pt must use sternal pillow to support chest with all activities and with coughing ( takes up to 3 months breast bone to heal ) Daily incision care: ok to shower daily, no tub bath. Wash all incisions with liquid dial soap, clean wash cloth to each site, rinse and pat dry. Observe for any signs of infection, such as drainage which is dark yellow, matt, green or foul smelling. Immediately report to the surgeon any drainage from the chest incision, or legs, and for any abnormal drainage from the chest tube sites. Notify surgeon if any temp >101.5 degrees F. When specialty dressing removed/ or if you do not have one, continue to shower daily as above, then rinse and pat incision dry and paint with betadine daily x 5 days. Allow steri strips to fall off if you have any. Avoid lotions, creams, salves, oils, etc. for the first month Please see attached forms for additional instructions regarding post Open Heart specialty wound vacuum dressings. MARTHA or Prevena , Dressing to be removed by Nursing staff on __05/18/18 F/U appointment: as per MA instructions: PCP in 2 weeks, CV surgeon 2 weeks, Recreation Therapy Aides Teacher 3-4 weeks For any questions regarding incisions/ dressing / meds / post op care or above Symptoms, Friday 8am-5pm Heart & Vascular Surgery Office ( Dr. Tran & Dr. Barbosa), After Hours / Nights (5pm -8am) Weekends and Holidays Please call [facility] Cardiac Intermediate Care Unit (CIC) Charge Nurse
[2018-05-15 15:15] VITALS: BP 132/60; PULSE 57; RESP 18; TEMP 97.8; O2SAT 99
== END 2018-05-15 15:52 ==
LOC: HDOC 05:51 → HDIC 05:58 → HCPC 17:15 → HCVI 05-11 12:44 → HCPC 05-13 10:22
PROVIDERS: ADMIT Thoracic Surgery (Cardiothoracic Vascular Surgery); ATTEND Thoracic Surgery (Cardiothoracic Vascular Surgery)
PROC: CABGAVR (ICD-10-PCS; 2018-05-11 07:13)

== ENCOUNTER 2018-06-24 07:43 | Inpatient (IN) ==
[2018-06-24] MEDS ORDERED: Chlorhexidine Gluconate 2% 1 Pack (2 Cloths) TOPICAL SCH (08:15)
[2018-06-24] MEDS ORDERED: Aspirin 325 MG Tablet PO SCH (08:15)
[2018-06-24] MEDS ORDERED: Mupirocin 2% Nasal Oint Topical Syringe EACH NARE SCH (08:15)
[2018-06-24] MEDS ORDERED: Sod Chloride 0.9% Inj 1,000 ML IV.CONT SCH ×2 (08:30→13:00)
[2018-06-24] MEDS ORDERED: Metoprolol Tartrate 25 MG Tablet PO ONE (08:30)
[2018-06-24] MEDS ORDERED: Sodium Chlor 0.9% Inj 500 ML IV.CONT ONE (08:30)
[2018-06-24] MEDS ORDERED: ceFAZolin 2 GM Premix Inj 2 GM/50 ML PIGGYBACK IV.SIG SCH (09:00)
[2018-06-24] MEDS ORDERED: Heparin 10,000 UNITS/10 ML Vial (for IV use) ONE (10:18)
[2018-06-24] MEDS ORDERED: Protamine Sulfate Inj 50 MG/5 ML Vial ONE (10:18)
--- NOTE | 2018-06-24 10:38 | P.HPCA ---
History of Present Illness Service: Cardiology Primary Care Physician: Dr David Wu Chief Complaint: Severe aortic valve stenosis History of Present Illness: This 87-year-old gentleman who has history of coronary artery disease and severe aortic valve stenosis. 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 Patient did get a left internal mammary to left anterior descending coronary artery bypass graft. Patient is now here for scheduled transcatheter aortic valve replacement. Inpatient Certification: I certify that the inpatient services were ordered in accordance with Medicare regulations governing the order. This includes certification that hospital inpatient services are reasonable and necessary and in the case of services not specified as inpatient-only under 42 CFR 419.22(n), that they are appropriately provided as inpatient services in accordance to with the 2-midnight benchmark under 43 CFR 412.3(e) Estimated Total Length of Stay (Days): 3 Plans for Post Hospital Care: Home Review of Systems All other systems reviewed negative except as stated in HPI [facility] [place] - History History Provided By: Patient - Medical History Medical History: Medical History (Last Updated 06/24/18 @ 08:33 by Lissa Garsia RN) CVA (cerebral vascular accident) Shingles AAA (abdominal aortic aneurysm) Afib Angina pectoris Aortic stenosis Arthritis Bilateral cataracts Blind in both eyes HLD (hyperlipidemia) HTN (hypertension) Hiatal hernia Prostate CA SSS (sick sinus syndrome) - Surgical History Surgical History: Surgical History (Last Updated 06/24/18 @ 08:33 by Lissa Garsia RN) Hx of CABG H/O prostatectomy History of bilateral knee replacement Hx of tonsillectomy - Family History Family History: Family History (Last Reviewed 05/20/18 @ 11:33 by MARLIN Chávez) Father Heart disease - Tobacco History Second Hand Smoke Exposure: No Smoking Status: Former smoker - Alcohol History How Often Do You Have a Drink Containing Alcohol: Monthly or less - Substance Use History Substance History: No History of Abuse - Travel History History of Recent Travel: No Medications and Allergies Active Medications: Active Medications Aspirin (Aspirin) 325 mg PO RING SEWER YULIANA Stop: 06/27/18 08:14 Chlorhexidine Gluconate (Chlorhexidine 2% Cloth) 3 pack TOPICAL RING SEWER YULIANA Stop: 06/27/18 08:14 Last Admin: 06/24/18 08:38 Dose: 3 pack Cefazolin Sodium/Dextrose (Ancef 2 Gm Premix Inj) 2 gm in 50 mls @ 100 mls/hr IV.SIG ONCE [facility] Stop: 06/27/18 08:14 Sodium Chloride (Ns Inj) 1,000 mls @ 125 mls/hr IV.CONT .Q8H [facility] Lactated Ringer's (Lr 1000 Ml Inj) 1,000 mls @ 30 mls/hr IV.CONT .Q24H ONE Stop: 06/25/18 08:29 Sodium Chloride (Ns Inj) 500 mls @ 30 mls/hr IV.CONT .[id number] ONE Stop: 06/25/18 01:09 Mupirocin (Bactroban 2% Nasal Oint) 1 applicatio EACH NARE RING SEWER [facility] Stop: 06/27/18 08:14 Povidone Iodine (Betadine 5% Antisepsis Kit) 1 applicatio TOPICAL RING SEWER [facility] Stop: 06/27/18 08:14 Last Admin: 06/24/18 08:38 Dose: 1 applicatio Allergies Allergy/AdvReac Type Severity Reaction Status Date / Time No Known Allergies Allergy Verified 06/24/18 08:37 Home Medications Medication Instructions Recorded Confirmed Type dorzolamide-timolol 1 drp OPHTHALMIC (EYE) BID 05/04/18 06/24/18 History latanoprost 1 drp OPHTHALMIC (EYE) QPM 05/04/18 06/24/18 History brimonidine 1 drp OPHTHALMIC (EYE) BID 05/11/18 06/24/18 History aspirin 81 mg PO DAILY 06/24/18 06/24/18 History docusate sodium [Colace] 100 mg PO BID 06/24/18 06/24/18 History ferrous sulfate 325 mg PO BID 06/24/18 06/24/18 History lisinopril 10 mg PO DAILY 06/24/18 06/24/18 History lovastatin 40 mg PO QPM 06/24/18 06/24/18 History metoprolol tartrate 12.5 mg PO BID 06/24/18 06/24/18 History polyethylene glycol 3350 17 g PO DAILY PRN 06/24/18 06/24/18 History warfarin 5 mg PO DAILY 06/24/18 06/24/18 History Exam Vital signs: Vital Signs 12/12/18 08:30 Temperature 97.9 F Pulse Rate 83 Respiratory Rate 16 Blood Pressure 151/88 H Pulse Oximetry 100 Intake & Output 06/23/18 06/24/18 06/24/18 18:59 06:59 18:59 Weight 65.8 kg Other: Weight On Admission 65.8 kg - Constitutional no acute distress - Routine HEENT Exam Head: Present: normocephalic, atraumatic Eye: Present: EOMI, PERRL ENT: Present: mucous membranes moist - Routine Neck Exam Absent: JVD - Routine Respiratory Exam Present: CTA bilaterally - Routine Cardiovascular Exam Present: RRR, murmur - Routine Abdominal Exam Present: normoactive bowel sounds - Routine Extremities Exam Present: pulses intact. Absent: edema - Routine Neurological Exam Present: oriented X3, CN II-XII intact. Absent: sensory deficit, motor deficit , altered mental status Results Intake and Output 06/23/18 06/24/18 06/24/18 22:59 06:59 14:59 Other: Weight 65.8 kg Weight On Admission 65.8 kg Patient Weight 06/25/18 06:59 Weight 65.8 kg EKG interpretations - Dysrhythmias Sinus rhythms and dysrhythmias: sinus bradycardia (< 50 bpm) Caprini VTE Risk Assessment Caprini VTE Risk Assessment: Moderate/High Risk (score >= 2) Caprini Risk Assessment Model: Point Value = 1 Point Value = 2 Point Value = 3 Point Value = 5 Age 41-60 Minor surgery BMI > 25 kg/m2 Swollen legs Varicose veins or History of unexplained or recurrent spontaneous Oral contraceptives or hormone replacement Sepsis (< 1 month) Serious lung disease, including pneumonia (< 1 month) Abnormal pulmonary function Acute myocardial infarction Congestive heart failure (< 1 month) History of inflammatory bowel disease Medical patient at bed rest Age 61-74 Arthroscopic surgery Major open surgery (> 45 min) Laparoscopic surgery (> 45 min) Malignancy Confined to bed (> 72 hours) Immobilizing plaster cast Central venous access Age >= 75 History of VTE Family history of VTE Factor V Leiden Prothrombin [id number] Lupus anticoagulant Anticardiolipin antibodies Elevated serum homocysteine Heparin-induced thrombocytopenia Other congenital or acquired thrombophilia Stroke (< 1 month) Elective arthroplasty Hip, pelvis, or leg fracture Acute spinal cord injury (< 1 month) Prophylaxis Regimen: Total Risk Factor Score Risk Level Prophylaxis Regimen 0-1 Low Early ambulation 2 Moderate Order ONE of the following: *Sequential Compression Device (SCD) *Heparin 5000 units SQ BID 3-4 Higher Order ONE of the following medications: *Heparin 5000 units SQ TID *Enoxaparin/Lovenox 40 mg SQ daily (WT < 150 kg, CrCl > 30 mL/min) *Enoxaparin/Lovenox 30 mg SQ daily (WT < 150 kg, CrCl > 10-29 mL/min) *Enoxaparin/Lovenox 30 mg SQ BID (WT < 150 kg, CrCl > 30 mL/min) AND/OR *Sequential Compression Device (SCD) 5 or more Highest Order ONE of the following medications: *Heparin 5000 units SQ TID (Preferred with Epidurals) *Enoxaparin/Lovenox 40 mg SQ daily (WT < 150 kg, CrCl > 30 mL/min) *Enoxaparin/Lovenox 30 mg SQ daily (WT < 150 kg, CrCl > 10-29 mL/min) *Enoxaparin/Lovenox 30 mg SQ BID (WT < 150 kg, CrCl > 30 mL/min) AND *Sequential Compression Device (SCD) Assessment and Plan - Plan This 87-year-old gentleman with history of coronary disease who recently underwent coronary bypass surgery and is now here scheduled for a staged transcatheter aortic valve 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 Preoperative workup: STS score 7.4% Nuclear association functional class III symptoms BMI is 27.4 Frailty 2/4 Electrocardiogram sinus bradycardia Pulmonary function test FEV1 1.16 with moderate restrictive lung disease Echocardiogram April 01, 2018 shows jet velocity of 4.8 m/s, mean gradient 48 mmHg, aortic valve area 0.7 cm, ejection fraction 55-60% with mild aortic, mitral, and tricuspid regurgitation Cardiac catheterization April 30, 2018 shows severe [place] coronary artery disease but the patient then underwent three-vessel coronary bypass surgery Computed tomography analysis on May 04, 2018 shows short anus timing 21.6 mm , long in its diameter 27.7 mm, primary 24.7 mm, sinus of Valsalva 33.8 mm, sinotubular junction 27.4 mm, left coronary height 23.2 mm, right coronary 22.5 mm, minimal luminal diameter in the right iliac system is 6.6 mm and in the left system 7.4 mm Risks, benefits, and alternatives were discussed with the patient. Patient understood and consented to the procedure. Patient will be taken for a transcatheter aortic valve replacement with a bioprosthetic Medtronic 29 mm Evolut pro valve.
[2018-06-24] MEDS ORDERED: Iohexol Inj 350 MG/ML 100 ML Bottle (for RAD Diag) IVCONTRAST ONE (12:09)
--- NOTE | 2018-06-24 12:19 | P.OP ---
Date of procedure: 06/24/18 Anesthesia: GETA Surgeon: Dominguez Tran MD Operation and Findings: PREOPERATIVE DIAGNOSIS: 1. Severe Symptomatic Aortic stenosis. 2. 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 CAD - s/p CABG POSTOPERATIVE DIAGNOSIS: Same OPERATION PERFORMED: 1. Transcatheter Aortic Valve Replacement (TAVR) with a Medtronic 29 mm Evolut Pro Tissue Valve. 2. Balloon Aortic Valvuloplasty 3. Aortogram 4. Percutaneous Bilateral Common Femoral Artery Access 5. Perclose (x2) closure of Left Common Femoral artery 6. Vascade closure of Right Common Femoral Artery 7. Fluoroscopy SURGEON: Dominguez Tran MD CO-SURGEON: Michael Nunn MD OVERNIGHT ASSOCIATE SURGEON: None SURVEYING CREW STAKE RUNNER: LUTHER Espinoza MD ANESTHESIA: GETA PROCEDURE: The risks, benefits, complications, treatment options, and expected outcomes were discussed with the patient. The possibilities of reaction to medication, pulmonary aspiration, perforation of viscus, bleeding, recurrent infection, the need for additional procedures, failure to diagnose a condition, and creating a complication requiring transfusion or operation were discussed with the patient. The patient concurred with the proposed plan, giving informed consent. The site of surgery properly noted/marked. The patient was taken to the hybrid operating room and the procedure verified as Transcatheter Aortic Valve Replacement. A Time Out was held and the above information confirmed. Standard monitoring lines and Medina catheter were placed. General anesthesia was induced. The patient was prepped and draped in a sterile fashion. Initially, the right femoral arterial access was acquired using a Seldinger percutaneous technique. The details of this procedure were dictated under separate note by cardiology. Once a pigtail was positioned in the aortic annulus and a temporary transvenous pacemaker wire was placed in the right ventricular apex and tested, the left femoral artery was accessed using a needle followed by a guidewire under fluoroscopic guidance. The patient was heparinized and two Perclose devices deployed at a 45 degree angle for later closure. Serial dilators were used to dilate the left femoral artery to 16 Kinyarwanda caliber. The Medtronic sheath was then inserted into the external iliac artery up to the distal abdominal aorta. Arch aortography was performed to define the implant view. Balloon aortic valvuloplasty was performed using a 23 x 4 balloon. A 29 mm Medtronic Evolut Pro transcatheter aortic valve was then positioned in the annulus and deployed with the patient being rapidly paced. Following deployment, the valve apparatus was withdrawn and arch aortography and RONY were performed to assess the valve. The valve had mild perivalvular leak. Gradients were then measured and the sheath was removed with securing the Perclose sutures for hemostasis. Protamine was administered. The right arterial access site was closed using the Vascade device. Sterile dressings were placed. At the end of the operation, all sponge, instruments, and needle counts were correct. The patient was transferred to the CVICU in stable condition. Findings: Mild PVL Implants: 29 Evolut Pro Medtronic Valve Complications: None Disposition: CVICU in stable condition
[2018-06-24] MEDS ORDERED: fentaNYL Citrate Inj 100 MCG/2 ML Ampul ONE (12:39)
--- NOTE | 2018-06-24 12:49 | P.OP ---
- Preoperative Diagnosis (1) Severe aortic stenosis Date of procedure: 06/24/18 Procedure: Transcatheter aortic valve replacement Implants: 29 mm Medtronic Evolut pro bioprosthetic valve Surgeon: Michael Nunn MD Plumbing And Heating Contractor: Dominguez Tran Operation and Findings: notching press operator: Michael Nunn MD Primary Surgeon: Dominguez Tran MD Procedures performed: 1. Fluoroscopy with interpretation 2. Left heart catheterization 3. Ascending aortography 4. Temporary transvenous pacemaker placement 5. Transesophageal echocardiogram 6. Aortic balloon valvuloplasty 7. Transcatheter aortic valve replacement with Medtronic Evolut R 29 mm bioprosthetic valve Methods: Risks, benefits, and alternatives were discussed with the patient. Patient understood and consented to the procedure. Patient was brought into the operating room and placed on the operating table. Bilateral groins and chest were prepped and draped. Under fluoroscopic guidance the left common femoral artery was cannulated and a 5 Estonian 11 cm sheath was placed without difficulty. Left femoral vein was accessed and a 5 [place]ian 11 cm sheath was placed without difficulty. Right common femoral artery was cannulated under fluoroscopic and angiographic guidance through using a micropuncture sheath. Angiography confirmed appropriate placement. An 8 [place]ian sheath was placed without difficulty. 2 Perclose devices were deployed in a pre-close manner. The 14 sheath was then advanced up over the wire through the iliac system without difficulty into the descending abdominal aorta. Temporary transvenous pacemaker placement: A 5 [place]ian balloontipped temporary transvenous pacemaker was advanced under fluoroscopic guidance to the right internal jugular sheath to the right ventricular apex. Appropriate pacing and capture was confirmed and utilized during the procedure for rapid ventricular pacing. Transesophageal echocardiogram: Please see detailed separate report Ascending aortography: Ascending aortography was performed using an 5 [place]ian angled pigtail catheter advanced to the left common femoral arterial sheath to the level of the descending aorta and its the right coronary cusp. Ascending aortography was performed which showed 3 leaflets and parallax view. The ascending aorta was not significantly dilated. Left heart catheterization: A 5 Estonian AL-1 catheter was advanced through the right common femoral sheath to the level of the descending aorta a 0.035 inch Amplatz straight tip Super Stiff wire was then advanced across the aortic valve with some difficulty. The AL-1 catheter was advanced into the left ventricle. A 260 cm 0.035 inch standard J-wire was then advanced to the left ventricular apex and the AL-1 catheter removed. A 5 [place]ian angled pigtail catheter was then advanced over the J-wire into the left ventricular apex and the J-wire removed. A 0.035 inch 260 cm Medtronic Confida wire was then advanced to the left ventricular apex through the pigtail catheter, and the pigtail catheter removed. Transcatheter aortic valve replacement: A 29 mm Medtronic Evolut R valve was advanced through the right common femoral sheath to the level of the descending aorta. The device was then advanced up and over the arch to the level of the ascending aorta and across the aortic valve. Appropriate positioning was confirmed with a sending aortography and fluoroscopy. Under ventricular pacing at rate of 120 bpm, the transcatheter aortic valve was slowly deployed. Immediate post deployment transesophageal echocardiogram revealed appropriate positioning. There was no perivalvular leak or pericardial effusion. Patient tolerated the procedure with good hemodynamic stability. The delivery sheath was then removed. The right common femoral arterial sheath was removed and 2 Perclose devices deployed with good hemostasis. The left common femoral artery and venous sheaths were also removed and 2 Vascade closure devices were deployed with good hemostasis. Aortic balloon valvuloplasty: A valvuloplasty balloon was prepped. The balloon was then advanced over the Medtronic Confida wire to the level of the ascending aorta and across the aortic valve. Under rapid ventricular pacing at 180 bpm the aortic valvuloplasty balloon was deployed. Repeat transesophageal echocardiogram post deployement revealed no pericardial effusion. Patient remained hemodynamically stable. Post valve deployment intraoperative transesophageal echocardiogram findings: 1. Post aortic valve area was 2.82 cm 2. Post implant mean aortic valve gradient was 6 mmHg 3. Post implant peak velocity was 1.89 m/seconds 4. Aortic valve insufficiency showed mild perivalvular leak Conclusions: 1. Severe [place] aortic valve stenosis 2. Successful transcatheter aortic valve replacement with a 29 mm Medtronic Evolut R bioprosthetic valve 3. Successful aortic balloon valvuloplasty Plan: We will monitor the patient closely for any immediate postprocedural complications. We will consult electrophysiology for evaluation of postprocedure heart rhythm. We will obtain a limited transthoracic echocardiogram. We will initiate antiplatelet therapy with aspirin and Plavix. Patient be transferred to the cardiovascular intensive care unit for further monitoring
[2018-06-24] MEDS ORDERED: hydrALAZINE HCl Inj 20 MG/ML Vial IV.PUSH PRN (12:57)
[2018-06-24] MEDS ORDERED: Morphine Sulfate Inj 2 MG/ML Vial IV.PUSH PRN (12:57)
[2018-06-24] MEDS ORDERED: Acetaminophen 325 MG Tablet PO PRN (12:57)
[2018-06-24] MEDS ORDERED: Atropine Inj 1 MG/ML Vial IV.PUSH PRN (12:57)
--- NOTE | 2018-06-24 14:52 | P.CONCC ---
History of Present Illness Service: Critical care Consult date: 06/24/18 Requesting Physician: Michael Nunn Reason for Consult: s/p TAVR Primary Care Provider: Dr David Wu Chief Complaint: Severe aortic valve stenosis History of Present Illness: Patient is a 87-year-old male with past medical history significant for CVA, AAA, severe aortic stenosis, atrial fibrillation, dyslipidemia, hypertension and sick sinus syndrome. He recently had cardiac catheterization which revealed coronary artery disease and severe aortic valve stenosis. 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 Patient underwent BANKS to LAD coronary artery bypass graft. Patient was subsequently evaluated by Dr. Nunn for TAVR and today was admitted for scheduled transcatheter aortic valve replacement. Patient underwent successful transcatheter aortic valve replacement with a 29 mm Medtronic bioprosthetic valve, and temporary venous pacemaker placement. Postop RONY showed post implant mean aortic valve gradient was 6 mmHg and mild perivalvular leak I evaluated the patient in the ICU. Postop breathing comfortably hypertensive most likely from pain. He has received 1 dose of clonidine and he is about to receive IV morphine for pain. Bilateral groins without hematoma peripheral pulses are palpable in all extremities. Not requiring pacing at this time Review of Systems All other systems reviewed negative except as stated in HPI PMFSH - History History Provided By: Patient - Medical History Medical History: Medical History (Last Updated 06/24/18 @ 08:33 by Lissa Garsia RN) CVA (cerebral vascular accident) Shingles AAA (abdominal aortic aneurysm) Afib Angina pectoris Aortic stenosis Arthritis Bilateral cataracts Blind in both eyes HLD (hyperlipidemia) HTN (hypertension) Hiatal hernia Prostate CA SSS (sick sinus syndrome) - Surgical History Surgical History: Surgical History (Last Updated 06/24/18 @ 08:33 by Lsisa Garsia RN) Hx of CABG H/O prostatectomy History of bilateral knee replacement Hx of tonsillectomy - Family History Family History: Family History (Last Reviewed 05/20/18 @ 11:33 by MARLIN Chávez) Father Heart disease - Tobacco History Second Hand Smoke Exposure: No Smoking Status: Former smoker - Alcohol History How Often Do You Have a Drink Containing Alcohol: Monthly or less - Substance Use History Substance History: No History of Abuse - Travel History History of Recent Travel: No Medications and Allergies Active Medications: Active Medications Acetaminophen (Tylenol) 650 mg PO Q4H PRN PRN Reason: PAIN SCALE 1 TO 2 Stop: 06/25/18 12:56 Aspirin (Aspirin) 325 mg PO DRY [facility] Stop: 06/27/18 08:14 Aspirin (Aspirin Chew) 81 mg PO DAILY [facility] Atropine Sulfate (Atropine Inj) 0.5 mg IV.PUSH UNSCH PRN PRN Reason: VAGAL REPONSE Stop: 06/25/18 12:56 Chlorhexidine Gluconate (Chlorhexidine 2% Cloth) 3 pack TOPICAL DRY [facility] Stop: 06/27/18 08:14 Last Admin: 06/24/18 08:38 Dose: 3 pack Clonidine HCl (Catapres) 0.2 mg PO Q6H PRN PRN Reason: SBP > 160 mmHg Last Admin: 06/24/18 14:11 Dose: 0.2 mg Clopidogrel Bisulfate (Plavix) 75 mg PO DAILY [facility] Ferrous Sulfate (Ferosul) 325 mg PO DAILY [facility] Hydralazine HCl (Apresoline Inj) 10 mg IV.PUSH Q30M PRN PRN Reason: SBP > 160 mmHg Cefazolin Sodium/Dextrose (Ancef 2 Gm Premix Inj) 2 gm in 50 mls @ 100 mls/hr IV.SIG ONCE [facility] Stop: 06/27/18 08:14 Last Infusion: 06/24/18 11:40 Dose: Infused Sodium Chloride (Ns Inj) 1,000 mls @ 125 mls/hr IV.CONT .Q8H [facility] Lactated Ringer's (Lr 1000 Ml Inj) 1,000 mls @ 30 mls/hr IV.CONT .Q24H ONE Stop: 06/25/18 08:29 Sodium Chloride (Ns Inj) 500 mls @ 30 mls/hr IV.CONT .[id number] ONE Stop: 06/25/18 01:09 Sodium Chloride (Ns Inj) 1,000 mls @ 125 mls/hr IV.CONT .Q8H [facility] Stop: 06/24/18 16:59 Morphine Sulfate (Morphine Inj) 2 mg IV.PUSH Q30M PRN PRN Reason: BREAKTHROUGH PAIN Mupirocin (Bactroban 2% Nasal Oint) 1 applicatio EACH NARE DRY [facility] Stop: 06/27/18 08:14 Ondansetron HCl (Zofran Inj) 4 mg IV.PUSH ONCE PRN PRN Reason: NAUSEA OR VOMITING Oxycodone/Acetaminophen (Percocet 5/325 Mg) 1 tab PO Q6H PRN PRN Reason: PAIN SCALE 3 TO 5 Last Admin: 06/24/18 14:25 Dose: 1 tab Povidone Iodine (Betadine 5% Antisepsis Kit) 1 applicatio TOPICAL DRY [facility] Stop: 06/27/18 08:14 Last Admin: 06/24/18 08:38 Dose: 1 applicatio Allergies Allergy/AdvReac Type Severity Reaction Status Date / Time No Known Allergies Allergy Verified 06/24/18 08:37 Home Medications Medication Instructions Recorded Confirmed Type dorzolamide-timolol 1 drp OPHTHALMIC (EYE) BID 05/04/18 06/24/18 History latanoprost 1 drp OPHTHALMIC (EYE) QPM 05/04/18 06/24/18 History brimonidine 1 drp OPHTHALMIC (EYE) BID 05/11/18 06/24/18 History aspirin 81 mg PO DAILY 06/24/18 06/24/18 History docusate sodium [Colace] 100 mg PO BID 06/24/18 06/24/18 History ferrous sulfate 325 mg PO BID 06/24/18 06/24/18 History lisinopril 10 mg PO DAILY 06/24/18 06/24/18 History lovastatin 40 mg PO QPM 06/24/18 06/24/18 History metoprolol tartrate 12.5 mg PO BID 06/24/18 06/24/18 History polyethylene glycol 3350 17 g PO DAILY PRN 06/24/18 06/24/18 History warfarin 5 mg PO DAILY 06/24/18 06/24/18 History Physical Exam Vital signs: Vital Signs 06/24/18 08:30 06/24/18 12:57 Temperature 97.9 F 97.7 F Pulse Rate 83 66 Respiratory Rate 16 18 Blood Pressure 151/88 H 153/63 H Pulse Oximetry 100 100 Intake & Output 06/23/18 06/24/18 06/24/18 18:59 06:59 18:59 Intake Total 750 / 750 Output Total 100 / 100 Balance 650 / 650 Weight 65.8 kg Intake: IV 50 / 50 Ancef 2 GM Premix Inj 2 gm In 50 / 50 50 ml @ 100 mls/hr IV.SIG ONCE [facility] Rx#:[id number] Anesthesia Amount 700 / 700 Output: Estimated Blood Loss 100 / 100 Other: Weight On Admission 65.8 kg Narrative: - Constitutional no acute distress, slightly hypertensive - Routine HEENT Exam EOMI, ENT: mucous membranes moist - Routine Neck Exam No JVD, right IJ introducer in place with temporary pacemaker wire - Routine Respiratory Exam Air entry equal bilaterally. No wheezes or crackles - Routine Cardiovascular Exam S1-S2 normal. No murmurs. Midline CABG incision intact - Routine Abdominal Exam Abdomen soft, normoactive bowel sounds - Routine Extremities Exam Bilateral groins dressing intact no hematoma. Peripheral pulses palpable - Routine Neurological Exam Awake alert oriented. No focal deficits. Follows commands x4 Septic Shock Reassessment Septic shock perfusion: reassessment completed Assessment and Plan - Assessment and Plan Plan: ASSESSMENT: Successful transcatheter aortic valve replacement with a 29 mm Medtronic bioprosthetic valve Severe aortic stenosis Coronary artery disease status post CABG in April 2018 History of CVA AAA (abdominal aortic aneurysm) History of atrial fibrillation Dyslipidemia Hypertension History of sick sinus syndrome PLAN: NEURO: -As needed morphine or p.o. Tylenol for pain RESP: -Aggressive pulmonary toilet CV: -s/p uneventful TAVR as above 29 mm Medtronic bioprosthetic valve -Received aspirin and loading dose of Plavix continue scheduled aspirin and Plavix -Postprocedure RONY showed mean gradient of 6, mild perivalvular leak -Resume home meds per cardiology GI: -Diet when cleared by Dr. Nunn : -Monitor renal function closely. ID: -Perioperative antibiotics HEME: -Monitor CBC, coags ENDO: -Electrolyte replacement per protocol Level 2 consult Code Status: Full
--- NOTE | 2018-06-24 17:02 | ECG ---
Date Performed: 06/24/2018 Time Performed: 14:05:24 PTAGE: 87 years EKG: Sinus bradycardia. Prolonged QT interval Lateral T wave changes are nonspecific Borderline ECG Compared to prior electrocardiogram, QT interval has slightly increased. DOCTOR: Bob Mott Interpretating Date/Time 06/24/2018 17:02:02
--- NOTE | 2018-06-24 21:06 | MB ---
cc: Sandra Millan MD,Michael Virk MD DATE: 06/24/2018 REASON FOR CONSULTATION: Evaluation for possible conduction disease, post-TAVR. HISTORY OF PRESENT ILLNESS: Mr. Engel is an 87-year-old gentleman with history of coronary artery disease, aortic stenosis, who was referred for transaortic valve replacement. He also has a history of atrial fibrillation and CVA. Post-procedure, I was consulted for evaluation and management. The chart was reviewed. The patient was evaluated. ALLERGIES: None. SOCIAL HISTORY: Negative for smoking and drinking. FAMILY HISTORY: Noncontributory to his current medical condition. MEDICATIONS: Aspirin 81 mg a day. He is on Plavix 75 mg a day. He is on metoprolol p.r.n. He is on Percocet. He was on lisinopril 10 mg a day, lovastatin 40 mg a day, Coumadin as directed. REVIEW OF SYSTEMS: Currently, he wants to get out of bed. No chest pain, no chest discomfort. PHYSICAL EXAMINATION: GENERAL: Alert, fully oriented. VITAL SIGNS: His blood pressure on evaluation is 174/52, pulse 58, respiratory rate 18. LUNGS: Ventilated. CARDIOVASCULAR: S1, S2. No gallop. No murmur. ABDOMEN: Soft. No masses. No bruits. EXTREMITIES: No edema. ELECTROCARDIOGRAM: Sinus rhythm. No acute ST or T-wave changes. ASSESSMENT AND RECOMMENDATIONS: Mr. Engel is stable and is in sinus rhythm. No significant electrocardiographic change compared to the one pre and post-procedure. At this point, my recommendation is to continue current management. If the patient is stable in the morning, could be discharged whenever it is okay with the managing team. I will be available on a p.r.n. basis. Sandra Millan MD HS/rh , 07:12 PM , 07:20 PM
--- NOTE | 2018-06-24 21:34 | ECG ---
Date Performed: 06/24/2018 Time Performed: 08:08:18 PTAGE: 87 years EKG: Sinus rhythm . Inferior/lateral T wave changes are nonspecific Borderline ECG PREVIOUS TRACING : 05/13/2018 16.05 Compared to previous tracing, ANTERIOR ST ELEVATION HAS RES OLVED DOCTOR: Lazaro Herzog Interpretating Date/Time 06/24/2018 21:33:37
[2018-06-25 03:31] LABS: Bilirubin,Urine Negative (Negative); Clarity,Urine Clear (Clear); Color,Urine Yellow (Yellw/Straw); Glucose,Urine (UA) Negative (Negative); Leukocyte Esterase,Urine Negative (Negative); Mucus,Urine Few /lpf (Occasional); Nitrite,Urine Negative (Negative); Specific Gravity,Urine 1.043 (1.002-1.035); Squamous Epithelial Cell,Urine <1 /hpf (0-5)
[2018-06-25 05:08] LABS: Hemoglobin 10.5 gm/dL (13.0-17.0); Mean Corpuscular HGB Conc 32.8 % (32.0-36.0); Mean Corpuscular Hemoglobin 30.5 pg (27.0-34.0); Mean Platelet Volume 8.1 fL (7.0-11.0); Platelet Count 124 th/mm3 (150-450); Red Blood Count 3.44 mil/mm3 (4.50-5.90); Red Cell Distribution Width 14.9 % (11.6-17.2); White Blood Count 11.2 th/mm3 (4.0-11.0)
[2018-06-25 05:31] LABS: Alanine Aminotransferase 12 U/L (12-78); Albumin 2.8 g/dL (3.4-5.0); Alkaline Phosphatase 76 U/L (45-117); Anion Gap 4 meq/L (5-15); Aspartate Aminotransferase 18 U/L (15-37); Blood Urea Nitrogen 11 mg/dL (7-18); Calcium 7.9 mg/dL (8.5-10.1); Carbon Dioxide 25.7 meq/L (21.0-32.0); Chloride 110 meq/L (98-107); Glomerular Filtration Rate Greater Than 89 mL/min (>89); Glucose,Random 104 mg/dL (74-106); Potassium 4.3 meq/L (3.5-5.1); Sodium 140 meq/L (136-145); Total Protein 5.2 g/dL (6.4-8.2)
--- NOTE | 2018-06-25 07:57 | P.PNCV ---
- Note Subjective/Hospital Course: 06/25 Doing well Hemodynamics stable Groins soft without hematoma Anticipate discharge later today Objective: Vital Signs - 24 hr 06/24/18 08:30 06/24/18 12:57 06/24/18 15:00 Temperature 97.9 F 97.7 F 97.6 F Pulse Rate 83 66 58 L Respiratory Rate 16 18 16 Blood Pressure 151/88 H 153/63 H 174/52 H Pulse Oximetry 100 100 97 06/24/18 16:00 06/24/18 19:00 06/24/18 20:53 Temperature 97.6 F Pulse Rate 48 L 82 Respiratory Rate 16 18 Blood Pressure 91/41 L Pulse Oximetry 99 99 06/24/18 23:00 06/24/18 23:40 06/25/18 03:00 Temperature 97.6 F Pulse Rate 90 69 69 Respiratory Rate 18 Blood Pressure 135/58 L Pulse Oximetry 97 06/25/18 03:45 Temperature Pulse Rate 70 Respiratory Rate 18 Blood Pressure 111/47 L Pulse Oximetry 97 Labs: Laboratory Results - last 12 hr 06/25/18 06/25/18 06/25/18 01:25 04:29 04:29 WBC 11.2 H RBC 3.44 L Hgb 10.5 L Hct 32.0 L MCV 93.0 MCH 30.5 MCHC 32.8 RDW 14.9 Plt Count 124 L D MPV 8.1 Sodium 140 Potassium 4.3 Chloride 110 H Carbon Dioxide 25.7 Anion Gap 4 L BUN 11 Creatinine 0.80 Estimated GFR Greater than 89 Random Glucose 104 Calcium 7.9 L Total Bilirubin 0.5 AST 18 ALT 12 Alkaline Phosphatase 76 Total Protein 5.2 L D Albumin 2.8 L Urine Color Yellow Urine Clarity Clear Urine pH 5.0 Ur Specific [place] 1.043 H Urine Protein Negative Urine Glucose (UA) Negative Urine Ketones Trace H Urine Occult Blood Negative Urine Nitrate Negative Urine Bilirubin Negative Urine Urobilinogen Less than 2 Ur Leukocyte Esterase Negative Urine RBC 1 Ur Squamous Epith Cells <1 Urine Mucus Few H Micro UA Comment Culture not ind Ur Microscopic Review Not Reportable Urine Culture Comments Culture not ind Result Diagrams: 06/25/18 04:29 06/25/18 04:29
--- NOTE | 2018-06-25 07:59 | ECG ---
Date Performed: 06/25/2018 Time Performed: 04:51:48 PTAGE: 87 years EKG: Sinus rhythm . Inferior/lateral T wave changes Normal ECG No significant change from prior electrocardiogram. PREVIOUS TRACING : 06/24/2018 14.05 DOCTOR: Bob Mott Interpretating Date/Time 06/25/2018 07:57:46
[2018-06-25] MEDS ORDERED: Ferrous Sulfate 325 MG Tablet PO SCH (09:00)
--- NOTE | 2018-06-25 09:27 | P.DS ---
Date of admission: 06/24/18 07:43 Primary care physician: Dr David Wu Brief History from admission: This 87-year-old gentleman who has history of coronary artery disease and severe aortic valve stenosis. 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 Patient did get a left internal mammary to left anterior descending coronary artery bypass graft. Patient is now here for scheduled transcatheter aortic valve replacement. Patient update on day of discharge: Patient did well overnight. No complaints. DS: Diagnosis - Discharge Diagnosis (1) Severe aortic stenosis Status: Chronic DS: Medications - Discharge Medications Prescriptions: clopidogrel [Plavix] 75 mg PO DAILY #30 tab DS: Summary Hospital Course: Transcatheter aortic valve replacement was performed on June 24, 2018. Patient had an unremarkable postoperative course and is ready for discharge. No complaints. - Time Spent with Patient Total time spent providing and/or coordinating discharge services: Greater than 30 minutes Exam Vital signs: Vital Signs 06/24/18 12:57 06/24/18 15:00 06/24/18 16:00 Temperature 97.7 F 97.6 F Pulse Rate 66 58 L 48 L Respiratory Rate 18 16 16 Blood Pressure 153/63 H 174/52 H Pulse Oximetry 100 97 06/24/18 19:00 06/24/18 20:53 06/24/18 23:00 Temperature 97.6 F Pulse Rate 82 90 Respiratory Rate 18 Blood Pressure 91/41 L Pulse Oximetry 99 99 06/24/18 23:40 06/25/18 03:00 06/25/18 03:45 Temperature 97.6 F Pulse Rate 69 69 70 Respiratory Rate 18 18 Blood Pressure 135/58 L 111/47 L Pulse Oximetry 97 97 06/25/18 08:08 Temperature 98.2 F Pulse Rate 77 Respiratory Rate 16 Blood Pressure 136/63 Pulse Oximetry 98 Intake & Output 06/24/18 06/25/18 06/25/18 18:59 06:59 18:59 Intake Total 1230 / 1230 960 / 960 Output Total 100 / 100 1225 / 1225 Balance 1130 / 1130 -265 / -265 Weight 65.8 kg 67.8 kg Intake: IV 50 / 50 Ancef 2 GM Premix Inj 2 gm In 50 / 50 50 ml @ 100 mls/hr IV.SIG ONCE [facility] Rx#:[id number] Oral 480 / 480 960 / 960 Anesthesia Amount 700 / 700 Output: Urine 1225 / 1225 Estimated Blood Loss 100 / 100 Other: Weight On Admission 65.8 kg - Constitutional no acute distress - Routine HEENT Exam Head: Present: normocephalic Eye: Present: EOMI, PERRL ENT: Present: mucous membranes moist - Routine Neck Exam Absent: JVD - Routine Respiratory Exam Present: CTA bilaterally - Routine Cardiovascular Exam Present: RRR. Absent: murmur - Routine Abdominal Exam Present: soft, normoactive bowel sounds - Routine Extremities Exam Absent: edema - Routine Neurological Exam Present: oriented X3, CN II-XII intact. Absent: sensory deficit, motor deficit Results Procedures completed during hospitalization: Transcatheter aortic valve replacement Labs on day of discharge: Labs from last 24 hours 06/25/18 06/25/18 06/25/18 04:29 04:29 01:25 WBC 11.2 H RBC 3.44 L Hgb 10.5 L Hct 32.0 L MCV 93.0 MCH 30.5 MCHC 32.8 RDW 14.9 Plt Count 124 L D MPV 8.1 Sodium 140 Potassium 4.3 Chloride 110 H Carbon Dioxide 25.7 Anion Gap 4 L BUN 11 Creatinine 0.80 Estimated GFR Greater than 89 Random Glucose 104 Calcium 7.9 L Total Bilirubin 0.5 AST 18 ALT 12 Alkaline Phosphatase 76 Total Protein 5.2 L D Albumin 2.8 L Urine Color Yellow Urine Clarity Clear Urine pH 5.0 Ur Specific [place] 1.043 H Urine Protein Negative Urine Glucose (UA) Negative Urine Ketones Trace H Urine Occult Blood Negative Urine Nitrate Negative Urine Bilirubin Negative Urine Urobilinogen Less than 2 Ur Leukocyte Esterase Negative Urine RBC 1 Ur Squamous Epith Cells <1 Urine Mucus Few H Micro UA Comment Culture not ind Ur Microscopic Review Not Reportable Urine Culture Comments Culture not ind MTS Gel Crossmatch 06/24/18 07:56 WBC RBC Hgb Hct MCV MCH MCHC RDW Plt Count MPV Sodium Potassium Chloride Carbon Dioxide Anion Gap BUN Creatinine Estimated GFR Random Glucose Calcium Total Bilirubin AST ALT Alkaline Phosphatase Total Protein Albumin Urine Color Urine Clarity Urine pH Ur Specific [place] Urine Protein Urine Glucose (UA) Urine Ketones Urine Occult Blood Urine Nitrate Urine Bilirubin Urine Urobilinogen Ur Leukocyte Esterase Urine RBC Ur Squamous Epith Cells Urine Mucus Micro UA Comment Ur Microscopic Review Urine Culture Comments MTS Gel Crossmatch See Detail Discharge Plan - Discharge Disposition Patient Disposition: 01 Discharge Home - Discharge Condition Condition: Good - Discharge Order Discharge Orders: Discharge Order (Routine); Ordered 06/25/18 Ordered By: Michael Nunn Cardiology Clear for Discharge (Routine); Ordered 06/25/18 Ordered By: Michael Nunn - Discharge Details Anticipated Discharge Date: 06/25/18 - Physicians Team Attending Provider: Michael Nunn Other Providers: Zoya Barbosa MD ; Brayden Simpson MD ; Sandra Millan MD - Rxs /Orders / Referrals /Forms Prescriptions: New clopidogrel [Plavix] 75 mg Tablet 75 mg PO DAILY Qty: 30 RF: 0 Continue aspirin 81 mg Tablet,Delayed Release (Dr/Ec) 81 mg PO DAILY brimonidine 0.2 % Drops 1 drp OPHTHALMIC (EYE) BID docusate sodium [Colace] 100 mg Capsule 100 mg PO BID dorzolamide-timolol 22.3-6.8 mg/mL Drops 1 drp OPHTHALMIC (EYE) BID ferrous sulfate 325 mg (65 mg iron) Tablet 325 mg PO BID latanoprost 0.005 % Drops 1 drp OPHTHALMIC (EYE) QPM lisinopril 10 mg Tablet 10 mg PO DAILY lovastatin 40 mg Tablet 40 mg PO QPM metoprolol tartrate 25 mg Tablet 12.5 mg PO BID [id number]-calcium-mins [Thera M Plus (ferrous fumarat)] 9 mg iron-400 mcg Tablet 1 tab PO DAILY Qty: 30 RF: 0 polyethylene glycol 3350 17 gram Powder In Packet 17 g PO DAILY PRN (Reason: Constipation) warfarin 5 mg Tablet 5 mg PO DAILY Referrals: Dr David Wu MD [Other] - See Instructions - Discharge Instructions Patient Printed Instructions: Transcatheter Aortic Valve Replacement (DC) Additional Instructions: Continue to take the PLAVIX (Clopidogrel) until your INR is therapeutic between 2-3. Once INR greater than 2, you may discontinue the PLAVIX(Clopidogrel). INR to be drawn Friday at your regular lab location, and follow with provider who usually manages Warfarin dosing and INR. Please call your PCP and make follow up appointment for next one to two weeks. Call Bety Brown RN Structural Financial Analysis Advisor with any questions or concerns. Office will call you with appointments for your 30 day and 1 year echocardiograms [address] Nunn 07/28/18 140pm [phone] [facility] Cardiology [address] [address] [address] Nunn 06/29/19 140pm [phone] [facility] Cardiology [address] [address]
--- NOTE | 2018-06-25 10:41 | ECHRPT ---
Indication: CONCLUSIONS Normal left ventricular size. Wall thickness is measured at the upper limits of normal. The left ventricular systolic function is normal with an estimated ejection fraction in the range of 55-60%. Severe aortic valve stenosis Status post perioperative transcatheter aortic valve replacement Mild perivalvular leak No residual stenosisThe pulmonary valve is not well visualized. BP: / HR: Rhythm: MEASUREMENTS (Male / Female) Normal Values Technical Quality: 2D ECHO LV Diastolic Diameter PLAX 4.0 cm 4.2 - 5.9 / 3.9 - 5.3 cm LV Systolic Diameter PLAX 3.1 cm LVOT Diameter 2.0 cm DOPPLER AV Peak Velocity 223.6 cm/s AV Peak Gradient 20.0 mmHg AV Mean Gradient 10.0 mmHg AV Velocity Time Integral 41.9 cm LVOT Peak Velocity 138.0 cm/s LVOT Peak Gradient 7.6 mmHg LVOT Velocity Time Integral 30.3 cm AV Area Cont Eq vti 2.3 cm AV Area Cont Eq pk 1.9 cm FINDINGS LEFT VENTRICLE Normal left ventricular size. Wall thickness is measured at the upper limits of normal. The left ventricular systolic function is normal with an estimated ejection fraction in the range of 55-60%. RIGHT VENTRICLE Normal right ventricular size and systolic function. LEFT ATRIUM The left atrial size is normal. RIGHT ATRIUM The right atrial size is normal. ATRIAL SEPTUM Normal atrial septal thickness without atrial level shunting by limited color doppler interrogation. AORTA The aortic root and proximal ascending aorta are normal in size on limited imaging. MITRAL VALVE Structurally normal mitral valve. No mitral valve stenosis or regurgitation. AORTIC VALVE Severe aortic valve stenosis Status post perioperative transcatheter aortic valve replacement Mild perivalvular leak No residual stenosis TRICUSPID VALVE Structurally normal tricuspid valve. No tricuspid valve stenosis or regurgitation. PULMONARY VALVE The pulmonary valve is not well visualized. VESSELS The inferior vena cava is normal in size. PERICARDIUM No pericardial effusion. Michael Nunn MD, FACC (Electronically Signed) Final Date:25 June 2018 10:40
[2018-06-25 11:26] VITALS: BP 122/60; PULSE 74; RESP 18; TEMP 98.4; O2SAT 97
== END 2018-06-25 17:23 | disposition home or self-care (01) ==
LOC: HSDI 07:43 → HDIC 07:46 → HCVI 12:54 → HCPC 06-25 08:45
PROVIDERS: ADMIT Internal Medicine; ATTEND Internal Medicine
PROC: TAVRHYB (ICD-10-PCS; 2018-06-24 11:30)